=== PATIENT | female | born 1955 | race Caucasian/White ===

== ENCOUNTER 2020-07-10 09:28 | Outpatient (REF) | payer MEDICARE, SELFPAY ==
[2020-07-10 10:11] LABS: MANUAL DIFF FLAG NO
[2020-07-10 10:17] LABS: Basophils Percent Auto 0.8 % (0-2); Eosinophils Absolute Auto 0.1 X10*3/uL (0.0-0.4); Eosinophils Percent Auto 2.8 % (0-4); Hematocrit 41.8 % (37-47); Hemoglobin 13.5 g/dl (12.0-16.0); Imm Gran Abs Auto 0.01 X10*3/uL (0.00-0.03); Imm Gran Pct Auto 0.3 % (0.0-0.4); Mean Corpuscular HGB Conc 32.3 g/dl (31.0-35.0); Mean Corpuscular Volume 83.6 fL (80-98); Mean Platelet Volume 9.8 fL (9.4-12.3); Monocytes Absolute Auto 0.4 X10*3/uL (0.1-1.2); Monocytes Percent Auto 11.5 % (2-11); Neutrophils Absolute Auto 2.1 X10*3/uL (2.0-8.3); Neutrophils Percent Auto 57.6 % (45-73); Platelet Count 185 X10*3/uL (160-400); Red Cell Distribution Width 12.6 % (11.0-16.0); White Blood Count 3.6 X10*3/uL (4.8-10.8)
[2020-07-10 10:51] LABS: Alanine Aminotransferase 26 U/L (0-31); Albumin Level 4.1 g/dL (3.5-5.0); Alkaline Phosphatase 88 U/L (39-117); Anion Gap 8 (12-20); Aspartate Amino Transferase 21 U/L (5-31); Bilirubin Total 0.6 mg/dL (0.0-1.0); Blood Urea Nitrogen 16 mg/dL (9-16); Calcium 9.4 mg/dL (8.4-10.2); Carbon Dioxide 32 mmol/L (22-29); Chloride 104 mmol/L (96-108); Cholesterol 133 mg/dL; Estimated Glomerular Filt Rate > 60; Glucose Fasting 98 mg/dL (60-99); HDL Cholesterol 52 mg/dL; LDL Cholesterol Calculated 68 mg/dl; Potassium 3.8 mmol/l (3.3-5.1); Sodium 140 mmol/L (135-145); Total Protein 6.4 g/dL (6.5-8.0); Triglycerides 67 mg/dL
[2020-07-10 11:04] LABS: Thyroid Stimulating Hormone 0.89 uIU/mL (0.32-4.0)
--- NOTE | 2020-07-10 12:29 | MM_ITS ---
EXAMINATION: MM DIAGNOSTIC DIGITAL BREAST TOMOSYNTHESIS, LEFT CLINICAL INFORMATION: Six-month followup left breast calcifications. COMPARISON: Mammography: 01/17/2020 and studies dating back to 05/11/2011 TECHNIQUE: Digital breast tomosynthesis is performed in both the craniocaudal and mediolateral oblique views along with computer-aided detection (CAD). Synthesized 2D images are generated from the tomosynthesis. Additional spot magnification views left breast in craniocaudal and 90 degree mediolateral views performed. FINDINGS: There are scattered areas of fibroglandular density (ACR BI-RADS breast composition Category b). There is stability of calcifications in the mid lateral left breast. No linear branching forms identified. No developing mass is identified. No architectural distortion. Results are provided to the patient at time of visit by the technologist. MM/MM tomosynthesis diagnostic LT IMPRESSION: There are no significant changes from prior study. ASSESSMENT: BI-RADS 3: Probably Benign. RECOMMENDATION: Diagnostic mammography in 6 months. This patient's information was entered into a reminder system with a target due date for their next mammogram.
== END 2020-07-10 09:29 | disposition home or self-care (01) ==
LOC: HO.MAMMO 09:28
PROVIDERS: PCP Internal Medicine; Visit Provider Internal Medicine
DX: R92.1 Mammographic calcification found on diagnostic imaging of breast (principal); Z00.00 Encounter for general adult medical examination without abnormal findings; E11.9 Type 2 diabetes mellitus without complications; E03.9 Hypothyroidism, unspecified
CPT/HCPCS: 36415; 77061; 77065; 80053; 80061; 84443; 85025

== ENCOUNTER → 2021-01-08 09:45 | Outpatient (BNVA) | payer MEDICARE, SELFPAY | PROVIDERS: PCP Internal Medicine; Referring Provider Internal Medicine; Visit Provider Internal Medicine Cardiovascular Disease | DX: R07.89 Other chest pain (principal); I10 Essential (primary) hypertension | CPT/HCPCS: 93005; 99212 ==

== ENCOUNTER 2021-01-15 07:30 | Outpatient (REF) | payer MEDICARE, SELFPAY ==
--- NOTE | ~2021-01-15 | MM_ITS ---
EXAMINATION: MM DIAGNOSTIC DIGITAL BREAST TOMOSYNTHESIS, BILATERAL CLINICAL INFORMATION: Due for yearly. Also follow-up probable benign left breast calcifications mid 3:00 position. The lifetime risk of breast cancer based on the Tyrer-Cuzick Model is 6%. COMPARISON: Mammography: 07/10/2020, 01/17/2020, 69 03/23/2020 (BI-RADS 0) 12/28/2018, 01/07/2009. TECHNIQUE: Digital breast tomosynthesis is performed in both the craniocaudal and mediolateral oblique views along with computer-aided detection (CAD). Synthesized 2D images are generated from the tomosynthesis. Additional left magnification CC and left magnification ML views are provided. FINDINGS: There are scattered areas of fibroglandular density (ACR BI-RADS breast composition Category b). Parenchymal pattern is similar to prior studies. There is no interval mass or developing density or architectural abnormality. Chronic bilateral nipple retraction is again noted. The axilla are unremarkable. No abnormal right breast calcifications. The calcifications mid 3:00 left breast for follow-up are similar in number from prior diagnostic exam. Only 1 or 2 of the calcifications show layering milk of calcium. Most of the calcifications are punctate and do not confirms layering on follow-up today. Therefore, stereotactic sampling is suggested. Results and management options are discussed with the patient at time of visit. Patient is in agreement with tissue sampling under stereotactic guidance. MM/MM tomosynthesis diagnostic BI IMPRESSION: 1. Left: Calcifications mid 3:00 position. Although the calcifications are unchanged in number only 1 or 2 demonstrate layering. 2. Right: No mammographic evidence of malignancy. ASSESSMENT: BI-RADS 4: Suspicious (subcategory 4A: Low suspicion for malignancy) RECOMMENDATION: Stereotactic sampling left breast calcifications. This patient's information was entered into a reminder system with a target due date for their next mammogram.
== END 2021-01-15 07:31 | disposition home or self-care (01) ==
LOC: HO.MAMMO 07:30
PROVIDERS: PCP Internal Medicine; Visit Provider Internal Medicine
DX: R92.1 Mammographic calcification found on diagnostic imaging of breast (principal)
CPT/HCPCS: 77062; 77066

== ENCOUNTER 2021-01-26 07:10 | Outpatient (REF) | payer MEDICARE, SELFPAY ==
--- NOTE | ~2021-01-26 | MM_ITS ---
EXAMINATION: STEREOTACTIC TOMOSYNTHESIS-GUIDED VACUUM-ASSISTED BREAST BIOPSY, LEFT SPECIMEN RADIOGRAPH, LEFT POST PROCEDURE DIGITAL MAMMOGRAM, LEFT CLINICAL INFORMATION: Calcifications mid 3:00 left breast similar in number to prior diagnostic exam. Majority not showing layering at diagnostic imaging. Tissue sampling is suggested for further information. COMPARISON: Mammography 01/15/2021, 07/10/2020, 01/17/2020, 01/10/2020. TECHNIQUE/PROCEDURE: Informed consent was obtained from the patient after discussion of the benefits, risks, and alternatives to biopsy today. Patient did not discontinue may be aspirin, last dose yesterday. Possibility of hematoma and bruising discussed. Patient appeared to understand. Gave opportunity for questions. Patient wished to proceed with procedure and signed consent form. BIOPSY TABLE: Novopyx[employer] Prone Biopsy System. LESION: Fine calcifications central 3:00 left breast. There are more layering milk of calcium calcifications seen at time of targeting then appreciated on most recent diagnostic mammography. LOCAL ANESTHESIA: 8 mL 1% lidocaine; 15 mL 1% lidocaine with epinephrine. DERMATOTOMY: Single skin elijah dermatotomy performed. NEEDLE: [employer] 9-gauge vacuum assisted core biopsy device. APPROACH: lateral medial. TARGETING: Combination of digital breast tomosynthesis and stereotactic digital mammography used for targeting. CORES: 15. CLIP: [employer] T-shaped marker. SPECIMEN RADIOGRAPH: Specimen radiograph is taken in separate room using digital mammography. There are at least 6 fine calcifications in the excised cores. POST PROCEDURE UNILATERAL DIGITAL MAMMOGRAM: The post biopsy mammogram is performed in separate room using separate digital mammography equipment from the biopsy procedure. CC and ML views are obtained. There are scattered areas of fibroglandular density (breast composition category: b). The clip marker is 2.8 cm more superficial than the biopsy cavity on the CC view consistent with accordion effect. The calcifications are decreased at the biopsy site. No gross hematoma. The patient tolerated the procedure well. No immediate complications. Home instructions reviewed with the patient. Final pathology results are pending. MM/MM stereotactic biopsy LT IMPRESSION: 1. Digital tomosynthesis-guided core biopsy left breast with clip placement. The clip marker is 2.8 cm more superficial from the biopsy cavity consistent with accordion effect. 2. Specimen radiograph taken and post procedure mammogram. 3. Final pathology results pending. An addendum report will be issued.
[2021-01-26 08:08] LABS: Anion Gap 10 (12-20); Blood Urea Nitrogen 20 mg/dL (9-16); Calcium 9.1 mg/dL (8.4-10.2); Carbon Dioxide 28 mmol/L (22-29); Chloride 105 mmol/L (96-108); Estimated Glomerular Filt Rate > 60; Glucose Random 94 mg/dL (60-115); Potassium 3.9 mmol/L (3.3-5.1); Sodium 139 mmol/L (135-145)
== END 2021-01-26 07:11 | disposition home or self-care (01) ==
LOC: HO.MAMMO 07:10
PROVIDERS: Absent Provider Internal Medicine Cardiovascular Disease; PCP Internal Medicine; Visit Provider Internal Medicine
DX: R92.1 Mammographic calcification found on diagnostic imaging of breast (principal); I10 Essential (primary) hypertension
CPT/HCPCS: 19081; 36415; 80048; 88305

== ENCOUNTER → 2021-02-23 09:32 | Outpatient (REF) | payer MEDICARE, SELFPAY ==
--- NOTE | 2021-02-23 09:38 | CA_ITS ---
Transthoracic Echocardiogram Patient (Last, First, Middle): Amelie Chahal, Gender: Female Date of : 1955 Age: 65 Procedure Date: 02/23/2021 Procedure Type: Transthoracic Echocardiogram Location: OP Height: 160.02 cm Weight: 78.93 kg BSA: 1.82 m2 Heart Rate: bpm BP: 128 / 80 mmHg Auto Transmission Technician: Referring MD: Ritesh Sanders MD Symptoms: I10 - Essential (primary) hypertension Study Quality: Fair ECG Rhythm: Sinus Conclusions: - The left ventricular systolic function is normal. The visually estimated ejection fraction is between 60-65%. - There is a mobile atrial septum noted. There is no evidence of interatrial shunt by color Doppler. - No obvious valvular pathology seen on this study. - If clinically indicated, consider agitated saline contrast. Findings Left Ventricle Normal left ventricular cavity size. There is mildly increased left ventricular wall thickness. The left ventricular systolic function is normal. The visually estimated ejection fraction is between 60-65%. There is no evidence of regional wall motion abnormalities. Diastolic function is normal for age. E/E prime ratio is <8, consistent with normal filling pressures. Right Ventricle Normal right ventricular cavity size and systolic function. Atria The left atrium is mildly dilated. There is a mobile atrial septum noted. There is no evidence of interatrial shunt by color Doppler. The right atrium is normal in size. Aortic Valve There is a normal trileaflet aortic valve. There is no aortic valve stenosis. There is trace (trivial) aortic valve regurgitation. Mitral Valve There is mild mitral annular calcification. There is no mitral valve regurgitation. There is no mitral valve stenosis. Pulmonic Valve The pulmonic valve was not well visualized. There is trace pulmonic valve regurgitation. Tricuspid Valve Normal tricuspid valve structure. There is trace tricuspid valve regurgitation. The pulmonary artery systolic pressure is normal. Great Vessels Top normal ascending aortic size at 3.7 cm. Venous The inferior vena cava is normal in size and collapses greater than 50% with inspiration. Pericardium/Pleural There is no evidence of pericardial effusion. Prior Study Comparison No significant change compared to prior study dated: 11/10/2017. Recommendations, Care & Conclusions No obvious valvular pathology seen on this study. Measurements 2D Linear Measurements IVSd: 1.23 0.6-0.9/0.6-1.0 cm LVIDd: 3.98 3.9-5.3/4.2-5.9 cm LVIDd Index: 2.19 2.4-3.2/2.2-3.1 cm/m2 LVIDs: 2.71 2.0-3.6 cm LVPWd: 1.28 0.7-1.1 cm Ao Root: 3.30 2.1-3.5 cm LA Diam: 3.90 2.7-3.8/3.0-4.0 cm LAIDs Index: 2.14 1.5-2.3 cm/m2 LV Mass: 218.73 67-162/88-224 g LV Mass Index: 120.18 43-95/49-115 g/m2 LVOT Diam: 2.20 3.0+(-)1.3 cm 2D Systolic Function EF 4C: 62.60 >55% EF 2C: 57.20 >55% EF BiP: 60.10 >55% Mitral Valve MV Pk E: 0.56 MV PK A: 0.80 MV Decel Time: 315.00 E/A: 0.70 E'Lateral: 11.20 E'Medial: 9.36 E/E' Med: 6.00 E/E' Lat: 5.00 PHT: 92.00 MVA PHT: 2.39 Decel Trinity: 1.77 Aortic Valve AoV Pk Rodrick: 1.36 AoV Mn Rodrick: 0.92 AoV VTI: 0.31 AoV Pk Grad: 7.00 Aov Mn Grad: 4.00 REJI Cont.VTI: 2.74 LVOT LVOT Pk Rodrick: 1.01 LVOT Mn Rodrick: 0.60 LVOT VTI: 0.23 LVOT Pk Grad: 4.00 LVOT Mn Grad: 2.00 LVOT Diam: 2.20 LVOT Area: 3.80 Diastolic Function MV Pk E: 0.56 MV Pk A: 0.80 E/A: 0.70 E'Medial: 9.36 E/E' Med: 6.00 E' Laterial: 11.20 E/E' Lat: 5.00 Right Ventricle TAPSE (mm): 20.00 TVS' Rodrick: 13.00 Tricuspid Valve TR Pk Rodrick: 2.01 TR Pk Grad: 16.00 RA Press: 3.00 RVSP: 19.00 Great Vessels Aorta Ao Root-2D: 3.30 2.0-3.7 cm Ao Asc: 3.70 2.1-3.4 cm Pulmonary Valve PV Pk Rodrick: 0.75 Peak PV Grad: 2.00 Updated in Other Vendor System with Status of Final Luis Samano MD electronically signed on 02/23/2021 4:44:52 PM with status of Final
== END ==
LOC: HO.CARD 09:32
PROVIDERS: PCP Internal Medicine; Visit Provider Internal Medicine Cardiovascular Disease
DX: R07.89 Other chest pain (principal); I10 Essential (primary) hypertension
CPT/HCPCS: 93306

== ENCOUNTER → 2021-04-02 08:53 | Outpatient (BNVA) | payer MEDICARE, SELFPAY | PROVIDERS: PCP Internal Medicine; Referring Provider Internal Medicine; Visit Provider Internal Medicine Cardiovascular Disease | DX: I25.10 Atherosclerotic heart disease of native coronary artery without angina pectoris (principal); I10 Essential (primary) hypertension | CPT/HCPCS: 99212 ==

== ENCOUNTER 2021-04-09 07:03 | Outpatient (REF) | payer MEDICARE, SELFPAY ==
[2021-04-09 07:48] LABS: Cholesterol 135 mg/dL; HDL Cholesterol 62 mg/dL; LDL Cholesterol Calculated 63 mg/dl; Triglycerides 50 mg/dL
== END 2021-04-09 07:04 | disposition home or self-care (01) ==
LOC: HO.LAB 07:03
PROVIDERS: PCP Internal Medicine; Visit Provider Internal Medicine Cardiovascular Disease
DX: E78.5 Hyperlipidemia, unspecified (principal); I25.10 Atherosclerotic heart disease of native coronary artery without angina pectoris
CPT/HCPCS: 36415; 80061; 86141

== ENCOUNTER 2021-06-05 18:49 | Outpatient (REF) | payer MEDICARE, SELFPAY ==
[2021-06-05 19:41] LABS: Influenza A PCR NEGATIVE (Negative); Influenza B PCR NEGATIVE (Negative); Resp Syncy Virus RNA Qual PCR NEGATIVE (Negative); SARS COV2 PCR INHOUSE NEGATIVE (Negative)
== END 2021-06-05 18:50 | disposition home or self-care (01) ==
LOC: HO.LNP 18:49
PROVIDERS: Visit Provider Internal Medicine
DX: R43.9 Unspecified disturbances of smell and taste (principal); Z20.822 Contact with and (suspected) exposure to COVID-19
CPT/HCPCS: 0241U

== ENCOUNTER 2021-08-12 08:12 | Outpatient (REF) | payer MEDICARE, SELFPAY ==
--- NOTE | ~2021-08-12 | XR_ITS ---
EXAMINATION: TWO-VIEW CHEST AND LEFT HIP CLINICAL INFORMATION: Chest pain. Hip pain. COMPARISON: August 10, 2019 and April 27, 2011 TECHNIQUE: 2 views of the left hip and PA and lateral views of the chest. FINDINGS: PA and [place] the chest do not demonstrate any evidence of acute parenchymal disease, pneumothorax, or pleural effusion. Heart normal size. No evidence of pulmonary edema. There is chronic scarring or calcific lesion seen about the right apex. There is no evidence of acute fracture or dislocation of the left hip. Left hip joint space is maintained. There is spurring of the greater trochanter. XR/XR chest 2V IMPRESSION: No acute parenchymal disease within the chest. Left hip greater trochanter spurring.
--- NOTE | ~2021-08-12 | XR_ITS ---
EXAMINATION: TWO-VIEW CHEST AND LEFT HIP CLINICAL INFORMATION: Chest pain. Hip pain. COMPARISON: August 10, 2019 and April 27, 2011 TECHNIQUE: 2 views of the left hip and PA and lateral views of the chest. FINDINGS: PA and [place] the chest do not demonstrate any evidence of acute parenchymal disease, pneumothorax, or pleural effusion. Heart normal size. No evidence of pulmonary edema. There is chronic scarring or calcific lesion seen about the right apex. There is no evidence of acute fracture or dislocation of the left hip. Left hip joint space is maintained. There is spurring of the greater trochanter. XR/XR hip LT 1V IMPRESSION: No acute parenchymal disease within the chest. Left hip greater trochanter spurring.
[2021-08-12 08:32] LABS: MANUAL DIFF FLAG NO
[2021-08-12 09:01] LABS: Basophils Percent Auto 0.5 % (0-2); Eosinophils Absolute Auto 0.1 X10*3/uL (0.0-0.4); Eosinophils Percent Auto 2.6 % (0-4); Hematocrit 41.2 % (37.0-47.0); Hemoglobin 13.6 g/dl (12.0-16.0); Imm Gran Abs Auto 0.01 X10*3/uL (0.00-0.03); Imm Gran Pct Auto 0.3 % (0.0-0.4); Lymphocytes Percent Auto 27.4 % (20-40); Mean Corpuscular Hemoglobin 27.6 pg (27.0-33.0); Mean Corpuscular Volume 83.6 fL (80.0-98.0); Mean Platelet Volume 10.2 fL (9.4-12.3); Monocytes Absolute Auto 0.4 X10*3/uL (0.1-1.2); Monocytes Percent Auto 10.8 % (2-11); Neutrophils Absolute Auto 2.2 x10*3/uL (2.0-8.3); Neutrophils Percent Auto 58.4 % (45-73); Platelet Count 181 X10*3/uL (160-400); Red Blood Count 4.93 X10*6/uL (4.20-5.50); Red Cell Distribution Width 12.8 % (11.0-16.0); White Blood Count 3.8 X10*3/uL (4.8-10.8)
[2021-08-12 09:37] LABS: Alanine Aminotransferase 25 U/L (0-31); Albumin Level 4.2 g/dL (3.5-5.0); Alkaline Phosphatase 68 U/L (39-117); Anion Gap 9 (12-20); Aspartate Amino Transferase 25 U/L (5-31); Bilirubin Total 0.8 mg/dL (0.0-1.0); Blood Urea Nitrogen 14 mg/dL (9-16); Calcium 9.9 mg/dL (8.4-10.2); Carbon Dioxide 29 mmol/L (22-29); Chloride 105 mmol/L (96-108); Cholesterol 134 mg/dL; Estimated Glomerular Filt Rate > 60; Glucose Fasting 90 mg/dL (60-99); HDL Cholesterol 59 mg/dL; LDL Cholesterol Calculated 65 mg/dl; Potassium 4.1 mmol/L (3.3-5.1); Sodium 139 mmol/L (135-145); Total Protein 6.8 g/dL (6.5-8.0); Triglycerides 54 mg/dL
[2021-08-12 09:58] LABS: Thyroid Stimulating Hormone 1.36 uIU/mL (0.32-4.0)
== END 2021-08-12 08:13 | disposition home or self-care (01) ==
LOC: HO.XRAY 08:12
PROVIDERS: PCP Internal Medicine; Visit Provider Internal Medicine
DX: Z00.00 Encounter for general adult medical examination without abnormal findings (principal); R07.9 Chest pain, unspecified; M25.552 Pain in left hip; Z13.0 Encounter for screening for diseases of the blood and blood-forming organs and certain disorders involving the immune mechanism
CPT/HCPCS: 36415; 71046; 73501; 80053; 80061; 84443; 85025

== ENCOUNTER 2022-01-27 08:30 | Outpatient (REF) | payer MEDICARE, SELFPAY ==
--- NOTE | ~2022-01-27 | MM_ITS ---
EXAMINATION: MM SCREENING DIGITAL BREAST TOMOSYNTHESIS, BILATERAL CLINICAL INFORMATION: Screening. Asymptomatic. Benign left stereotactic biopsy 01/26/2021 (fibrocystic changes, apocrine metaplasia, focal adenosis and microcalcifications. No atypia or malignancy). The lifetime risk of breast cancer based on the Tyrer-Cuzick Model is 6%. COMPARISON: Mammography: 01/26/2021, 01/15/2021, 07/10/2020, 01/17/2020, 01/10/2020,. 12/28/2018 TECHNIQUE: Digital breast tomosynthesis is performed in both the craniocaudal and mediolateral oblique views along with computer-aided detection (CAD). Synthesized 2D images are generated from the tomosynthesis. FINDINGS: There are scattered areas of fibroglandular density (ACR BI-RADS breast composition Category b). There are no significant masses, abnormal calcifications, or other abnormalities. There is biopsy clip marker mid outer left breast with marked decrease in the calcifications consistent with the sampling chronic bilateral nipple retraction is seen similar to prior exam. No significant changes. MM/MM tomosynthesis screening BI IMPRESSION: No mammographic evidence of malignancy. ASSESSMENT: BI-RADS 2: Benign RECOMMENDATION: Routine annual mammography screening. This patient's information was entered into a reminder system with a target due date for their next mammogram.
== END 2022-01-27 08:31 | disposition home or self-care (01) ==
LOC: HO.MAMMO 08:30
PROVIDERS: PCP Internal Medicine; Visit Provider Internal Medicine
DX: Z12.31 Encounter for screening mammogram for malignant neoplasm of breast (principal)
CPT/HCPCS: 77063; 77067

== ENCOUNTER 2022-04-01 08:47 | Outpatient (REF) | payer MEDICARE, SELFPAY ==
[2022-04-01 10:48] LABS: Anion Gap 17 (12-20); Blood Urea Nitrogen 20 mg/dL (9-16); Calcium 9.5 mg/dL (8.4-10.2); Carbon Dioxide 24 mmol/L (22-29); Chloride 101 mmol/L (96-108); Estimated Glomerular Filt Rate > 60; Glucose Random 73 mg/dL (60-115); Magnesium 1.9 mg/dL (1.6-2.6); Sodium 138 mmol/L (135-145)
== END 2022-04-01 08:48 | disposition home or self-care (01) ==
LOC: HO.LAB 08:47
PROVIDERS: PCP Internal Medicine; Referring Provider Internal Medicine; Visit Provider Internal Medicine Cardiovascular Disease
DX: I11.0 Hypertensive heart disease with heart failure (principal); I50.30 Unspecified diastolic (congestive) heart failure; I25.10 Atherosclerotic heart disease of native coronary artery without angina pectoris
CPT/HCPCS: 36415; 80048; 83735; 93005; 99212

== ENCOUNTER → 2022-08-13 13:43 | Outpatient (REF) | payer MEDICARE, SELFPAY ==
--- NOTE | 2022-08-13 14:00 | ECG_ITS ---
Test Reason : chest pain Blood Pressure : / mmHG Vent. Rate : 058 BPM Atrial Rate : 058 BPM P-R Int : 166 ms QRS Dur : 080 ms QT Int : 440 ms P-R-T Axes : 033 002 001 degrees QTc Int : 431 ms Sinus bradycardia Nonspecific ST abnormality Abnormal ECG When compared with ECG of 13-SEP-2005 10:25, Premature supraventricular complexes are no longer Present ST now depressed in Anterior leads Referred By: Etienne Page Electronically Signed By:MARVIN LA MD
== END ==
LOC: HO.CARD 13:43
PROVIDERS: PCP Internal Medicine; Visit Provider Internal Medicine
DX: R07.89 Other chest pain (principal)
CPT/HCPCS: 93005

== ENCOUNTER 2022-08-19 07:05 | Outpatient (REF) | payer MEDICARE, SELFPAY ==
--- NOTE | ~2022-08-19 | XR_ITS ---
EXAMINATION: XR CHEST CLINICAL INFORMATION: Chest pain. COMPARISON: Chest radiograph to 08/12/2021. TECHNIQUE: 2 views of the chest were obtained. FINDINGS: Stable platelike opacities in the right apex. No new focal airspace opacities, pleural effusions or pneumothorax. Normal appearance of the cardiomediastinal silhouette. Mild thoracic spondylosis. No acute osseous abnormalities. XR/XR chest 2V IMPRESSION: 1. No acute cardiopulmonary findings. 2. Stable platelike opacities in the right apex.
[2022-08-19 07:12] LABS: MANUAL DIFF FLAG NO
[2022-08-19 07:58] LABS: Basophils Percent Auto 0.6 % (0-2); Eosinophils Absolute Auto 0.1 X10*3/uL (0.0-0.4); Eosinophils Percent Auto 2.4 % (0-4); Hematocrit 41.6 % (37.0-47.0); Hemoglobin 13.7 g/dl (12.0-16.0); Imm Gran Abs Auto 0.02 X10*3/uL (0.00-0.03); Imm Gran Pct Auto 0.4 % (0.0-0.4); Lymphocytes Absolute Auto 1.4 X10*3/uL (1.2-4.9); Lymphocytes Percent Auto 27.5 % (20-40); Mean Corpuscular HGB Conc 32.9 g/dl (31.0-35.0); Mean Corpuscular Hemoglobin 26.9 pg (27.0-33.0); Mean Corpuscular Volume 81.7 fL (80.0-98.0); Mean Platelet Volume 9.3 fL (9.4-12.3); Monocytes Absolute Auto 0.5 X10*3/uL (0.1-1.2); Neutrophils Absolute Auto 2.9 x10*3/uL (2.0-8.3); Neutrophils Percent Auto 59.1 % (45-73); Platelet Count 208 X10*3/uL (160-400); Red Blood Count 5.09 X10*6/uL (4.20-5.50); Red Cell Distribution Width 12.4 % (11.0-16.0)
[2022-08-19 08:24] LABS: Alanine Aminotransferase 28 U/L (0-31); Albumin Level 3.9 g/dL (3.5-5.0); Alkaline Phosphatase 95 U/L (39-117); Anion Gap 12 (12-20); Aspartate Amino Transferase 23 U/L (5-31); Bilirubin Total 0.6 mg/dL (0.0-1.0); Blood Urea Nitrogen 18 mg/dL (9-16); Calcium 9.3 mg/dL (8.4-10.2); Carbon Dioxide 28 mmol/L (22-29); Chloride 105 mmol/L (96-108); Cholesterol 128 mg/dL; Estimated Glomerular Filt Rate > 60; Glucose Fasting 86 mg/dL (60-99); HDL Cholesterol 53 mg/dL; LDL Cholesterol Calculated 67 mg/dl; Sodium 141 mmol/L (135-145); Total Protein 6.2 g/dL (6.5-8.0); Triglycerides 42 mg/dL
[2022-08-19 08:43] LABS: Thyroid Stimulating Hormone 1.21 uIU/mL (0.32-4.0)
== END 2022-08-19 07:06 | disposition home or self-care (01) ==
LOC: HO.LAB 07:05
PROVIDERS: PCP Internal Medicine; Visit Provider Internal Medicine
DX: R07.9 Chest pain, unspecified (principal); E03.9 Hypothyroidism, unspecified; D64.9 Anemia, unspecified; N28.9 Disorder of kidney and ureter, unspecified; E78.5 Hyperlipidemia, unspecified
CPT/HCPCS: 36415; 71046; 80053; 80061; 84443; 85025

== ENCOUNTER → 2022-08-25 08:24 | Outpatient (BNVA) | payer MEDICARE, SELFPAY | PROVIDERS: PCP Internal Medicine; Visit Provider Internal Medicine Cardiovascular Disease | DX: R07.89 Other chest pain (principal); I25.10 Atherosclerotic heart disease of native coronary artery without angina pectoris; Z79.82 Long term (current) use of aspirin; Z79.899 Other long term (current) drug therapy | CPT/HCPCS: 99212 ==

== ENCOUNTER 2023-02-16 08:28 | Outpatient (REF) | payer MEDICARE, SELFPAY ==
--- NOTE | ~2023-02-16 | MM_ITS ---
EXAMINATION: MM SCREENING DIGITAL BREAST TOMOSYNTHESIS, BILATERAL CLINICAL INFORMATION: Screening. Asymptomatic. COMPARISON: Mammography: This study is compared with prior exams dating back to 2019. TECHNIQUE: Digital breast tomosynthesis is performed in both the craniocaudal and mediolateral oblique views along with computer-aided detection (CAD). Synthesized 2D images are generated from the tomosynthesis. FINDINGS: There are scattered areas of fibroglandular density (ACR BI-RADS breast composition Category b). There are no significant masses, abnormal calcifications, or other abnormalities. There is chronic, benign, slight deformity of the periareolar region of the right breast. There is a tissue marker in the lateral aspect the left breast from prior benign percutaneous biopsy. MM/MM tomosynthesis screening BI IMPRESSION: No mammographic evidence of malignancy. ASSESSMENT: BI-RADS BI-RADS 2 - Benign Findings RECOMMENDATION: Routine annual mammography screening. 1 year F/U This examination should not preclude the clinical evaluation of a suspicious palpable abnormality. This patient's information was entered into a reminder system with a target due date for their next mammogram.
== END 2023-02-16 08:29 | disposition home or self-care (01) ==
LOC: HO.MAMMO 08:28
PROVIDERS: PCP Internal Medicine; Visit Provider Internal Medicine
DX: Z12.31 Encounter for screening mammogram for malignant neoplasm of breast (principal)
CPT/HCPCS: 77063; 77067

== ENCOUNTER → 2023-02-16 08:30 | Outpatient (BNV) | payer MEDICARE, SELFPAY | PROVIDERS: PCP Internal Medicine; Visit Provider Radiology Diagnostic Radiology | DX: Z12.31 Encounter for screening mammogram for malignant neoplasm of breast (principal) | CPT/HCPCS: 77063; 77067 ==

== ENCOUNTER 2023-08-10 08:50 | Outpatient (AMB) | payer MEDICARE, SELFPAY ==
[2023-08-10 08:54] VITALS: BP 112/64; PULSE 65; O2SAT 98; BMI 30.3
--- NOTE | 2023-08-10 08:54 | MHC.PC.OV ---
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: Not Required per policy Accompanied by: Self / Same As Patient Allergies GUY Inhibitors Allergy (Unknown, Verified 08/10/23 08:55) cough lisinopril [LISINOPRIL] Adverse Reaction (Unknown, Verified 08/10/23 08:55) COUGH Medication List - Last Reconciled 08/10/23 by Etienne Page MD acyclovir 200 mg PO QID ascorbic acid (vitamin C) 500 mg PO DAILY aspirin 81 mg PO DAILY atorvastatin 20 mg PO DAILY betamethasone, augmented 0.05 % 1 appl topical BID coenzyme Q10 (Ultra CoQ10) 150 mg PO DAILY desonide 0.05% 1 appl topical BID-QID PRN estradiol 0.01%(0.1mg/gram) grams vaginal hydralazine 10 mg PO ONCE PRN hydrochlorothiazide 25 mg PO DAILY ketoconazole 2% 1 appl topical 2XW metoprolol succinate ER 12.5 mg (1/2 x 25 mg) PO DAILY 90 days metronidazole 1% 1 appl topical DAILY nirmatrelvir-ritonavir 300 mg (150 mg x 2)-100 mg (Paxlovid) take TWO 150 mg tablets of nirmatrelvir with ONE 100 mg tablet of ritonavir twice daily for 5 days orally; omega-3 fatty acids (Fish Oil Concentrate) 1,000 mg PO DAILY spironolactone 12.5 mg (1/2 x 25 mg) PO DAILY tolterodine ER 2 mg PO DAILY triamcinolone acetonide 0.5% 1 appl topical BID PRN zinc 50 mg PO DAILY Tobacco use date assessed: 08/10/23 Fall risk assessment: No Falls in past year Last assessed Fall Risk: 08/10/23 Dental Screening Dental Screen Date: 08/10/23 Did you have a dental visit in the last 12 months?: No Did you have a dental problem in the last 6 months where you did not have access to dental care?: No Was dental information given to patient?: Patient has dentist HPI Annual Exam HPI Details Hyperlipidemia and hypertension; feels well REPLACED BY [facility] Medical History Abnormal nuclear stress test CAD (coronary artery disease) Hyperlipidemia Hypertension Obesity Surgical History History of cystocele History of appendectomy History of cystoscopy H/O basal cell carcinoma excision Family History Father No problems noted. Mother Stomach cancer Social History Housing: Condominium Alcohol intake: current Alcohol intake frequency: holidays/special occasions only Patient Tobacco Use Status: Never used Tobacco e-Cigarette/Vaping Use: Never Used Second Hand Smoke Exposure: No service: No Current occupational status: employed Current occupational exposures/hazards: No Cognitive needs: No Hearing needs: No Vision needs: Yes Questionnaire PHQ-9 Over the last 2 weeks, how often have you been bothered by any of the following problems? 1. Little interest or pleasure in doing things: not at all 2. Feeling down, depressed, or hopeless: not at all 3. Trouble falling or staying asleep, or sleeping too much: not at all 4. Feeling tired or having little energy: not at all 5. Poor appetite or overeating: not at all 6. Feeling bad about yourself - or that you are a failure or have let yourself or your family down: not at all 7. Trouble concentrating on things, such as reading the newspaper or watching television: not at all 8. Moving or speaking so slowly that other people could have noticed. Or the opposite - being so fidgety or restless that you have been moving around a lot more than usual: not at all 9. Thoughts that you would be better off or of hurting yourself in some way: not at all Total score: 0 Depression Screening Interpretation: Negative Depression Screening Done: Yes 28800 - PHQ-9 Billing: Yes Source: Developed by Drs. Johann Hernandez, Merary Mcniell, Jesus Pfeiffer and colleagues, with an educational candelario from [employer]. Thrive Questionnaire Date Thrive assessed: 08/10/23 I am a: Patient What is your living situation today?: I have a steady place to live Within the past 12 months, did the food you bought not last and you didn't have the money to get more?: Never true Within the past 12 months, did you worry whether your food would run out before you got money to buy more?: Never true Do you have trouble paying for medicines?: No Do you have trouble getting transportation to medical appointments?: No Do you have trouble paying your heating and electricity bill?: No Do you have trouble taking care of your child, family member or friend?: No Do you have trouble with day-to-day activities such as bathing, preparing meals, shopping, managing finances, etc.?: No Are you currently unemployed and looking for a job?: No Are you interested in more education?: No Please select the resources that you would like help with: None THRIVE Score: 0 AUDIT C Alcohol Use Questionnaire (AUDIT-C) 1. How often do you have a drink containing alcohol?: Never Total Score: 0 Score Reviewed/Action Taken: Yes UNIQUE-7 AMB Questionnaire UNIQUE-7 Date UNIQUE - 7 assessed: 08/10/23 Feeling nervous, anxious, or on edge: 0 = Not at all Not being able to stop or control worryin = Not at all Worrying too much about different things: 0 = Not at all Trouble relaxin = Not at all Being so restless that it is hard to sit still: 0 = Not at all Becoming easily annoyed or irritable: 0 = Not at all Feeling afraid as if something awful might happen: 0 = Not at all Total UNIQUE-7 score (0-4 normal; 5-9 mild; 10-14 moderate; 15-21 severe): 0 Source: Developed by Drs. Johann Hernandez, Merary Mcneill, Jesus Pfeiffer and colleagues, with an educational candelario from [employer]. UNIQUE-7 Assessment Billing UNIQUE-7 Assessment Tool: UNIQUE-7 Assessment 60535 Review of Systems Const Denies chills, Denies fatigue, Denies headache(s) and Denies weight loss Eyes Denies change in vision, Denies diplopia and Denies eye pain ENT Denies vertigo, Denies dizziness, Denies headache(s) and Denies nasal discharge Card Denies chest pain, Denies rapid heart rate and Denies dyspnea on exertion Resp Denies chest congestion, Denies cough, Denies pain with cough and Denies dyspnea on exertion GI Denies abdominal pain, Denies hematochezia and Denies change in bowel habits Musc Denies myalgias, Denies arthralgias and Denies joint swelling Skin/Breast Denies lesions and Denies unusual bruising Neuro Denies vertigo, Denies dizziness, Denies headache(s) and Denies focal weakness Endo Denies fatigue Physical exam (Primary Care) Vital Signs: Last Vital Signs Pulse 65 08/10/23 08:54 BP 112/64 08/10/23 08:54 Pulse Ox 98 08/10/23 08:54 Oxygen Delivery Method Room Air 08/10/23 08:54 BMI result Body Mass Index 30.3 Tobacco/Smoking Status: Tobacco use Status Tobacco use date assessed 08/10/23 08/10/23 08:56 Patient Tobacco Use Status Never used Tobacco 08/10/23 08:56 e-Cigarette/Vaping Use Never Used 08/10/23 08:56 PHQ-9: PHQ-9 Score PHQ-9: Total score 0 08/10/23 08:56 Depression Screening Interpretation: Negative Thrive Assessment: Date of Thrive Assessment Date Thrive assessed 08/10/23 08/10/23 08:56 Const General: cooperative, healthy appearing and no acute distress Orientation/consciousness: oriented to person, oriented to place and oriented to time [facility] Head: Yes normal to inspection, Yes normocephalic and Yes atraumatic Mouth: Normal oral and palatal mucosa present and tongue normal Throat: Yes posterior oropharynx normal and Yes uvula midline Eyes General: appearance normal, both eyes and all related structures Neck Neck: Yes normal visual inspection, Yes full ROM and Yes no lymphadenopathy Thyroid: Thyroid normal Carotids: normal carotid upstroke Chest Chest palpation & inspection: normal inspection of the chest Resp Effort & Inspection: normal respiratory effort and able to speak in complete sentences Auscultation: clear to auscultation bilaterally Cardio Jugular venous distension: no JVD Palpation: normal PMI Rate: regular rate Rhythm: regular rhythm Heart sounds: S1 normal heart sound present and S2 normal heart sound present GI Inspection: Yes normal to inspection Palpation (GI): Soft to palpation and No hepatosplenomegaly present Auscultation: normal bowel sounds General: Yes no CVA tenderness Back/Spine/Pelvis Back: no CVA tenderness Skin General skin exam: no rashes or lesions noted Neuro General: oriented to person, oriented to place and oriented to time Extrem General: Yes normal to inspection and Yes full ROM Assessment and Plan Assessment & Plan (1) Physical exam: Code(s): Z00.00 - Encounter for general adult medical examination without abnormal findings Plan: do labs; ref colonoscopy (2) Hypertension: Code(s): I10 - Essential (primary) hypertension Plan: stable; same rx (3) Hyperlipidemia: Code(s): E78.5 - Hyperlipidemia, unspecified Orders: Orders Thyroid Stimulating Hormone Today E03.9 - Hypothyroidism, unspecified Comprehensive [place]. Panel Fast Today N28.9 - Disorder of kidney and ureter, unspecified Lipid Panel Today E78.5 - Hyperlipidemia, unspecified Complete Blood Count Auto Diff Today D64.9 - Anemia, unspecified Referrals Gastroenterology Referral Z12.11 - Encounter for screening for malignant neoplasm of colon Medications: New desonide 0.05% 1 appl topical BID-QID PRN 60 grams 2RF itching Coding Level of Care Code Est Pt Prev Care >65y(14324) Diagnoses Physical exam Z00.00 Hypertension I10 Hyperlipidemia E78.5 Additional Codes UNIQUE-7 Assessment Billing - UNIQUE-7 Assessment Tool: UNIQUE-7 Assessment 03438 ([id number])
== END 2023-08-10 09:18 | disposition home or self-care (01) ==
PROVIDERS: Visit Provider Internal Medicine
DX: Z00.00 Encounter for general adult medical examination without abnormal findings (principal); I10 Essential (primary) hypertension; E78.5 Hyperlipidemia, unspecified
CPT/HCPCS: 99397

== ENCOUNTER 2023-08-15 08:26 | Outpatient (REF) | payer MEDICARE, SELFPAY ==
[2023-08-15 08:46] LABS: MANUAL DIFF FLAG NO
[2023-08-15 09:18] LABS: Basophils Percent Auto 0.7 % (0-2); Eosinophils Absolute Auto 0.1 X10*3/uL (0.0-0.4); Eosinophils Percent Auto 1.9 % (0-4); Hematocrit 41.7 % (37.0-47.0); Imm Gran Abs Auto 0.02 X10*3/uL (0.00-0.03); Imm Gran Pct Auto 0.5 % (0.0-0.4); Lymphocytes Absolute Auto 1.1 X10*3/uL (1.2-4.9); Lymphocytes Percent Auto 24.6 % (20-40); Mean Corpuscular HGB Conc 33.6 g/dl (31.0-35.0); Mean Corpuscular Hemoglobin 27.7 pg (27.0-33.0); Mean Corpuscular Volume 82.4 fL (80.0-98.0); Mean Platelet Volume 9.8 fL (9.4-12.3); Monocytes Absolute Auto 0.4 X10*3/uL (0.1-1.2); Monocytes Percent Auto 10.2 % (2-11); Neutrophils Absolute Auto 2.7 x10*3/uL (2.0-8.3); Neutrophils Percent Auto 62.1 % (45-73); Platelet Count 201 X10*3/uL (160-400); Red Blood Count 5.06 X10*6/uL (4.20-5.50); Red Cell Distribution Width 13.2 % (11.0-16.0); White Blood Count 4.3 X10*3/uL (4.8-10.8)
[2023-08-15 10:27] LABS: Alanine Aminotransferase 25 U/L (0-31); Albumin Level 4.1 g/dL (3.5-5.0); Alkaline Phosphatase 75 U/L (39-117); Anion Gap 11 (12-20); Aspartate Amino Transferase 21 U/L (5-31); Bilirubin Total 0.7 mg/dL (0.0-1.0); Blood Urea Nitrogen 15 mg/dL (9-16); Calcium 9.7 mg/dL (8.4-10.2); Carbon Dioxide 28 mmol/L (22-29); Chloride 106 mmol/L (96-108); Cholesterol 154 mg/dL (<200); Estimated Glomerular Filt Rate > 60; Glucose Fasting 94 mg/dL (60-99); HDL Cholesterol 67 mg/dL (>40); LDL Cholesterol Calculated 75 mg/dL (<100); Sodium 141 mmol/L (135-145); Total Protein 6.7 g/dL (6.5-8.0); Triglycerides 63 mg/dL (<150)
[2023-08-15 10:33] LABS: Thyroid Stimulating Hormone 1.43 uIU/mL (0.32-4.0)
== END 2023-08-15 08:27 | disposition home or self-care (01) ==
LOC: HO.LAB 08:26
PROVIDERS: PCP Internal Medicine; Visit Provider Internal Medicine
DX: E03.9 Hypothyroidism, unspecified (principal); D64.9 Anemia, unspecified; N28.9 Disorder of kidney and ureter, unspecified; E78.5 Hyperlipidemia, unspecified
CPT/HCPCS: 36415; 80053; 80061; 84443; 85025

== ENCOUNTER 2023-08-29 08:49 | Outpatient (AMB) | payer MEDICARE, SELFPAY ==
[2023-08-29 08:54] VITALS: BP 128/80; BMI 31.3
--- NOTE | 2023-08-29 08:54 | A.OFFVIS_ITS ---
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 Allergies GUY Inhibitors Allergy (Unknown, Verified 08/10/23 08:55) cough lisinopril [LISINOPRIL] Adverse Reaction (Unknown, Verified 08/10/23 08:55) COUGH Medication List - Last Reconciled 08/29/23 by Ritesh Sanders MD acyclovir 200 mg PO QID ascorbic acid (vitamin C) 500 mg PO DAILY aspirin 81 mg PO DAILY atorvastatin 20 mg PO DAILY betamethasone, augmented 0.05 % 1 appl topical BID coenzyme Q10 (Ultra CoQ10) 150 mg PO DAILY desonide 0.05% 1 appl topical BID-QID PRN hydrochlorothiazide 25 mg PO DAILY ketoconazole 2% 1 appl topical 2XW metoprolol succinate ER 12.5 mg (1/2 x 25 mg) PO DAILY 90 days metronidazole 1% 1 appl topical DAILY omega-3 fatty acids (Fish Oil Concentrate) 1,000 mg PO DAILY spironolactone 12.5 mg (1/2 x 25 mg) PO DAILY zinc 50 mg PO DAILY HPI HPI Comments History of Present Illness Details Amelie comes for follow-up. She got COVID in June and since then she has been noticing increased exertional shortness of breath with minimal activity. She complains of no orthopnea or PND. No significant leg edema usually gets leg edema by the end of the day. No exertional chest pain. Blood pressures been generally well controlled. She does also complain of cough but denies any wheezing. No cough productive of phlegm. Denies prolonged palpitation irregular heartbeat. [facility] Medical History Obesity CAD (coronary artery disease) Abnormal nuclear stress test Hyperlipidemia Hypertension Surgical History History of cystocele History of appendectomy History of cystoscopy H/O basal cell carcinoma excision Family History Father No problems noted. Mother Stomach cancer [facility] Alcohol intake: current Alcohol intake frequency: holidays/special occasions only Patient Tobacco Use Status: Never used Tobacco e-Cigarette/Vaping Use: Never Used Second Hand Smoke Exposure: No service: No Current occupational status: employed Current occupational exposures/hazards: No Cognitive needs: No Hearing needs: No Vision needs: Yes Review of Systems Const Denies chills, Denies fatigue, Denies fever(s), Denies frequent falls, Denies weakness, Denies weight gain and Denies weight loss ENT Denies dizziness Card Denies chest pain, Denies leg edema, Denies lightheadedness, Denies palpitation s, Reports dyspnea, Denies dyspnea on exertion, Denies orthopnea and Denies other (loss of consciousness) Resp Denies cough, Reports dyspnea and Denies dyspnea on exertion GI Denies hematochezia and Denies change in stool character Musc Denies abnormal gait, Denies muscle weakness, Denies numbness, Denies radiating pain into limb and Denies tingling Neuro Denies abnormal gait, Denies dizziness, Denies frequent falls, Denies numbness, Denies tingling and Denies weakness Endo Denies fatigue and Denies palpitations Physical Exam Vital Signs: Last Vital Signs BP 128/80 08/29/23 08:54 BMI result Body Mass Index 31.3 Const General: cooperative, comfortable, no acute distress, alert, awake and well groomed Nutritional Appearance: overweight Orientation/consciousness: patient oriented x3 Limitations: no limitations Neck Neck: Yes trachea midline, Yes supple and Yes no JVD Resp Effort & Inspection: normal respiratory effort Auscultation: clear to auscultation bilaterally Cardio Jugular venous distension: no JVD Palpation: normal PMI Rate: regular rate Rhythm: regular rhythm Heart sounds: S1 normal heart sound present, S2 normal heart sound present and Other heart sounds present ( S4 present) GI Auscultation: normal bowel sounds Skin General skin exam: no rashes or lesions noted Neuro General: patient oriented x3 and no focal motor deficits Extrem General: Yes no clubbing, cyanosis or edema Psych Appearance: grossly normal Office Procedures EKG Details: EKG shows normal sinus rhythm with normal EKG [id number], Complete Assessment & Plan Assessment & Plan (1) CAD (coronary artery disease): Comment: Nonobstructive CAD with 30% lesion in the LAD and circumflex artery by coronary CTA, February 2021 Code(s): I25.10 - Atherosclerotic heart disease of [place] coronary artery without angina pectoris Plan: Nonobstructive CAD by coronary CTA. Not likely causing her exertional shortness of breath. Advise continue medical therapy with aspirin and statin. LDL is well optimized blood pressure is well optimized encouraged to continue to participate in weight loss program regular physical activity. (2) Hypertension: Code(s): I10 - Essential (primary) hypertension Plan: Hypertension which is currently well optimized on current regimen. Continue the same. She is derived good benefit from good blood pressure control. Importance of good blood pressure control was discussed patient understands agrees. A blood pressure at home was also well managed. Continue low-salt diet. (3) SOB (shortness of breath) on exertion: Code(s): R06.02 - Shortness of breath Plan: Shortness of breath on exertion most likely from physical deconditioning also could be due to underlying pulmonary parenchymal disease. Will obtain a BNP and an echocardiogram to rule out any underlying structural heart issues. This will be performed in near future. If these are within acceptable limits consider PFTs. Will follow up in the clinic in 1 year's time, sooner p.r.n.. Thank you for allowing me to partake in her care Orders: Orders B Type Natriuretic Peptide Today R06.02 - Shortness of breath CA echo transthoracic complete Today R06.02 - Shortness of breath Medications: Changed From acyclovir 200 mg PO QID 20 caps 0RF To acyclovir 200 mg PO QID Coding Level of Care Code Est Pt Level 4 (90928) Diagnoses CAD (coronary artery disease) I25.10 Hypertension I10 SOB (shortness of breath) on exertion R06.02 CPT Codes EKG - CPT: 57541-[id number], Complete ([id number])
== END 2023-08-29 09:20 | disposition home or self-care (01) ==
PROVIDERS: Visit Provider Internal Medicine Cardiovascular Disease
DX: I25.10 Atherosclerotic heart disease of native coronary artery without angina pectoris (principal); I10 Essential (primary) hypertension; R06.02 Shortness of breath
CPT/HCPCS: 93010; 99214

== ENCOUNTER 2023-08-29 08:49 | Outpatient (REF) | payer MEDICARE, SELFPAY ==
[2023-08-29 10:15] LABS: B Type Natriuretic Peptide 89 pg/mL (<100)
== END 2023-08-29 08:50 | disposition home or self-care (01) ==
LOC: HO.LAB 08:49
PROVIDERS: PCP Internal Medicine; Visit Provider Internal Medicine Cardiovascular Disease
DX: I25.10 Atherosclerotic heart disease of native coronary artery without angina pectoris (principal); R06.02 Shortness of breath; I10 Essential (primary) hypertension; Z79.899 Other long term (current) drug therapy
CPT/HCPCS: 36415; 83880; 93005; 99212

== ENCOUNTER → 2023-09-26 09:01 | Outpatient (REF) | payer MEDICARE, SELFPAY ==
--- NOTE | 2023-09-26 09:04 | CA_ITS ---
Transthoracic Echocardiogram Patient (Last, First, Middle): Amelie Chahal, Gender: Female Date of : 1955 Age: 68 Procedure Date: 09/26/2023 Procedure Type: Transthoracic Echocardiogram Location: OP Height: 165. cm Weight: 81.19 kg BSA: 1.89 m2 Heart Rate: 55 bpm BP: 132 / 70 mmHg Skiver Uppers Or Linings: SHALOM Referring MD: Ritesh Sanders MD Symptoms: R06.02 - Shortness of breath Study Quality: Adequate ECG Rhythm: Bradycardia Conclusions: - The left ventricular systolic function is normal. The calculated ejection fraction is 59% by biplane method. - Mild focal hypertrophy of the basal septum. - No obvious valvular pathology seen on this study. - There is mild dilatation of the ascending aorta measuring 3.80 cm. - Small plaque is seen in the sino tubular ridge. Findings Left Ventricle Normal left ventricular cavity size. The left ventricular systolic function is normal. The calculated ejection fraction is 59% by biplane method. There is no evidence of regional wall motion abnormalities. Diastolic function is normal for age. There is mild septal and mild basal asymmetric hypertrophy. Mild focal hypertrophy of the basal septum. (measurement likely inaccurate). LV peak GLS -18.1%. Right Ventricle Normal right ventricular cavity size and systolic function. Atria The left atrium is mildly dilated. The right atrium is normal in size. Aortic Valve There is a normal trileaflet aortic valve. There is no aortic valve stenosis. There is trace (trivial) aortic valve regurgitation. Mitral Valve There is mild mitral annular calcification. There is trace mitral valve regurgitation. There is no mitral valve stenosis. Pulmonic Valve The pulmonic valve is likely normal. Tricuspid Valve There is trace tricuspid valve regurgitation. There is no evidence of pulmonary hypertension. Great Vessels There is mild dilatation of the ascending aorta measuring 3.80 cm. Small plaque is seen in the sino tubular ridge. Venous The inferior vena cava is normal in size and collapses greater than 50% with inspiration. Pericardium/Pleural There is no evidence of pericardial effusion. Prior Study Comparison No significant change compared to prior study dated: 02/23/2021. Recommendations, Care & Conclusions No obvious valvular pathology seen on this study. Measurements 2D Linear Measurements IVSd: 1.70 0.6-0.9/0.6-1.0 cm LVIDd: 3.99 3.9-5.3/4.2-5.9 cm LVIDd Index: 2.11 2.4-3.2/2.2-3.1 cm/m2 LVIDs: 2.47 2.0-3.6 cm LVPWd: 1.12 0.7-1.1 cm LA Diam: 3.50 2.7-3.8/3.0-4.0 cm LAIDs Index: 1.85 1.5-2.3 cm/m2 LV Mass: 262.39 67-162/88-224 g LV Mass Index: 138.83 43-95/49-115 g/m2 LVOT Diam: 2.20 3.0+(-)1.3 cm 2D Systolic Function EF 4C: 63.20 >55% EF 2C: 59.00 >55% EF BiP: 58.80 >55% Mitral Valve MV Pk E: 0.83 MV PK A: 0.75 MV Decel Time: 280.00 E/A: 1.10 E'Lateral: 8.59 E'Medial: 7.07 E/E' Med: 11.80 E/E' Lat: 9.70 PHT: 82.00 MVA PHT: 2.68 Decel Smith: 2.97 Aortic Valve AoV Pk Rodrick: 1.29 AoV Mn Rodrick: 0.83 AoV VTI: 0.28 AoV Pk Grad: 7.00 Aov Mn Grad: 3.00 REJI Cont.VTI: 3.51 AI Pk Rodrick: 3.78 AI Smith: 1.75 LVOT LVOT Pk Rodrick: 1.04 LVOT Mn Rodrick: 0.72 LVOT VTI: 0.26 LVOT Pk Grad: 4.00 LVOT Mn Grad: 2.00 LVOT Diam: 2.20 LVOT Area: 3.80 Diastolic Function MV Pk E: 0.83 MV Pk A: 0.75 E/A: 1.10 E'Medial: 7.07 E/E' Med: 11.80 E' Laterial: 8.59 E/E' Lat: 9.70 Right Ventricle TAPSE (mm): 25.20 TVS' Rodrick: 12.90 Tricuspid Valve TR Pk Rodrick: 2.06 TR Pk Grad: 17.00 Great Vessels Aorta Sinus of Valsalva: 3.50 2.0-3.5 cm Ao Asc: 3.80 2.1-3.4 cm Pulmonary Valve PV Pk Rodrick: 0.79 Peak PV Grad: 2.00 Updated in Other Vendor System with Status of Final Luis Samano MD electronically signed on 09/26/2023 12:20:13 PM with status of Final
== END ==
LOC: HO.CARD 09:01
PROVIDERS: PCP Internal Medicine; Visit Provider Internal Medicine Cardiovascular Disease
DX: R06.02 Shortness of breath (principal)
CPT/HCPCS: 93306; 93356

== ENCOUNTER → 2023-09-26 09:04 | Outpatient (BNV) | payer MEDICARE, SELFPAY | PROVIDERS: PCP Internal Medicine; Visit Provider Internal Medicine | DX: R06.02 Shortness of breath (principal); I71.21 Aneurysm of the ascending aorta, without rupture | CPT/HCPCS: 93306; 93356 ==

== ENCOUNTER 2024-02-20 14:03 | Outpatient (AMB) | payer MEDICARE, SELFPAY ==
--- NOTE | 2024-02-20 14:04 | MHC.PC.OV ---
Intake Visit Reasons: cough/fever Allergies GUY Inhibitors Allergy (Unknown, Verified 02/20/24 14:05) cough lisinopril [LISINOPRIL] Adverse Reaction (Unknown, Verified 02/20/24 14:05) COUGH Medication List - Last Reconciled 02/21/24 by Etienne Page MD acyclovir 200 mg PO QID albuterol sulfate 90 mcg/actuation inhalation ascorbic acid (vitamin C) 500 mg PO DAILY aspirin 81 mg PO DAILY atorvastatin 20 mg PO DAILY azithromycin take 500 mg today (day 1), then 250 mg for 4 days (days 2-5) PO azithromycin take 500 mg today (day 1), then 250 mg for 4 days (days 2-5) PO betamethasone, augmented 0.05 % 1 appl topical BID coenzyme Q10 (Ultra CoQ10) 150 mg PO DAILY desonide 0.05% 1 appl topical BID-QID PRN hydrochlorothiazide 25 mg PO DAILY ketoconazole 2% 1 appl topical 2XW metoprolol succinate ER 12.5 mg (1/2 x 25 mg) PO DAILY 90 days metronidazole 1% 1 appl topical DAILY omega-3 fatty acids (Fish Oil Concentrate) 1,000 mg PO DAILY spironolactone 12.5 mg (1/2 x 25 mg) PO DAILY triamcinolone acetonide 0.5% 1 appl topical DAILY triamcinolone acetonide 0.5% 1 appl topical BID PRN zinc 50 mg PO DAILY Tobacco use date assessed: 08/10/23 Dental Screening Dental Screen Date: 08/10/23 HPI cough/fever HPI Details cough chills and fever for 3 days; says she is covid neg [facility] Medical History Obesity CAD (coronary artery disease) Abnormal nuclear stress test Hyperlipidemia Hypertension Surgical History History of cystocele History of appendectomy History of cystoscopy H/O basal cell carcinoma excision Family History Father No problems noted. Mother Stomach cancer [facility] Alcohol intake: current Alcohol intake frequency: holidays/special occasions only Patient Tobacco Use Status: Never used Tobacco e-Cigarette/Vaping Use: Never Used Second Hand Smoke Exposure: No service: No Current occupational status: employed Current occupational exposures/hazards: No Cognitive needs: No Hearing needs: No Vision needs: Yes Questionnaire Thrive Questionnaire Date Thrive assessed: 08/10/23 UNIQUE-7 AMB Questionnaire UNIQUE-7 Date UNIQUE - 7 assessed: 08/10/23 Source: Developed by Drs. Johann Hernandez, Merary Mcneill, Jesus Pfeiffer and colleagues, with an educational candelario from [employer]. Review of Systems Const Denies headache(s) and Denies weight loss ENT Denies headache(s) Card Denies syncope, Denies irregular heart rhythm and Denies dyspnea Resp Denies chest congestion and Denies dyspnea GI Denies abdominal pain, Denies change in stool character, Denies nausea and Denies vomiting Musc Denies deformity and Denies joint swelling Neuro Denies syncope and Denies headache(s) Physical exam (Primary Care) Tobacco/Smoking Status: Tobacco use Status Tobacco use date assessed 08/10/23 02/20/24 14:06 Patient Tobacco Use Status Never used Tobacco 02/20/24 14:06 e-Cigarette/Vaping Use Never Used 02/20/24 14:06 Thrive Assessment: Date of Thrive Assessment Date Thrive assessed 08/10/23 02/20/24 14:06 Telehealth Telehealth Telehealth Platform: Telephone Location of provider rendering services: practice address Location of patient: other Patient Identification confirmed using: Name, : Yes Telehealth method: voice only Patient verbally consented to treatment: Yes Patient verbally consented to billing insurance company: Yes Patient informed of any privacy concerns related to visit: Yes Minutes spent on Phone/Video with Pt.: 15 (telephone) Assessment and Plan Assessment & Plan (1) Cough: Code(s): R05.9 - Cough, unspecified Plan: recheck covid state; rx snet Medications: Refilled triamcinolone acetonide 0.5% 1 appl topical BID PRN 15 grams 8RF rash azithromycin take 500 mg today (day 1), then 250 mg for 4 days (days 2-5) PO 6 tabs 0RF azithromycin take 500 mg today (day 1), then 250 mg for 4 days (days 2-5) PO 6 tabs 0RF Coding Level of Care Code Tele Est Pt Level 3 (83461) Diagnoses Cough R05.9
== END 2024-02-20 15:00 | disposition home or self-care (01) ==
LOC: HO.HMGH 14:04
PROVIDERS: PCP Internal Medicine; Visit Provider Internal Medicine
DX: R05.9 Cough, unspecified (principal)
CPT/HCPCS: 99442

== ENCOUNTER → 2024-02-22 09:00 | Outpatient (BNV) | payer MEDICARE, SELFPAY | PROVIDERS: PCP Internal Medicine; Visit Provider Internal Medicine | DX: Z12.31 Encounter for screening mammogram for malignant neoplasm of breast (principal) | CPT/HCPCS: 77063; 77067 ==

== ENCOUNTER 2024-02-22 09:02 | Outpatient (REF) | payer MEDICARE, SELFPAY ==
--- NOTE | ~2024-02-22 | MM_ITS ---
EXAMINATION: MM SCREENING DIGITAL BREAST TOMOSYNTHESIS, BILATERAL CLINICAL INFORMATION: Screening. Asymptomatic. COMPARISON: Mammography: This study is compared with prior exams dating back to TECHNIQUE: Digital breast tomosynthesis is performed in both the craniocaudal and mediolateral oblique views along with computer-aided detection (CAD). Synthesized 2D images are generated from the tomosynthesis. FINDINGS: There are scattered areas of fibroglandular density (ACR BI-RADS breast composition Category b). There are no significant masses, abnormal calcifications, or other abnormalities. MM/MM tomosynthesis screening BI IMPRESSION: No mammographic evidence of malignancy. ASSESSMENT: BI-RADS BI-RADS 1 - Negative RECOMMENDATION: Routine annual mammography screening. 1 year F/U This examination should not preclude the clinical evaluation of a suspicious palpable abnormality. This patient's information was entered into a reminder system with a target due date for their next mammogram. Electronically signed by: Kathy Pringle DO 03/21/2024 08:32 PM EDT
== END 2024-02-22 09:03 | disposition home or self-care (01) ==
LOC: HO.MAMMO 09:02
PROVIDERS: PCP Internal Medicine; Visit Provider Internal Medicine
DX: Z12.31 Encounter for screening mammogram for malignant neoplasm of breast (principal)
CPT/HCPCS: 77063; 77067

== ENCOUNTER 2024-02-23 14:01 | Outpatient (AMB) | payer MEDICARE, SELFPAY ==
[2024-02-23 14:02] VITALS: BP 136/82; PULSE 70; O2SAT 96; BMI 29.8
--- NOTE | 2024-02-23 14:02 | MHC.PC.OV ---
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 Accompanied by: Self / Same As Patient Allergies GUY Inhibitors Allergy (Unknown, Verified 02/23/24 14:02) cough lisinopril [LISINOPRIL] Adverse Reaction (Unknown, Verified 02/23/24 14:02) COUGH Medication List - Last Reconciled 02/24/24 by Etienne Page MD albuterol sulfate 90 mcg/actuation inhalation amoxicillin-pot clavulanate 500-125 mg (Augmentin) 1 tab PO BID ascorbic acid (vitamin C) 500 mg PO DAILY aspirin 81 mg PO DAILY atorvastatin 20 mg PO DAILY betamethasone, augmented 0.05 % 1 appl topical BID coenzyme Q10 (Ultra CoQ10) 150 mg PO DAILY hydrochlorothiazide 25 mg PO DAILY ketoconazole 2% 1 appl topical 2XW metoprolol succinate ER 12.5 mg (1/2 x 25 mg) PO DAILY 90 days metronidazole 1% 1 appl topical DAILY omega-3 fatty acids (Fish Oil Concentrate) 1,000 mg PO DAILY spironolactone 12.5 mg (1/2 x 25 mg) PO DAILY triamcinolone acetonide 0.5% 1 appl topical DAILY zinc 50 mg PO DAILY Tobacco use date assessed: 08/10/23 Fall risk assessment: No Falls in past year Last assessed Fall Risk: 02/23/24 Dental Screening Dental Screen Date: 08/10/23 HPI dry cough/meds f/u HPI Details cough for a week; with pneumonia PFSH Medical History Obesity CAD (coronary artery disease) Abnormal nuclear stress test Hyperlipidemia Hypertension Surgical History History of cystocele History of appendectomy History of cystoscopy H/O basal cell carcinoma excision Family History Father No problems noted. Mother Stomach cancer Social History Housing: Condominium Alcohol intake: current Alcohol intake frequency: holidays/special occasions only Patient Tobacco Use Status: Never used Tobacco e-Cigarette/Vaping Use: Never Used Second Hand Smoke Exposure: No service: No Current occupational status: employed Current occupational exposures/hazards: No Cognitive needs: No Hearing needs: No Vision needs: Yes Questionnaire PHQ-9 Over the last 2 weeks, how often have you been bothered by any of the following problems? 1. Little interest or pleasure in doing things: not at all 2. Feeling down, depressed, or hopeless: not at all 3. Trouble falling or staying asleep, or sleeping too much: not at all 4. Feeling tired or having little energy: not at all 5. Poor appetite or overeating: not at all 6. Feeling bad about yourself - or that you are a failure or have let yourself or your family down: not at all 7. Trouble concentrating on things, such as reading the newspaper or watching television: not at all 8. Moving or speaking so slowly that other people could have noticed. Or the opposite - being so fidgety or restless that you have been moving around a lot more than usual: not at all 9. Thoughts that you would be better off or of hurting yourself in some way: not at all Total score: 0 Depression Screening Interpretation: Negative Depression Screening Done: Yes 80545 - PHQ-9 Billing: Yes Source: Developed by Drs. Johann Hernandez, Merary Mcneill, Jesus Pfeiffer and colleagues, with an educational candelario from [employer]. Thrive Questionnaire Date Thrive assessed: 08/10/23 AUDIT C Alcohol Use Questionnaire (AUDIT-C) 1. How often do you have a drink containing alcohol?: Never Total Score: 0 Score Reviewed/Action Taken: Yes UNIQUE-7 AMB Questionnaire UNIQUE-7 Date UNIQUE - 7 assessed: 08/10/23 Source: Developed by Drs. Johann Hernandez, Merary Mcneill, Jesus Pfeiffer and colleagues, with an educational candelario from [employer]. Review of Systems Const Denies chills, Denies headache(s) and Denies weight loss ENT Denies headache(s) Card Denies chest pain, Denies syncope, Denies irregular heart rhythm and Denies dyspnea Resp Denies dyspnea GI Denies abdominal pain, Denies change in stool character, Denies nausea and Denies vomiting Musc Denies deformity and Denies joint swelling Neuro Denies syncope and Denies headache(s) Physical exam (Primary Care) Vital Signs: Last Vital Signs Pulse 70 02/23/24 14:02 BP 136/82 02/23/24 14:02 Pulse Ox 96 02/23/24 14:02 Oxygen Delivery Method Room Air 02/23/24 14:02 BMI result Body Mass Index 29.8 Tobacco/Smoking Status: Tobacco use Status Tobacco use date assessed 08/10/23 02/23/24 14:03 Patient Tobacco Use Status Never used Tobacco 02/23/24 14:03 e-Cigarette/Vaping Use Never Used 02/23/24 14:03 PHQ-9: PHQ-9 Score PHQ-9: Total score 0 02/23/24 14:32 Depression Screening Interpretation: Negative Thrive Assessment: Date of Thrive Assessment Date Thrive assessed 08/10/23 02/23/24 14:03 Assessment and Plan Assessment & Plan (1) Cough: Code(s): R05.9 - Cough, unspecified Plan: rx sent; recheck cxr Orders: Orders XR chest 2V 02/23/24 J18.9 - Pneumonia, unspecified organism Medications: New amoxicillin-pot clavulanate 500-125 mg (Augmentin) 1 tab PO BID 14 tabs 0RF triamcinolone acetonide 0.5% 1 appl topical DAILY 60 grams 3RF Coding Level of Care Code Est Pt Level 3 (37837) Diagnoses Cough R05.9
== END 2024-02-23 14:25 | disposition home or self-care (01) ==
PROVIDERS: PCP Internal Medicine; Visit Provider Internal Medicine
DX: R05.9 Cough, unspecified (principal)
CPT/HCPCS: 99213

== ENCOUNTER 2024-02-28 09:04 | Outpatient (REF) | payer MEDICARE, SELFPAY ==
--- NOTE | ~2024-02-28 | XR_ITS ---
EXAMINATION: XR CHEST CLINICAL INFORMATION: Pneumonia. COMPARISON: Chest radiograph dated 08/19/2022. TECHNIQUE: 2 views of the chest were obtained. FINDINGS: Linear opacity in the right lung apex, unchanged. No new airspace consolidation. No pleural effusion or pneumothorax. Stable cardiomediastinal silhouette. XR/XR chest 2V IMPRESSION: Linear opacity in the right lung apex, unchanged. No new airspace consolidation. Electronically signed by: Ross Reynolds MD 03/19/2024 08:56 PM EDT
== END 2024-02-28 09:05 | disposition home or self-care (01) ==
LOC: HO.XRAY 09:04
PROVIDERS: PCP Internal Medicine; Visit Provider Internal Medicine
DX: J18.9 Pneumonia, unspecified organism (principal)
CPT/HCPCS: 71046

== ENCOUNTER 2024-02-28 09:43 | Outpatient (AMB) | payer MEDICARE, SELFPAY ==
[2024-02-28 09:53] VITALS: BP 134/78; PULSE 79; O2SAT 96; BMI 29.6
--- NOTE | 2024-02-28 09:53 | A.OFFPC_ITS ---
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 Accompanied by: Self / Same As Patient Allergies GUY Inhibitors Allergy (Unknown, Verified 02/28/24 09:54) cough lisinopril [LISINOPRIL] Adverse Reaction (Unknown, Verified 02/28/24 09:54) COUGH Medication List - Last Reconciled 02/28/24 by Etienne Page MD albuterol sulfate 90 mcg/actuation inhalation amoxicillin-pot clavulanate 500-125 mg (Augmentin) 1 tab PO BID ascorbic acid (vitamin C) 500 mg PO DAILY aspirin 81 mg PO DAILY atorvastatin 20 mg PO DAILY betamethasone, augmented 0.05 % 1 appl topical BID coenzyme Q10 (Ultra CoQ10) 150 mg PO DAILY hydrochlorothiazide 25 mg PO DAILY ketoconazole 2% 1 appl topical 2XW methylprednisolone (Medrol (Steven)) PO PER PKG DIR metoprolol succinate ER 12.5 mg (1/2 x 25 mg) PO DAILY 90 days metronidazole 1% 1 appl topical DAILY omega-3 fatty acids (Fish Oil Concentrate) 1,000 mg PO DAILY spironolactone 12.5 mg (1/2 x 25 mg) PO DAILY triamcinolone acetonide 0.5% 1 appl topical DAILY zinc 50 mg PO DAILY Tobacco use date assessed: 08/10/23 Fall risk assessment: No Falls in past year Last assessed Fall Risk: 02/28/24 Dental Screening Dental Screen Date: 08/10/23 HPI shortness of breath HPI Details continues with cough and dyspnea; had repeat cxr this am and not read yet [facility] Medical History Obesity CAD (coronary artery disease) Abnormal nuclear stress test Hyperlipidemia Hypertension Surgical History History of cystocele History of appendectomy History of cystoscopy H/O basal cell carcinoma excision Family History Father No problems noted. Mother Stomach cancer Social History Housing: Condominium Alcohol intake: current Alcohol intake frequency: holidays/special occasions only Patient Tobacco Use Status: Never used Tobacco e-Cigarette/Vaping Use: Never Used Second Hand Smoke Exposure: No service: No Current occupational status: employed Current occupational exposures/hazards: No Cognitive needs: No Hearing needs: No Vision needs: Yes Questionnaire Thrive Questionnaire Date Thrive assessed: 08/10/23 UNIQUE-7 AMB Questionnaire UNIQUE-7 Date UNIQUE - 7 assessed: 08/10/23 Source: Developed by Drs. Johann Hernandez, Merary Mcneill, Jesus Pfeiffer and colleagues, with an educational candelario from [employer]. Review of Systems Const Denies chills, Denies headache(s) and Denies weight loss ENT Denies headache(s) Card Denies chest pain, Denies syncope and Denies irregular heart rhythm Resp Denies chest congestion GI Denies abdominal pain, Denies change in stool character, Denies nausea and Denies vomiting Musc Denies deformity and Denies joint swelling Neuro Denies syncope and Denies headache(s) Physical exam (Primary Care) Vital Signs: Last Vital Signs Pulse 79 02/28/24 09:53 BP 134/78 02/28/24 09:53 Pulse Ox 96 02/28/24 09:53 Oxygen Delivery Method Room Air 02/28/24 09:53 BMI result Body Mass Index 29.6 Tobacco/Smoking Status: Tobacco use Status Tobacco use date assessed 08/10/23 02/28/24 09:57 Patient Tobacco Use Status Never used Tobacco 02/28/24 09:57 e-Cigarette/Vaping Use Never Used 02/28/24 09:57 Thrive Assessment: Date of Thrive Assessment Date Thrive assessed 08/10/23 02/28/24 09:57 Assessment and Plan Assessment & Plan (1) Cough: Code(s): R05.9 - Cough, unspecified Plan: medrol dose steven; uses inhaler; ref pulm Orders: Referrals Pulmonology Referral R05.9 - Cough, unspecified Medications: New methylprednisolone (Medrol (Steven)) PO PER PKG DIR 21 ea 0RF Coding Level of Care Code Est Pt Level 3 (52640) Diagnoses Cough R05.9
== END 2024-02-28 10:09 | disposition home or self-care (01) ==
PROVIDERS: PCP Internal Medicine; Visit Provider Internal Medicine
DX: R05.9 Cough, unspecified (principal)
CPT/HCPCS: 99213

== ENCOUNTER 2024-03-06 09:34 | Outpatient (AMB) | payer MEDICARE, SELFPAY ==
[2024-03-06 09:39] VITALS: BP 128/74; PULSE 58; O2SAT 97; BMI 29.6
--- NOTE | 2024-03-06 09:39 | A.OFFVIS_ITS ---
Vital Signs 03/06/24 09:39 Height 5 ft 5 in Weight 178 lb 2 oz BMI 29.6 BP 128/74 Blood Pressure Location Rt brachial Position Sitting Pulse 58 Pulse Source Pulse Oximeter Pulse Oximetry (%) 97 Oxygen Delivery Method Room Air Intake Visit Reasons: Cough Allergies GUY Inhibitors Allergy (Unknown, Verified 03/06/24 09:41) cough lisinopril [LISINOPRIL] Adverse Reaction (Unknown, Verified 03/06/24 09:41) COUGH HPI HPI Cough: Details: Amelie is a pleasant 68 year old female, former smoker, quit 10 years ago with 20 pack year history, with underlying CAD and HTN. She was referred by PCP for pulmonary evaluation. She reports more noticeable dyspnea on exertion over the last few months and recent URI treated with a zpak then augmentin with almost complete resolution of cough. She continues to report occasional dry cough and chest tightness, which resolves with albuterol. She denies prior h/o asthma. Reports recurrent URI with notable wheezing. She denies seasonal allergies, however with chronic nasal congestion. She denies any pets at home. Denies any pertinent family history. Denies occupational exposures. She reports remote smoking history, prior CXR revealed platelike opacities in the right apex, no chest CT in the past. [facility] Medical History Obesity CAD (coronary artery disease) Abnormal nuclear stress test Hyperlipidemia Hypertension Surgical History History of cystocele History of appendectomy History of cystoscopy H/O basal cell carcinoma excision Family History Father No problems noted. Mother Stomach cancer Social History (Updated 03/06/24 @ 09:41 by Italia Mendez CMA) Housing: Condominium Alcohol intake: current Alcohol intake frequency: holidays/special occasions only Patient Tobacco Use Status: Former Tobacco user e-Cigarette/Vaping Use: Never Used Second Hand Smoke Exposure: No service: No Current occupational status: employed Current occupational exposures/hazards: No Cognitive needs: No Hearing needs: No Vision needs: Yes Review of Systems Const Denies chills, Denies excessive sweating, Denies fever(s), Denies headache(s) and Denies night sweats Eyes Denies dry eyes, Denies irritation and Denies itchy eyes ENT Reports Normal hearing present, Denies headache(s), Denies nasal discharge, Denies post nasal drip and Denies sore throat Card Denies chest pain, Denies chest pain at rest, Denies chest pain with activity, Denies claudication, Denies leg edema, Denies orthopnea and Denies paroxysmal nocturnal dyspnea Resp Denies chest congestion, Denies excessive phlegm production, Denies pain on inspiration, Denies pain with cough, Denies stridor and Denies wheezing Musc Denies myalgias Neuro Reports Normal hearing present and Denies headache(s) Endo Denies excessive sweating Yaya/Lymph Denies lymphadenopathy Aller/Immun Denies itchy eyes, Denies seasonal rhinorrhea and Denies wheezing Physical Exam Vital Signs: Last Vital Signs Pulse 58 03/06/24 09:39 BP 128/74 03/06/24 09:39 Pulse Ox 97 03/06/24 09:39 Oxygen Delivery Method Room Air 03/06/24 09:39 BMI result Body Mass Index 29.6 Const General: cooperative, healthy appearing, comfortable, no acute distress, well developed and alert Orientation/consciousness: patient oriented x3 Limitations: no limitations HEENT Head: Yes normal to inspection, Yes normocephalic and Yes atraumatic Ears: hearing grossly normal bilaterally and external ears normal Eyes General: appearance normal, both eyes and all related structures Eyelids: Yes eyelids normal Sclerae: sclerae normal EOM: EOMs intact bilaterally Neck Neck: Yes normal visual inspection and Yes no lymphadenopathy Lymphatic: no lymphadenopathy noted Chest Chest palpation & inspection: normal inspection of the chest Resp Effort & Inspection: normal respiratory effort, able to speak in complete sentences, no audible wheezes, no cough, no stridor, not tachypneic, no tripod positioning and no use of accessory muscles Auscultation: clear to auscultation bilaterally Cardio Jugular venous distension: no JVD Rate: regular rate Rhythm: regular rhythm Skin Other: warm, dry General skin exam: no rashes or lesions noted Neuro General: patient oriented x3 Cranial nerves: Yes Normal hearing present Cognition (Neuro): normal cognition Gait exam (Neuro): Normal gait present Extrem General: Yes normal to inspection, Yes capillary refill normal, Yes no clubbing, cyanosis or edema and Yes no pedal edema Psych Appearance: grossly normal and well kempt Speech and movement: Normal speech and movement present and Clear speech present Affect: normal affect Attitude: cooperative Thought process: Normal thought process present Thought content: Normal thought content present Insight: Good insight present (Psych) Judgement: Good judgement present (Psych) Assessment & Plan Assessment & Plan (1) Cough: Code(s): R05.9 - Cough, unspecified Category: Medical (2) Dyspnea on exertion: Code(s): R06.09 - Other forms of dyspnea Category: Medical (3) Environmental allergies: Code(s): Z91.09 - Other allergy status, other than to drugs and biological substances Category: Medical Plan Amelie's symptoms may be related to underlying asthma/COPD given smoking history, will send for PFT, as well as RAST to assess for an allergic component. Patient requesting this be sent to [facility]. Will also send for chest CT given prior abnormal CXR, and patient noted occasional pleuritic discomfort on the right. We discussed trialing a daily inhaler however pt would like to hold off at this time. All questions were answered and patient is in agreement of plan. Will follow up to review results or sooner if needed. Orders: Orders Complete Blood Count Auto Diff Today R05.9 - Cough, unspecified Immunoglobulin E Today Z91.09 - Other allergy status, other than to drugs and biological substances Resp Allergy Profile Region I Today Z91.09 - Other allergy status, other than to drugs and biological substances PFT pulmonary function test Today CT chest wo IV con Today R05.9 - Cough, unspecified, Z87.891 - Personal history of nicotine dependence Coding Level of Care Code New Pt Level 4 (90421) Diagnoses Cough R05.9 Dyspnea on exertion R06.09 Environmental allergies Z91.09
== END 2024-03-06 10:14 | disposition home or self-care (01) ==
PROVIDERS: PCP Internal Medicine; Referring Provider Internal Medicine; Visit Provider Nurse Practitioner Family
DX: R05.9 Cough, unspecified (principal); R06.09 Other forms of dyspnea; Z91.09 Other allergy status, other than to drugs and biological substances
CPT/HCPCS: 99204; 99214

== ENCOUNTER → 2024-03-06 09:34 | Outpatient (BNVA) | payer MEDICARE, SELFPAY | PROVIDERS: PCP Internal Medicine; Referring Provider Internal Medicine; Visit Provider Nurse Practitioner Family | DX: Z13.89 Encounter for screening for other disorder (principal) | CPT/HCPCS: 99202 ==

== ENCOUNTER 2024-03-06 10:27 | Outpatient (REF) | payer MEDICARE, SELFPAY ==
[2024-03-06 14:41] LABS: MANUAL DIFF FLAG NO
[2024-03-06 14:53] LABS: Basophils Percent Auto 0.5 % (0-2); Eosinophils Absolute Auto 0.1 X10*3/uL (0.0-0.4); Eosinophils Percent Auto 1.6 % (0-4); Hematocrit 41.4 % (37.0-47.0); Hemoglobin 13.7 g/dl (12.0-16.0); Imm Gran Abs Auto 0.02 X10*3/uL (0.00-0.03); Imm Gran Pct Auto 0.4 % (0.0-0.4); Lymphocytes Absolute Auto 1.3 X10*3/uL (1.2-4.9); Lymphocytes Percent Auto 23.1 % (20-40); Mean Corpuscular HGB Conc 33.1 g/dl (31.0-35.0); Mean Corpuscular Hemoglobin 28.1 pg (27.0-33.0); Mean Corpuscular Volume 84.8 fL (80.0-98.0); Mean Platelet Volume 9.6 fL (9.4-12.3); Monocytes Absolute Auto 0.6 X10*3/uL (0.1-1.2); Monocytes Percent Auto 10.8 % (2-11); Neutrophils Absolute Auto 3.6 x10*3/uL (2.0-8.3); Neutrophils Percent Auto 63.6 % (45-73); Platelet Count 267 X10*3/uL (160-400); Red Blood Count 4.88 X10*6/uL (4.20-5.50); Red Cell Distribution Width 12.8 % (11.0-16.0); White Blood Count 5.6 X10*3/uL (4.8-10.8)
[2024-03-12 18:58] LABS: Class Alternaria alternata 0; Class Aspergillus fumigatus 0; Class Bermuda Grass 0; Class Birch 0; Class Cat Dander 0; Class Cladosporium herbarum 0; Class Cockroach 0; Class Common Ragweed 0; Class Cottonwood 0; Class Derm. pterony 0; Class Dermatophagoides farinae 0; Class Dog Dander 0; Class Elm 0; Class Maple Box Elder 0; Class Mountain Cedar 0; Class Mouse Urine Protein 0; Class Mugwort 0; Class Oak 0; Class Penicillium crysogenum 0; Class Rough Pigweed 0; Class Sheep Sorrel 0; Class Sycamore 0; Class Timothy Grass 0; Class Walnut Tree 0; Class White Ash 0; Class White Mulberry 0; D001 IgE D pteronyssinus <0.10 kU/L; D002 - IgE D farinae <0.10 kU/L; E001 - IgE Cat Dander <0.10 kU/L; E005 - IgE Dog Dander <0.10 kU/L; E072-IgE Mouse Urine <0.10 kU/L; G002 IgE Bermuda Grass <0.10 kU/L; G006 - IgE Timothy Grass <0.10 kU/L; I006-IgE Cockroach, German <0.10 kU/L; Immunoglobulin E 10 kU/L (<OR=114); M001 IgE Penicillium chrysogen <0.10 kU/L; M002 - IgE Cladosporium herbar <0.10 kU/L; M003 - IgE Aspergillus fumigat <0.10 kU/L; M006 - IgE Alternaria alternat <0.10 kU/L; T001 IgE Maple/Box Elder <0.10 kU/L; T003 IgE Common Silver Birch <0.10 kU/L; T006 - IgE Cedar, Mountain <0.10 kU/L; T007 - IgE Oak, White <0.10 kU/L; T008 IgE Elm, American <0.10 kU/L; T010 - IgE Walnut <0.10 kU/L; T011 - IgE Maple Leaf Sycamore <0.10 kU/L; T014 - IgE Cottonwood <0.10 kU/L; T015 - IgE Ash, White <0.10 kU/L; T070 - IgE White Mulberry <0.10 kU/L; W001 - IgE Ragweed, Short <0.10 kU/L; W006 - IgE Mugwort <0.10 kU/L; W014 IgE Pigweed, Common <0.10 kU/L; W018 IgE Sheep Sorrel <0.10 kU/L
== END 2024-03-06 10:28 | disposition home or self-care (01) ==
LOC: HO.WFDLDS 10:27
PROVIDERS: Visit Provider Nurse Practitioner Family
DX: Z91.09 Other allergy status, other than to drugs and biological substances (principal); R05.9 Cough, unspecified; R06.09 Other forms of dyspnea
CPT/HCPCS: 36415; 82785; 85025; 86003; 99202

== ENCOUNTER 2024-04-04 08:01 | Day surgery (SDC) | payer MEDICARE, SELFPAY ==
[2024-04-02 15:07] VITALS: BMI 31.1
--- NOTE | 2024-04-03 10:01 | P.CONAN_ITS ---
Documented by User: Angy King NP 04/03/24 10:03 HPI - Anesthesia Eval Consult details Narrative: 68yo F for Colonoscopy, Upper Endoscopy with Balloon Dilitation Nonobstructive CAD. Follows [facility] cardiology [facility] Active Problems Active Problems: All Active Problems Personal history of tobacco use (Acute) Dyspnea on exertion (Acute) Environmental allergies (Acute) Chest pressure (Acute) Cough (Acute) Upper respiratory tract infection (Acute) Physical exam (Acute) Obesity (Acute) CAD (coronary artery disease) (Acute) Hyperlipidemia (Acute) Hypertension (Acute) Past Medical History Medical History Psoriasis GERD (gastroesophageal reflux disease) Obesity CAD (coronary artery disease) Hyperlipidemia Hypertension Family History Family History Father No problems noted. Mother Stomach cancer Surgical History Surgical History History of cystocele History of appendectomy History of cystoscopy H/O basal cell carcinoma excision Social History [facility] Alcohol intake: current Alcohol intake frequency: holidays/special occasions only Patient Tobacco Use Status: Former Tobacco user e-Cigarette/Vaping Use: Never Used Second Hand Smoke Exposure: No Use of substances other than those prescribed or required for medical reasons: No Are you DNR?: No Advance Directives: No Advance Directives Information Provided: Yes service: No Current occupational status: employed Current occupational exposures/hazards: No Cognitive needs: No Hearing needs: No Vision needs: Yes Meds Allergies Allergy/AdvReac Type Severity Reaction Status Date / Time GUY Inhibitors Allergy Intermediate cough Verified 04/04/24 08:36 Home Medications ?Medication ?Instructions ?Recorded ?Confirmed ?Last Taken ?Type ascorbic acid (vitamin C) 1,000 mg 500 mg PO DAILY 06/26/20 02/28/24 Unknown History tablet omega-3 fatty acids 1,000 mg 1,000 mg PO DAILY 06/26/20 02/28/24 03/28/24 History capsule (Fish Oil Concentrate) coenzyme Q10 75 mg capsule (Ultra 150 mg PO DAILY 01/08/21 02/28/24 Unknown History CoQ10) zinc 50 mg tablet 50 mg PO DAILY 01/08/21 02/28/24 Unknown History betamethasone, augmented 0.05 % 1 appl topical BID 10/28/21 02/28/24 Unknown History topical ointment albuterol sulfate 90 mcg/actuation inhalation 02/20/24 02/28/24 04/04/24 07:45 History aerosol inhaler Exam Height,Weight and Vital Signs: Height 5 ft 5 in Weight 84.822 kg Narrative Narrative: EKG normal sinus rhythm with normal EKG ECHO 09/2023 Conclusions: - The left ventricular systolic function is normal. The calculated ejection fraction is 59% by biplane method. - Mild focal hypertrophy of the basal septum. - No obvious valvular pathology seen on this study. - There is mild dilatation of the ascending aorta measuring 3.80 cm. - Small plaque is seen in the sino tubular ridge. Assessment and Plan Assessment Anesthesia Assessment: Chart Reviewed Documented by User: Krystal Zabala MD 04/04/24 10:25 PMFSH Past Medical History Medical History Psoriasis GERD (gastroesophageal reflux disease) Obesity CAD (coronary artery disease) Hyperlipidemia Hypertension Family History Family History Father No problems noted. Mother Stomach cancer Family history of problems with anesthesia: No Surgical History Surgical History History of cystocele History of appendectomy History of cystoscopy H/O basal cell carcinoma excision History of Problems with Anesthesia: No Social History [facility] Alcohol intake: current Alcohol intake frequency: holidays/special occasions only Patient Tobacco Use Status: Former Tobacco user e-Cigarette/Vaping Use: Never Used Second Hand Smoke Exposure: No Use of substances other than those prescribed or required for medical reasons: No Are you DNR?: No Advance Directives: No Advance Directives Information Provided: Yes service: No Current occupational status: employed Current occupational exposures/hazards: No Cognitive needs: No Hearing needs: No Vision needs: Yes Meds Allergies Allergy/AdvReac Type Severity Reaction Status Date / Time GUY Inhibitors Allergy Intermediate cough Verified 04/04/24 08:36 Home Medications ?Medication ?Instructions ?Recorded ?Confirmed ?Last Taken ?Type ascorbic acid (vitamin C) 1,000 mg 500 mg PO DAILY 06/26/20 02/28/24 Unknown History tablet omega-3 fatty acids 1,000 mg 1,000 mg PO DAILY 06/26/20 02/28/24 03/28/24 History capsule (Fish Oil Concentrate) coenzyme Q10 75 mg capsule (Ultra 150 mg PO DAILY 01/08/21 02/28/24 Unknown History CoQ10) zinc 50 mg tablet 50 mg PO DAILY 01/08/21 02/28/24 Unknown History betamethasone, augmented 0.05 % 1 appl topical BID 10/28/21 02/28/24 Unknown History topical ointment albuterol sulfate 90 mcg/actuation inhalation 02/20/24 02/28/24 04/04/24 07:45 History aerosol inhaler Exam Airway Mallampati Class: II TM Dist: >3cm Neck ROM: Full Heart: rrr Lungs: cta Assessment and Plan Assessment Anesthesia Assessment: Anesthesia Plan Discussed Final Anesthetic Review Family History of Problems with Anesthesia: No History of Problems with Anesthesia: No NPO: Yes ASA Class: III Final Preanesthetic Review: No Changes in Pt Med Stat, Meds/Allgs Chart Reviewed, Consent Obtained/Reviewed and Anes Risks/Benef Reviewed Patient Risk: Intermediate Procedure Risk: Low Anesthetic Plan Anesthetic Plan: MAC: Disposition: Standard PACU
[2024-04-04 08:37] VITALS: BMI 29.6
[2024-04-04 08:43] VITALS: BP 143/71; PULSE 63; RESP 16; TEMP 36.4; O2SAT 98
[2024-04-04] MEDS: Lactated Ringers 1,000 ML 100 ML IVCONT (09:08)
[2024-04-04 11:11] VITALS: BP 98/58; PULSE 65; RESP 16; TEMP 36.1; O2SAT 95
--- NOTE | 2024-04-04 11:14 | PM.OP ---
Brief Operative Note Date of Service: 04/04/24 Pre-op diagnosis: Dysphagia, Screening Post-op diagnosis: other (Hiatal hernia, Esophageal ring, Diverticulosis) Procedure: EGD with Balloon Dilation from 18mm to 19mm to 20mm and biopsies, and Colonoscopy to the cecum Surgeon: Johann Candelario MD Anesthesia: MAC Was an Environment Coordinator used for this Procedure?: No Estimated blood loss (mL): 2.0 Pathology: other (A. EG Junction at 35cm B. Esophagus 20 to 25cm) Condition: stable Disposition: PACU
[2024-04-04 11:26] VITALS: BP 158/80; PULSE 64; RESP 17; TEMP 36.8; O2SAT 100
--- NOTE | 2024-04-04 11:38 | OP_ITS ---
DATE OF SERVICE: 04/04/2024 SURGEON: Johann Candelario MD INDICATIONS: The patient presents for evaluation of intermittent dysphagia and colorectal cancer screening. Full consent has been obtained from her for this, including risks of bleeding and perforation. PREOPERATIVE DIAGNOSIS: POSTOPERATIVE DIAGNOSIS: PROCEDURE PERFORMED: ESTIMATED BLOOD LOSS: COMPLICATIONS: ANESTHESIA: Monitored anesthesia care. ASSISTANTS: SPECIMENS: PREOPERATIVE DIAGNOSES: Dysphagia and colorectal cancer screening. POSTOPERATIVE DIAGNOSES: Dysphagia and colorectal cancer screening, nonobstructing distal esophageal ring, small hiatal hernia, rule out eosinophilic esophagitis, diverticulosis, internal hemorrhoids. PROCEDURES PERFORMED: Esophagogastroduodenoscopy with balloon dilation of gastroesophageal junction and biopsies. Colonoscopy to the cecum. DESCRIPTION OF PROCEDURE: The patient was placed in the left lateral decubitus position. The Olympus video gastroscope was passed in the posterior oropharynx and upper esophagus under direct vision. The scope was passed slowly into the distal esophagus. The gastroesophageal junction appeared at 35 cm. At this level was what appeared to be a fibrotic nonobstructing esophageal ring. There was no stricture, mass, nor esophagitis. There was no gross evidence of Landis mucosa. The scope easily passed this into a small hiatal hernia. The scope was advanced to the pylorus and the duodenum was cannulated in the descending portion. The duodenum including the bulb appeared normal without mass or ulceration. The scope was withdrawn back to the stomach. The gastric antrum and body appeared normal with good peristalsis. The scope was retroflexed visualizing the proximal stomach carefully, which appeared normal, without any sign of mass or ulceration. Scope was straightened and withdrawn back to the esophagus. I did use a [employer] incremental balloon to dilate the gastroesophageal junction and distal esophageal ring from 18 mm to 19 mm to 20 mm at the recommended pressure for between 30 and 60 seconds each. Post dilation there was no appreciable heme, nor any disruption of the EG junction nor ring. I did obtain multiple biopsies at the EG junction, at 35 cm. Proximal to this, the esophageal mucosa appeared normal. The proximal esophagus appeared normal without any sign of rings, but I did obtain biopsies between 20 and 25 cm to rule out eosinophilic esophagitis. The scope was withdrawn from the patient. She was turned around for the colonoscopy. The digital rectal exam revealed no abnormalities. The Olympus video pediatric colonoscope was entered into the rectum, advanced easily to the cecum. Once in the cecum, I did identify normal-appearing cecal pouch with appendiceal orifice and a normal-appearing ileocecal valve. There was transillumination of light deep in the right lower quadrant. The entire cecum and ileocecal valve appeared normal. The scope was slowly withdrawn assessing all mucosal surfaces carefully. Preparation was excellent. I did not visualize any sign of polyps, colitis, nor angiodysplasia. There was a mild amount of sigmoid diverticulosis. In the rectum, scope was retroflexed visualizing internal hemorrhoids, but no other pathology. The rectal mucosa appeared normal. The scope was straightened and withdrawn from the patient. She tolerated the procedure well and was returned to the recovery area in stable condition. IMPRESSION: 1. Hiatal hernia. 2. Nonobstructing distal esophageal ring, status post balloon dilation. 3. Rule out eosinophilic esophagitis. 4. Diverticulosis. 5. Internal hemorrhoids. PLAN: The results of the pathology will be checked. Given the negative colonoscopy, her age, and no family history of colon cancer, I do not think she will need any further screening colonoscopies. At this point, she reports that she has not been having much in the way of any heartburn and therefore, I do not think she has to be on any chronic acid suppression. I did advise to use any dtbl-zvz-cdntzky medication such as Prilosec or an H2 lawanda as needed for reflux. If her dysphagia persists, I would recommend a trial of a PPI daily for at least a month or 2 to see if that would help in the event she is having some reflux and esophageal spasm. She was advised not to use any aspirin or NSAIDs for 1 week. MD CHRISTOPHER Oliveira/TIM / [phone]
== END 2024-04-04 11:50 | disposition home or self-care (01) ==
PROVIDERS: PCP Internal Medicine; Visit Provider Internal Medicine
PROC: 0DJD8ZZ Inspection of Lower Intestinal Tract, Via Natural or Artificial Opening Endoscopic (ICD-10-PCS; CPT 45378; principal; 2024-04-04 09:20)
PROC: (CPT 43249; 2024-04-04 09:20)
DX: K22.2 Esophageal obstruction (principal); K44.9 Diaphragmatic hernia without obstruction or gangrene; R13.10 Dysphagia, unspecified; K21.9 Gastro-esophageal reflux disease without esophagitis; Z12.11 Encounter for screening for malignant neoplasm of colon; K57.30 Diverticulosis of large intestine without perforation or abscess without bleeding; K64.8 Other hemorrhoids; I10 Essential (primary) hypertension; E78.00 Pure hypercholesterolemia, unspecified; Z79.82 Long term (current) use of aspirin; Z79.02 Long term (current) use of antithrombotics/antiplatelets; Z79.899 Other long term (current) drug therapy
CPT/HCPCS: 43249; 43239; G0121; 88305; 88313; C1726; J1100; J1596; J2003; J2704

== ENCOUNTER 2024-04-09 15:17 | Outpatient (REF) | payer MEDICARE, SELFPAY ==
--- NOTE | ~2024-04-09 | CT_ITS ---
EXAMINATION: CT CHEST WITHOUT CONTRAST CLINICAL INFORMATION: Cough. COMPARISON: None available. TECHNIQUE: Multidetector volumetric CT imaging of the chest was done. Axial MIP volume rendering provided. Sagittal and coronal reformatted images were obtained. This CT examination was performed using dose optimization techniques as appropriate, variously including the following: *Automated exposure control *Adjustment of mA and/or kV according to patient size (this includes techniques or standardized protocols for targeted exams where dose is matched to indication/reason for exam; i.e. extremities or head) *Use of iterative reconstruction technique DLP: 165 mGy-cm FINDINGS: Submitted for interpretation on June 08, 2024. There are multiple, scattered, less than 2 mm noncalcified pulmonary nodules in the right lung with a round on distribution. There is a 5 mm low densities subpleural nodule above the right hemidiaphragm in the right lung base. Linear attenuation abnormality is an volume loss in the right lung apex/apical segment right upper lobe. No bronchiectasis. No honeycombing. No pleural effusion. No pneumothorax. No gross airspace disease/consolidation. No lymphadenopathy, mediastinum. Trace pericardial effusion. Calcified plaques in the thoracic aortic arch its main branches and the coronary arteries. No aneurysm in the thoracic aorta. Multifocal less than 1 cm low density lesions in the liver parenchyma. Gallbladder is contracted. Multilevel spondylosis more conspicuous at the C6-7, T8-9 and to a lesser extent T9-10. S-shaped curvature of the cervical thoracic junction.. CT/CT chest wo IV con IMPRESSION: Multiple, nonspecific, less than 2 mm noncalcified pulmonary nodules, right lung. Probable scarring, apical segment right upper lobe. Multilevel spondylosis and cervical thoracic scoliosis. Multifocal hypodensities, hepatic. Fleischner guidelines were followed. Electronically signed by: Chaparro Alcala MD 06/08/2024 03:36 PM EST
== END 2024-04-09 15:18 | disposition home or self-care (01) ==
LOC: HO.CT 15:17
PROVIDERS: PCP Internal Medicine; Visit Provider Nurse Practitioner Family
DX: R05.9 Cough, unspecified (principal); Z87.891 Personal history of nicotine dependence
CPT/HCPCS: 71250

== ENCOUNTER → 2024-04-09 15:18 | Outpatient (BNV) | payer MEDICARE, SELFPAY | PROVIDERS: PCP Internal Medicine; Visit Provider Radiology Diagnostic Radiology | DX: R05.9 Cough, unspecified (principal) | CPT/HCPCS: 71250 ==

== ENCOUNTER → 2024-04-20 09:43 | Outpatient (BNVA) | payer MEDICARE, SELFPAY | PROVIDERS: PCP Internal Medicine; Visit Provider Nurse Practitioner Family ==

== ENCOUNTER 2024-08-13 08:50 | Outpatient (AMB) | payer MEDICARE, SELFPAY ==
--- NOTE | 2024-08-13 08:58 | MHC.PC.OV ---
Vital Signs 08/13/24 09:00 Height 5 ft 5 in Weight 179 lb BMI 29.8 BP 130/72 Blood Pressure Location Lt brachial Position Sitting Pulse 60 Pulse Source Pulse Oximeter Temp 96.9 F Temp Source Skin Pulse Oximetry (%) 97 Oxygen Delivery Method Room Air Intake Visit Reasons: Annual Exam Intake Note: Patient is here today for a physical. Authorization Representative Required: No Fuel Dock Attendant: Not Required per policy Accompanied by: Self / Same As Patient Allergies GUY Inhibitors Allergy (Intermediate, Verified 08/13/24 08:59) cough Medication List - Last Reconciled 08/13/24 by Etienne Page MD albuterol sulfate 90 mcg/actuation inhalation ascorbic acid (vitamin C) 500 mg PO DAILY aspirin 81 mg PO DAILY atorvastatin 20 mg PO DAILY coenzyme Q10 (Ultra CoQ10) 150 mg PO DAILY hydrochlorothiazide 25 mg PO DAILY ketoconazole 2% 1 appl topical 2XW metoprolol succinate ER 12.5 mg (1/2 x 25 mg) PO DAILY omega-3 fatty acids (Fish Oil Concentrate) 1,000 mg PO DAILY spironolactone 12.5 mg (1/2 x 25 mg) PO DAILY triamcinolone acetonide 0.5% 1 appl topical DAILY zinc 50 mg PO DAILY Tobacco use date assessed: 08/13/24 Fall risk assessment: 1 Fall in past year (two weeks ago) Last assessed Fall Risk: 08/13/24 Dental Screening Dental Screen Date: 08/13/24 Did you have a dental visit in the last 12 months?: Yes Did you have a dental problem in the last 6 months where you did not have access to dental care?: No Was dental information given to patient?: Patient has dentist HPI Annual Exam HPI Details asthma hyperlipidemia and HTN; stable; doing well on rx; compliant [facility] Medical History Psoriasis GERD (gastroesophageal reflux disease) Obesity CAD (coronary artery disease) Hyperlipidemia Hypertension Surgical History History of cystocele History of appendectomy History of cystoscopy H/O basal cell carcinoma excision Family History (Updated 08/13/24 @ 08:59 by ADY Briggs) Father No problems noted. Mother Stomach cancer Social History Housing: Condominium Alcohol intake: current Alcohol intake frequency: holidays/special occasions only Patient Tobacco Use Status: Former Tobacco user e-Cigarette/Vaping Use: Never Used Second Hand Smoke Exposure: Yes service: No Current occupational status: employed Current occupational exposures/hazards: No Cognitive needs: No Hearing needs: No Vision needs: Yes Questionnaire PHQ-9 Over the last 2 weeks, how often have you been bothered by any of the following problems? 1. Little interest or pleasure in doing things: nearly every day 2. Feeling down, depressed, or hopeless: not at all 3. Trouble falling or staying asleep, or sleeping too much: not at all 4. Feeling tired or having little energy: more than half the days 5. Poor appetite or overeating: several days 6. Feeling bad about yourself - or that you are a failure or have let yourself or your family down: not at all 7. Trouble concentrating on things, such as reading the newspaper or watching television: not at all 8. Moving or speaking so slowly that other people could have noticed. Or the opposite - being so fidgety or restless that you have been moving around a lot more than usual: not at all 9. Thoughts that you would be better off or of hurting yourself in some way: not at all Total score: 6 Depression Screening Interpretation: Positive Depression Screening Done: Yes Source: Developed by Drs. Johann Hernandez, Merary Mcneill, Jesus Pfeiffer and colleagues, with an educational candelario from [employer]. Thrive Questionnaire Date Thrive assessed: 08/13/24 I am a: Patient What is your living situation today?: I have a steady place to live Within the past 12 months, did the food you bought not last and you didn't have the money to get more?: Sometimes True Within the past 12 months, did you worry whether your food would run out before you got money to buy more?: Never true Do you have trouble paying for medicines?: No Do you have trouble getting transportation to medical appointments?: No Do you have trouble paying your heating and electricity bill?: No Do you have trouble taking care of your child, family member or friend?: No Do you have trouble with day-to-day activities such as bathing, preparing meals, shopping, managing finances, etc.?: No Are you currently unemployed and looking for a job?: No Are you interested in more education?: No Please select the resources that you would like help with: None Currently or been in a relationship where the following occur: No concerns reported THRIVE Score: 1 AUDIT C Alcohol Use Questionnaire (AUDIT-C) 1. How often do you have a drink containing alcohol?: Monthly or less 2. How many drinks containing alcohol do you have on a typical day when you are drinking?: 1 or 2 3. How often do you have six or more drinks on one occasion?: Never Total Score: 1 UNIQUE-7 AMB Questionnaire UNIQUE-7 Date UNIQUE - 7 assessed: 08/13/24 Feeling nervous, anxious, or on edge: 0 = Not at all Not being able to stop or control worryin = Not at all Worrying too much about different things: 0 = Not at all Trouble relaxin = Not at all Being so restless that it is hard to sit still: 0 = Not at all Becoming easily annoyed or irritable: 0 = Not at all Feeling afraid as if something awful might happen: 0 = Not at all Total UNIQUE-7 score (0-4 normal; 5-9 mild; 10-14 moderate; 15-21 severe): 0 Source: Developed by Drs. Johann Hernandez, Merary Mcneill, Jesus Pfeiffer and colleagues, with an educational candelario from [employer]. Review of Systems Const Denies chills, Denies fatigue, Denies headache(s) and Denies weight loss Eyes Denies change in vision, Denies diplopia and Denies eye pain ENT Denies vertigo, Denies dizziness, Denies headache(s) and Denies nasal discharge Card Denies chest pain, Denies rapid heart rate and Denies dyspnea on exertion Resp Denies chest congestion, Denies cough, Denies pain with cough and Denies dyspnea on exertion GI Denies abdominal pain, Denies hematochezia and Denies change in bowel habits Musc Denies myalgias, Denies arthralgias and Denies joint swelling Skin/Breast Denies lesions and Denies unusual bruising Neuro Denies vertigo, Denies dizziness, Denies headache(s) and Denies focal weakness Endo Denies fatigue Physical exam (Primary Care) Vital Signs: Last Vital Signs Temp 96.9 F 08/13/24 09:00 Pulse 60 08/13/24 09:00 BP 130/72 08/13/24 09:00 Pulse Ox 97 08/13/24 09:00 Oxygen Delivery Method Room Air 08/13/24 09:00 BMI result Body Mass Index 29.8 Tobacco/Smoking Status: Tobacco use Status Tobacco use date assessed 08/13/24 08/13/24 09:05 Patient Tobacco Use Status Former Tobacco user 08/13/24 09:05 e-Cigarette/Vaping Use Never Used 08/13/24 09:05 PHQ-9: PHQ-9 Score PHQ-9: Total score 6 08/13/24 09:05 Depression Screening Interpretation: Positive Thrive Assessment: Date of Thrive Assessment Date Thrive assessed 08/13/24 08/13/24 09:05 Currently or been in a relationship where the following occur: No concerns reported Const General: cooperative, healthy appearing and no acute distress Orientation/consciousness: oriented to person, oriented to place and oriented to time HENMT Head: Yes normal to inspection, Yes normocephalic and Yes atraumatic Mouth: Normal oral and palatal mucosa present and tongue normal Throat: Yes posterior oropharynx normal and Yes uvula midline Eyes General: appearance normal, both eyes and all related structures Neck Neck: Yes normal visual inspection, Yes full ROM and Yes no lymphadenopathy Thyroid: Thyroid normal Carotids: normal carotid upstroke Chest Chest palpation & inspection: normal inspection of the chest Resp Effort & Inspection: normal respiratory effort and able to speak in complete sentences Auscultation: clear to auscultation bilaterally Cardio Jugular venous distension: no JVD Palpation: normal PMI Rate: regular rate Rhythm: regular rhythm Heart sounds: S1 normal heart sound present and S2 normal heart sound present GI Inspection: Yes normal to inspection Palpation (GI): Soft to palpation and No hepatosplenomegaly present Auscultation: normal bowel sounds General: Yes no CVA tenderness Back/Spine/Pelvis Back: no CVA tenderness Skin General skin exam: no rashes or lesions noted Neuro General: oriented to person, oriented to place and oriented to time Extrem General: Yes normal to inspection and Yes full ROM Coding Level of Care Code Est Pt Prev Care >65y(75623) Diagnoses Physical exam Z00.00 Hyperlipidemia E78.5 Hypertension I10 Assessment & Plan Assessment & Plan (1) Physical exam: Code(s): Z00.00 - Encounter for general adult medical examination without abnormal findings Category: Medical Plan: stable; do labs (2) Hyperlipidemia: Code(s): E78.5 - Hyperlipidemia, unspecified Category: Medical Plan: stable; same rx (3) Hypertension: Code(s): I10 - Essential (primary) hypertension Category: Medical Plan: stable; same rx Orders: Orders Lipid Panel Today Z13.220 - Encounter for screening for lipoid disorders Thyroid Stimulating Hormone Today Z13.29 - Encounter for screening for other suspected endocrine disorder Complete Blood Count Auto Diff Today Z13.0 - Encounter for screening for diseases of the blood and blood-forming organs and certain disorders involving the immune mechanism Comprehensive [place]son. Panel Fast Today Z13.9 - Encounter for screening, unspecified
[2024-08-13 09:00] VITALS: BP 130/72; PULSE 60; TEMP 36.1; O2SAT 97; BMI 29.8
== END 2024-08-13 09:22 | disposition home or self-care (01) ==
PROVIDERS: PCP Internal Medicine; Visit Provider Internal Medicine
DX: Z00.00 Encounter for general adult medical examination without abnormal findings (principal); E78.5 Hyperlipidemia, unspecified; I10 Essential (primary) hypertension

== ENCOUNTER → 2024-08-13 08:50 | Outpatient (BNVA) | payer MEDICARE, SELFPAY | PROVIDERS: PCP Internal Medicine; Visit Provider Internal Medicine | DX: Z00.00 Encounter for general adult medical examination without abnormal findings (principal); E78.5 Hyperlipidemia, unspecified; I10 Essential (primary) hypertension | CPT/HCPCS: 99397 ==

== ENCOUNTER 2024-08-23 09:02 | Outpatient (REF) | payer MEDICARE, SELFPAY ==
[2024-08-23 09:11] LABS: MANUAL DIFF FLAG NO
--- OUTSIDE RECORDS SUMMARY | 2024-08-23 09:38 | XMS_ITS ---
Author Organization [facility] Address [address] [place] [address] Care Team Providers Care Foil Operator Name Role Phone Etienne Page MD Primary Care Provider Johann Green Unavailable [phone] ALLERGIES Allergen (clinical drug ingredient) Drug/Non Drug Allergy documented on EMR Reaction Allergy Type Onset Date Status lisinopril Lisinopril Unknown Drug Allergy Activ e REASON FOR VISIT Patient presents today for a COLON SCREENING MEDICATIONS Medication SIG (Take, Route, Frequency, Duration) Notes Start Date End Date Status Atorvastatin Calcium 20 MG TAKE 1 TABLET BY MOUTH DAILY Oral for 90 Active Spironolactone 25 MG Oral for 90 Active Metoprolol Succinate ER 25 MG Oral for 90 Active hydroCHLOROthiazide 25 MG Oral for 90 Active Triamcinolone Acetonide 0.5 % External for 30 Active Aspirin Adult Low Dose 81 MG 1 tablet Or ally Once a day for 30 day(s) Active Biotin Active Co Q 10 Active SOCIAL HISTORY Tobacco Use: Social History Observation Description Date Details (start date - stop date) Former Smoker NA - NA Sex Assigned At : Social History Observation Description Sex Assigned At Unknown Tobacco Use/Smoking Question Answer Notes Patient is a former smoker How long has it been since you last smoked? > 10 years Alcohol Screen Question Answer Notes Did you have a drink contain ing alcohol in the past year? Yes How often did you have a dri nk containing alcohol in the past year? Monthly or less (1 point) How many drinks did you have on a typical day when you were drinking in the past year? 1 or 2 drinks (0 point) How often did you have 6 or more drinks on one occasion in the past year? Never (0 point) Points 1 Interpretation Negative PROBLEMS Problem Type ICD Code Onset Dates Problem Status W/U Status Risk SNOMED Code Notes Problem Colon cancer screening (Z12.11) Active confirmed Colon cancer screening (188022539) Problem GERD (gastroesopha geal reflux disease) (K21.9) Active confirmed Gastroesophagea l reflux disease (055504688) Problem Dysphagia (R13.10) Active confirmed Dysphagia (16219808) Encounters Encounter Location Date Provider Diagnosis [facility] [address] [place] [address] 12/14/2023 Johann Candelario Colon cancer screening Z12.11 ; Dysphagia R13.10 and GERD (gastroesophageal reflux disease) K21.9 ASSESSMENTS Encounter Date Diagnosis Assessment Notes Treatment Notes Treatment Clinical Notes 12/14/2023 Colon cancer screening (ICD-10 - Z12.11) Stop aspirin for 1 week before the procedures Do not take the Hydrochlorothiaizide or the Spironolactone the day before nor on the day of the procedures 12/14/2023 Dysphagia (ICD-10 - R13.10) 12/14/2023 GERD (gastroesophage al reflux disease) (ICD-10 - K21.9) Use some over the counter Ranitidine, Pepcid, Omeprazole, Prilosec for heartburn as needed or every day, and watch the diet to prevent the reflux PLAN OF TREATMENT Treatment Notes Assessment Notes Colon cancer screening Stop aspirin for 1 week before the procedures Do not take the Hydrochlorothiaizide or the Spironolactone the day before nor on the day of the procedures GERD (gastroesophageal reflux disease) U se some over the counter Ranitidine, Pepcid, Omeprazole, Prilosec for heartburn as needed or every day, and watch the diet to prevent the reflux Future Test Test Name Order Date UPPER GI ENDOSCOPY BALLOOON DILATION OF ESOPH 12/14/2023 COLONOSCOPY 12/14/2023 Next Appt Details Follow Up: prn, Reason: Progress Notes * Examination Category Sub-Category Detail Notes General Examination GENERAL APPEARANCE: pleasant , well nourished, well developed, in no acute distress HEAD: EYES: sclera non-icteric EARS: NOSE: THROAT: NECK/THYROID: no cervical lymphade nopathy, neck supple HEART: S1, S2 normal CHEST: LUNGS: clear to auscultatio n bilaterally ABDOMEN: normal bowel sounds, no guarding or rigidity, no guarding or rigidity, no masses palpable, soft, nontender, nondistended NEUROLOGIC: alert and oriented SKIN: nonjaundiced, no spi mine angiomata EXTREMITIES: no edema PERIPHERAL PULSES: BACK: BREASTS: MUSCULOSKELETAL: MALE GENITOURINARY: LYMPH NODES: RECTAL EXAM: FEMALE GENITOURINARY: ORAL CAVITY: mucosa moist
--- OUTSIDE RECORDS SUMMARY | 2024-08-23 09:38 | XMS_ITS | Patient Health Record ---
Author Organization [facility] Address [address] [place] [address] Care Team Providers Care Customer Service Agent Name Role Phone Etienne Page MD Primary Care Provider Johann Green [phone] ALLERGIES Allergen (clinical drug ingredient) Drug/Non Drug Allergy documented on EMR Reaction Allergy Type Onset Date Status lisinopril Lisinopril Unknown Drug Allergy Activ e RESULTS Component Value Reference Range Notes Pathology (Not yet reviewed by provider) Interpretation: Performing Lab:[facility], [address] [place] [id number] Notes/Report: REASON FOR REFERRAL No Information MEDICATIONS Medication SIG (Take, Route, Frequency, Duration) Notes Start Date End Date Status Aspirin Adult Low Dose 81 MG 1 tablet Or ally Once a day for 30 day(s) Active Biotin Active Co Q 10 Active Atorvastatin Calcium 20 MG TAKE 1 TABLET BY MOUTH DAILY Oral for 90 Active Spironolactone 25 MG Oral for 90 Active Metoprolol Succinate ER 25 MG Oral for 90 Active hydroCHLOROthiazide 25 MG Oral for 90 Active Triamcinolone Acetonide 0.5 % External for 30 Active SOCIAL HISTORY Tobacco Use: Social History [...] screening (Z12.11) Active confirmed Colon cancer screening (920620063) Problem GERD (gastroesophageal reflux disease) (K21.9) Active confirmed Gastroesophagea l reflux disease (657203343) Problem Dysphagia (R13.10) Active confirmed Dysphagia (95827116) Problem Diverticulosis of large intestine without perforation or abscess without bleeding (K57.30) Active confirmed Diverticul ar disease of colon (714657672) Problem Esophageal obstruction (K22.2) Active confirmed Stricture of esophagus (89308375) Encounters Encounter Location Date Provider Diagnosis [facility] [place] [address] [place] [phone] 04/04/2024 Johann Candelario Colon cancer screeni ng Z12.11 ; Diverticulosis of large intestine without perforation or abscess without bleeding K57.30 ; Other hemorrhoids K64.8 ; Esophageal obstruction K22.2 ; Hiatal hernia K44.9 and Dysphagia R13.10 [facility] [address] [place] [address] 12/14/2023 Johann Candelario Colon cancer screeni ng Z12.11 ; Dysphagia R13.10 and GERD (gastroesophageal reflux disease) K21.9 ASSESSMENTS Encounter Date Diagnosis Assessment Notes Treatment Notes Treatment Clinical Notes 04/04/2024 Colon cancer screening (ICD-10 - Z12.11) 04/04/2024 Diverticulosis of large intestine without perforation or abscess without bleeding (ICD-10 - K57.30) 12/14/2023 Colon cancer screening (ICD-10 - Z12.11) Stop aspirin for 1 week before the procedures Do not take the Hydrochlorothiaizide or the Spironolactone the day before nor on the day of the procedures 12/14/2023 Dysphagia (ICD-10 - R13.10) 04/04/2024 Other hemorrhoids (ICD-10 - K64.8) 12/14/2023 GERD (gastroesophageal reflux disease) (ICD-10 - K21.9) Use some over the counter Ranitidine, Pepcid, Omeprazole, Prilosec for heartburn as needed or every day, and watch the diet to prevent the reflux 04/04/2024 Esophageal obstruction (ICD-10 - K22.2) 04/04/2024 Hiatal hernia (ICD-10 - K44.9) 04/04/2024 Dysphagia (ICD-10 - R13.10) PLAN OF TREATMENT Pending Test Test Name Order Date Pathology 04/04/2024 Future Test Test Name Order Date UPPER GI ENDOSCOPY BALLOOON DILATION OF ESOPH 12/14/2023 COLONOSCOPY 12/14/2023 Insurance Providers Payer Name Payer Address Payer Phone Subscriber Number Group Number Insured Name Patient Relationship to Insured Coverage Start Date Coverage End Date [employer] Medicare Advantage Plan [address] [address] [place] [address] [id number] KARISSA MCCOY Self - patient is the insured MEDICAL (GENERAL) HISTORY Medical History History ICD Code Hypertension Urinary incontinence Hypercholesterolemia Psoriasis 2 colonoscopies at age 49 and 59 at [facility]- -? polyps Denies [place],DM,CVA,Lung disease,renal dise ase Surgical History Surgery Date(Month/Year) appendectomy 2 bladder suspensions
--- OUTSIDE RECORDS SUMMARY | 2024-08-23 09:38 | XMS_ITS ---
Author Organization [facility] Address [address] [place] [address] Care Team Providers Care Textile Colorist Dyer Name Role Phone Etienne Page MD Primary Care Provider Johann Geren Unavailable [phone] REASON FOR VISIT screening,dysphagia,gerd PROBLEMS Problem Type ICD Code Onset Dates Problem Status W/U Status Risk SNOMED Code Notes Problem Diverticulosis of large intestine without perforation or abscess without bleeding (K57.30) Active confirmed Diverticul ar disease of colon (854797166) Problem Esophageal obstruction (K22.2) Active confirmed Stricture of esophagus (12549957) Encounters Encounter Location Date Provider Diagnosis [facility] Out[facility] [address] [place], [place] [phone] 04/04/2024 Johann Candelario Colon cancer scree edmundo Z12.11 ; Diverticulosis of large intestine without perforation or abscess without bleeding K57.30 ; Other hemorrhoids K64.8 ; Esophageal obstruction K22.2 ; Hiatal hernia K44.9 and Dysphagia R13.10 ASSESSMENTS Encounter Date Diagnosis Assessment Notes Treatment Notes Treatment Clinical Notes 04/04/2024 Colon cancer screening (ICD-10 - Z12.11) 04/04/2024 Diverticulosis of large intestine without perforation or abscess without bleeding (ICD-10 - K57.30) 04/04/2024 Other hemorrhoids (ICD-10 - K64.8) 04/04/2024 Esophageal obstruction (ICD-10 - K22.2) 04/04/2024 Hiatal hernia (ICD-1 0 - K44.9) 04/04/2024 Dysphagia (ICD-10 - R13.10) PLAN OF TREATMENT No Information
[2024-08-23 10:06] LABS: Basophils Percent Auto 0.7 % (0-2); Eosinophils Absolute Auto 0.2 X10*3/uL (0.0-0.4); Eosinophils Percent Auto 4.5 % (0-4); Hematocrit 40.3 % (37.0-47.0); Hemoglobin 13.7 g/dl (12.0-16.0); Imm Gran Abs Auto 0.01 X10*3/uL (0.00-0.03); Imm Gran Pct Auto 0.2 % (0.0-0.4); Lymphocytes Percent Auto 22.7 % (20-40); Mean Corpuscular Volume 82.4 fL (80.0-98.0); Mean Platelet Volume 9.8 fL (9.4-12.3); Monocytes Absolute Auto 0.4 X10*3/uL (0.1-1.2); Monocytes Percent Auto 10.3 % (2-11); Neutrophils Absolute Auto 2.6 x10*3/uL (2.0-8.3); Neutrophils Percent Auto 61.6 % (45-73); Platelet Count 189 X10*3/uL (160-400); Red Blood Count 4.89 X10*6/uL (4.20-5.50); Red Cell Distribution Width 12.7 % (11.0-16.0); White Blood Count 4.2 X10*3/uL (4.8-10.8)
[2024-08-23 10:35] LABS: Alanine Aminotransferase 34 U/L (0-31); Alkaline Phosphatase 106 U/L (39-117); Anion Gap 10 (12-20); Aspartate Amino Transferase 32 U/L (5-31); Bilirubin Total 0.7 mg/dL (0.0-1.0); Blood Urea Nitrogen 13 mg/dL (9-16); Calcium 9.2 mg/dL (8.4-10.2); Carbon Dioxide 28 mmol/L (22-29); Chloride 107 mmol/L (96-108); Cholesterol 135 mg/dL (<200); Estimated Glomerular Filt Rate > 60; Glucose Fasting 91 mg/dL (60-99); HDL Cholesterol 62 mg/dL (>40); LDL Cholesterol Calculated 62 mg/dL (<100); Potassium 3.9 mmol/L (3.3-5.1); Sodium 141 mmol/L (135-145); Total Protein 6.8 g/dL (6.5-8.0); Triglycerides 58 mg/dL (<150)
[2024-08-23 10:49] LABS: Thyroid Stimulating Hormone 1.38 uIU/mL (0.32-4.0)
== END 2024-08-23 09:03 | disposition home or self-care (01) ==
LOC: HO.LAB 09:02
PROVIDERS: PCP Internal Medicine; Visit Provider Internal Medicine
DX: Z13.0 Encounter for screening for diseases of the blood and blood-forming organs and certain disorders involving the immune mechanism (principal); Z13.29 Encounter for screening for other suspected endocrine disorder; Z13.220 Encounter for screening for lipoid disorders; Z13.6 Encounter for screening for cardiovascular disorders
CPT/HCPCS: 36415; 80053; 80061; 84443; 85025

== ENCOUNTER 2024-09-14 08:54 | Outpatient (REF) | payer MEDICARE, SELFPAY ==
--- NOTE | 2024-09-14 09:03 | PFT_ITS ---
Flows: FEV1: 111 % of predicted at 2.52 L FVC: 119 % of predicted at 3.49 L FEV1/FVC: 72 % Bronchodilator response: Absent Volumes: Total lung capacity: 104 % of predicted at 5.34 L Residual volume: 90 % of predicted at 1.82 L Slow vital capacity: 114 % of predicted at 3.52 L Expiratory reserve volume: 89 % of predicted at 0.67 L Diffusion capacity: Normal Impression: No obstructive or restrictive ventilatory defect. No bronchodilator response. Normal pulmonary function test. MTDD
--- OUTSIDE RECORDS SUMMARY | 2024-09-14 09:16 | XMS_ITS | Patient Health Record ---
Author Organization [facility] Address [address] [place] [address] Care Team Providers Care Data Analytics Chief Scientist Name Role Phone Etienne Page MD Primary Care Provider Johann Green [phone] Allergies Allergen (clinical drug ingredient) Drug/Non Drug Allergy documented on EMR Reaction Allergy Type Onset Date Status lisinopril Lisinopril Unknown Drug Allergy Activ e Results Component Value Reference Range Notes Pathology (Not yet reviewed by provider) Interpretation: Performing Lab:[facility], [address] [place] [id number] Notes/Report: Name: Paige Mccoy Age/Sex: 68/F : 1955 Unit#: [id number] Attend Dr: Johann Candelario MD Re04/04/24 Status : [facility] Location: [facility] Disch: SPEC : [id number] RECD : 04/04/24 STATUS: MEL FINN NUM: [id number] ADALI: 04/04/[address] [facility] [address]: Johann Candelario MD ENTERED: 04/04/2411 34 SP TYPE: Surgical OTHR DR: Etienne Page MD ORDERED: HE Stain/6, Gross Micro L4, Special st. 2, AB/PAS Addendum Addendum 1 Entered: 04/09/24 Additional level wit h AB/PAS on A is negative for intestinal metaplasia. Control stains appropriately. Addendum Signed ____ __(signature on file) Danni Tumacacori 04/09/241227 Diagnosis A. Esophagogastric j unction, at 35 cm, biopsy: Squamous mucosa with hyperplasia, mild spongiosis, and foca l intraepithelial neutrophils, and columnar mucosa with mild chronic active inflammation, consistent with esophagitis,; no intestinal metaplasia identified on initial levels; nega tive for dysplasia. B. Esophagus, at 20- 25 cm, biopsy: Squamous mucosa with no specific change; no evidence of eosinophilic esop hagitis; no columnar mucosa present. Comment: (A): Additional leve l with AB/PAS stain pending; addendum to follow. Clinical History Pre-Op Dx: GERD, dys phasia, screening Post-Op Dx: Hiatal h ernia, esophageal ring, diverticulosis, hemorrhoids Microscopic Description Microscopic sections reviewed. Material Received A. EG junction at 35 cm B. Esophagus at 20-25 cm, r/o EOE CONTINUED ON NEXT PAGE Name: Paige Mccoy Age/Sex: 68/F : 1955 Unit#: [id number] Attend Dr: Johann Candelario MD Re04/04/24 Status : [facility] Location: [facility] Disch: SPEC : [id number] RECD : 04/04/24 STATUS: MEL FINN NUM: [id number] ADALI: 04/04/[address] [facility] [address]: Johann Candelario MD ENTERED: 04/04/24- 34 SP TYPE: Surgical OTHR DR: Etienne Page MD ORDERED: HE Stain/6, Gross Micro L4, Special st. 2, AB/PAS Gross Description Received in 2 parts. A. Received in forma victor hugo labeled ?EG junction at 35 cm? are 5 fragments of translucent, white soft tissue me asuring 0.3-0.5 cm in greatest dimension which are wrapped in lens paper and entirely submitt ed for microscopic examination, 5 pieces in cassette A. B. Received in forma victor hugo labeled ?esophagus at 20-25 cm R/0 EOE? are 3 fragments of translucent, pink wh ite soft tissue measuring 0.3-0.4 cm in greatest dimension which are wrapped in lens rhonda r and entirely submitted for microscopic examination, 3 pieces in cassette B. [facility] Special studies orde red and performed: AB/PAS stains on A1. Copies To: Etienne Page MD [facility],[place] [address] [place], [place] [phone] Johann Candelario MD [facility] [address] [place] [address] Signed (si gnature on file) Danni Cayden 04/05/24 1626 END OF REPORT Reason For Referral No Information Medications Medication SIG (Take, Route, Frequency, Duration) Notes [...] Acetonide 0.5 % External for 30 Active Social History Tobacco Use: Social History Observation Description Date Details (start date - stop date) Former Smoker NA - NA Tobacco Use/Smoking Question Answer Notes Patient is [...] Never (0 point) Points 1 Interpretation Negative Section Notes: Nonsmoker; occ alcohol Problems Problem Type SNOMED Code ICD Code Onset Dates Problem Status W/U Status Risk Notes Problem Colon cancer screening (714044482) Colon cancer screening (Z12.11) Active confirmed Problem Diverticular disease of colon (478069970) Diverticulosis of large intestine without perforation or abscess without bleeding (K57.30) Active confirmed Problem Dysphagia (69531422) Dysphagia (R13.10) Active confirmed Problem Stricture of esophagus (93743410) Esophageal obstruction (K22.2) Active confirmed Problem Gastroesophageal reflux disease (584354672) GERD (gastroesophageal reflux disease) (K21.9) Active confirmed Encounters Encounter Location Date Provider Diagnosis [facility] Outpatient [address] [place] [phone] 04/04/2024 Johann Candelario Colon cancer screeni ng Z12.11 ; Diverticulosis of large intestine without perforation or abscess without bleeding K57.30 ; Other hemorrhoids K64.8 ; Esophageal obstruction K22.2 ; Hiatal hernia K44.9 and Dysphagia R13.10 [facility] [address] [place] [address] 12/14/2023 Johann Candelario Colon cancer screeni ng Z12.11 ; Dysphagia R13.10 and GERD (gastroesophageal reflux disease) K21.9 Assessments Encounter Date Diagnosis (ICD Code) Assessment [...] nor on the day of the procedures Overall, Amelie appears quite well. Given her age, good clinical appearance, and last colonoscopy being just about 10 years ago, I did recommend a followup colonoscopy for further screening purposes. We did review the rationale for that in regard to colon cancer prevention. I also recommended an upper endoscopy on the same day given her intermittent episodes of dysphagia and heartburn. Her symptoms of dysphagia may be related to some esophageal spasm due to reflux and do not seem particularly worrisome given the infrequent nature of the dysphagia and rapid resolution, but nonetheless it would be important to rule out any type of significant esophagitis, Landis's esophagus, and/or an esophageal stricture that requires dilation. Full consent was obtained from her for both procedures, including risks of bleeding and perforation. The procedures will be done with monitored anesthesia care. She was given the below instructions regarding the adjustment of her medications for the procedures. In the meantime, I advised her to watch her diet, eat smaller meals, and to use zjxd-kpa-dxxz ter acid suppression such as a H2-lawanda or PPI either as needed or daily to relieve her heartburn. Amelie was comfortable with this plan. Thank you again for allowing me to participate in Amelie's care. I shall continue to keep you advised of her progress. 12/14/2023 Dysphagia (ICD-10 - R13.10) Overall, Amelie appears quite well. Given her age, good clinical appearance, and last colonoscopy being just about 10 years ago, I did recommend a followup colonoscopy for further screening purposes. We did review the rationale for that in regard to colon cancer prevention. I also recommended an upper endoscopy on the same day given her intermittent episodes of dysphagia and heartburn. Her symptoms of dysphagia may be related to some esophageal spasm due to reflux and do not seem particularly worrisome given the infrequent nature of the dysphagia and rapid resolution, but nonetheless it would be important to rule out any type of significant esophagitis, Landis's esophagus, and/or an esophageal stricture that requires dilation. Full consent was obtained from her for both procedures, including risks of bleeding and perforation. The procedures will be done with monitored anesthesia care. She was given the below instructions regarding the adjustment of her medications for the procedures. In the meantime, I advised her to watch her diet, eat smaller meals, and to use exrn-quq-rhvb ter acid suppression such as a H2-lawanda or PPI either as needed or daily to relieve her heartburn. Amelie was comfortable with this plan. Thank you again for allowing me to participate in Amelie's care. I shall continue to keep you advised of her progress. 04/04/2024 Other hemorrhoids (ICD-10 - K64.8) 12/14/2023 GERD (gastroesophagea l reflux disease) (ICD-10 - K21.9) Use some over the counter Ranitidine, Pepcid, Omeprazole, Prilosec for heartburn as needed or every day, and watch the diet to prevent the reflux Overall, Amelie appears quite well. Given her age, good clinical appearance, and last colonoscopy being just about 10 years ago, I did recommend a followup colonoscopy for further screening purposes. We did review the rationale for that in regard to colon cancer prevention. I also recommended an upper endoscopy on the same day given her intermittent episodes of dysphagia and heartburn. Her symptoms of dysphagia may be related to some esophageal spasm due to reflux and do not seem particularly worrisome given the infrequent nature of the dysphagia and rapid resolution, but nonetheless it would be important to rule out any type of significant esophagitis, Landis's esophagus, and/or an esophageal stricture that requires dilation. Full consent was obtained from her for both procedures, including risks of bleeding and perforation. The procedures will be done with monitored anesthesia care. She was given the below instructions regarding the adjustment of her medications for the procedures. In the meantime, I advised her to watch her diet, eat smaller meals, and to use haip-xlz-xdzo ter acid suppression such as a H2-lawanda or PPI either as needed or daily to relieve her heartburn. Amelie was comfortable with this plan. Thank you again for allowing me to participate in Amelie's care. I shall continue to keep you advised of her progress. 04/04/2024 Esophageal obstruction (ICD-10 - K22.2) 04/04/2024 Hiatal hernia (ICD-10 - K44.9) 04/04/2024 Dysphagia (ICD-10 - R13.10) Plan Of Treatment Pending Test Test Name Order Date Pathology 04/04/2024 Future Test Test Name Order Date UPPER GI ENDOSCOPY BALLOOON DILATION OF ESOPH 12/14/2023 COLONOSCOPY 12/14/2023 Insurance Providers Payer Name Payer Address Payer Phone Subscriber Number Group Number Insured Name Patient Relationship to Insured Coverage Start Date Coverage End Date [facility] Medicare Advantage Plan [address] [address] [place] [address] [id number] AMELIE MCCOY Self - patient is the insured Medical (General) History Medical History History ICD Code Hypertension Urinary incontinence Hypercholesterolemia Psoriasis 2 colonoscopies at age 49 and 59 at [facility]- -? polyps Denies [place],DM,CVA,Lung disease,renal dise ase Surgical History Surgery Date(Month/Year) appendectomy 2 bladder suspensions
--- OUTSIDE RECORDS SUMMARY | 2024-09-14 09:16 | XMS_ITS ---
Author Organization [facility] Address [address] [place] [address] Care Team Providers Care Pearl Glue Drier Name Role Phone Etienne Page MD Primary Care Provider Johann Green Unavailable [phone] REASON FOR VISIT screening,dysphagia,gerd Problems Problem Type SNOMED Code ICD Code Onset Dates Problem Status W/U Status Risk Notes Problem Diverticular disease of colon (542980338) Diverticulosis of large intestine without perforation or abscess without bleeding (K57.30) Active confirmed Problem Stricture of esophagus (86117310) Esophageal obstruction (K22.2) Active confirmed Encounters Encounter Location Date Provider Diagnosis [facility] Outpatient [address] [place] [phone] 04/04/2024 Johann Candelario Colon cancer scree edmundo [...] * THERON MCCOYADOB: [birth year] (69 yo F)Acc No.[id number]:04/04/2024 EGD and COL/MAC Patient:?KARISSA MCCOY Provider:?Johann Candelario MD :1955???Age:68 Y???Sex:Female D ate:04/04/2024 Address:[address] [place] [address] , [facility] Pcp:Etienne Page MD Subjective: * Chief Complaints: * ???1. Screening,dysphagia,ge rd. * Medical History:? Objective: * Vitals:? Assessment: * Assessment: 1.?Colon cancer screening - Z12.11 (Primary)???2.?Diverticulosis of large intestine without perforation or abscess without bleeding - K57.30???3.?Other hemorrhoids - K64.8???4.?Esophageal obstruction - K22.2???5.?Hiatal hernia - K44.9???6.?Dysphagia - R13.10??? Plan: * Treatment: * Procedure Codes:?G0121 COLOR EC CNCR SCR;COLNSCPY NO HI RSK, 0529F INTRVL 3+YRS PTS CLNSCP DOCD, Modifiers: 8P , 0528F RCMND FLW-UP 10 YRS DOCD, Modifiers: 1P , 99669 ESOPH ENDOSCOPY, DILATION, 37295 UPPER GI ENDOSCOPY, BIOPSY, Modifiers: 59 * * The named appointment provid er may or may not be the originator of this progress note, and it is not deemed complete until electronically signed by the appointment provider. Sign off status: Pending * Provider:?Johann Candelario MD Date:? 024 Generated for Enmanuel whitaker/Estuardo/eTransmitting on:?09/14/2024 09:15 AM EDT
--- OUTSIDE RECORDS SUMMARY | 2024-09-14 09:16 | XMS_ITS ---
Author Organization [facility] Address [address] [place] [address] Care Team Providers Care Warehouse Order Picker Name Role Phone Etienne Page MD Primary Care Provider Johann Green Unavailable [phone] Allergies Allergen (clinical drug ingredient) Drug/Non Drug Allergy documented on EMR Reaction Allergy Type Onset Date Status lisinopril Lisinopril Unknown Drug Allergy Activ e REASON FOR VISIT Patient presents today for a COLON SCREENING Medications Medication SIG (Take, Route, Frequency, Duration) [...] Active Biotin Active Co Q 10 Active Social History Tobacco Use: Social History [...] Status Risk Notes Problem Colon cancer screening (831168509) Colon cancer screening (Z12.11) Active confirmed Problem Gastroesophageal reflux disease (512480046) GERD (gastroesopha geal reflux disease) (K21.9) Active confirmed Problem Dysphagia (09804740) Dysphagia (R13.10) Active confirmed Encounters Encounter Location Date Provider Diagnosis [facility] [address] [place] [address] 12/14/2023 Johann Candelario Colon cancer screening Z12.11 ; Dysphagia R13.10 and GERD (gastroesophageal reflux disease) K21.9 Assessments Encounter Date Diagnosis (ICD Code) Assessment Notes Treatment Notes Treatment Clinical Notes Section Notes 12/14/2023 Colon cancer screening (ICD-10 - [...] diet, eat smaller meals, and to use fhhh-oft-ebsep er acid suppression such as a H2-lawanda or [...] diet, eat smaller meals, and to use deul-kzp-iyxsi er acid suppression such as a H2-lawanda or PPI either as needed or daily to relieve her heartburn. Amelie was comfortable with this plan. Thank you again for allowing me to participate in Amelie's care. I shall continue to keep you advised of her progress. 12/14/2023 GERD (gastroesoph ageal reflux disease) (ICD-10 - K21.9) Use some [...] diet, eat smaller meals, and to use dyad-vvh-zvjch er acid suppression such as a H2-lawanda or PPI either as needed or daily to relieve her heartburn. Amelie was comfortable with this plan. Thank you again for allowing me to participate in Amelie's care. I shall continue to keep you advised of her progress. Plan Of Treatment Treatment Notes Assessment Notes Colon cancer screening [...] Follow Up: prn, Reason: Progress Notes * THERON MCCOYADOB: [birth year] (68 yo F)Acc No.[id number]:12/14/2023 Progress Notes Patient:?AMELIE MCCOY Provider:?Johann Candelario MD :1955???Age:68 Y???Sex:Female D ate:12/14/2023 Address:[address] [place], [place] [id number] Pcp:Etienne Page MD Subjective: * Chief Complaints: * ???Patient presents today fo r a COLON SCREENING * HPI: ???incontinence:? I saw Amelie in consultation today in regard to further evaluation of her intermittent dysphagia, gastroesophageal reflux, and need for colorectal cancer screening. ?As you know, Amelie is a 68-year-old female who generally feels well. She describes 2 previous colonoscopies at age 49 [address] Arciniega. She is not certain of the results. She describes intermittent episodes of reflux that are worsened by overeating. She has noticed occasional episodes of dysphagia to food That usually resolve by drinking water. These episodes are infrequent and the great majority of the time she is eating normally and comfortably. She has a good appetite and denies any early satiety, nausea, or vomiting. She denies abdominal pain, jaundice, nor unintentional weight loss. She reports that her bowel movements have been regular and without any signs of bleeding. She denies any known family history of colon cancer. * ROS:?General/Constitutional:?Change in appetite?denies.?Chills?denies.?Fatigue?denies.?Ophthalmologic:?Comments?all negative.?ENT:?Comments?all negative.?Respiratory:?hemoptysis?denies.?Cough?denies.?Cardiovascular:?Chest pain?denies.?Orthopnea?denies.?Gastrointestinal:?Comments?See HPI for details.?Genitourinary:?Hematuria?denies.?Dysuria?denies.?Musculoskeletal:?Painful joints?denies.?Weakness?denies.?Skin:?Itching?denies.?Rash?denies.?Neurologic:?Headache?denies.?Seizures?denies.?Psychiatric:?Comments?all negative.? * Medical History:? * Surgical History:?appendecto my 2 bladder suspensions * Hospitalization/Major Diagno stic Procedure:?No Hospitalization History. * Family History:?Father: dece ased, diagnosed with HTN (hypertension).?Mother: , diagnosed with HTN (hypertension).? no known hx of colon ca, esophageal cancer or polyps. * Social History:?Tobacco Use:?Tobacco Use/Smoking?Patient is a?former smoker,?How long has it been since you last smoked??> 10 years.?Drugs/Alcohol:?Alcohol Screen?Did you have a drink containing alcohol in the past year??Yes,?How often did you have a drink containing alcohol in the past year??Monthly or less (1 point), How many drinks did you have on a typical day when you were drinking in the past year??1 or 2 drinks (0 point),?How often did you have 6 or more drinks on one occasion in the past year??Never (0 point),?Points?1,?Interpretation?Negative.?Miscellaneous:?Marital status: . 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 ???Nonsmoker; occ alcohol. * Medications:?TakingCo Q 10 B iotin Aspirin Adult Low Dose 81 MG Tablet Delayed Release 1 tablet Orally Once a dayTriamcinolone Acetonide 0.5 % Cream External hydroCHLOROthiazide 25 MG Tablet Oral Metoprolol Succinate ER 25 MG Tablet Extended Release 24 Hour Oral Spironolactone 25 MG Tablet Oral Atorvastatin Calcium 20 MG Tablet TAKE 1 TABLET BY MOUTH DAILY Oral Medication List reviewed and reconciled with the patientTaking Co Q 10 Taking Biotin Taking Aspirin Adult Low Dose 81 MG Tablet Delayed Release 1 tablet Orally Once a dayTaking Triamcinolone Acetonide 0.5 % Cream External Taking hydroCHLOROthiazide 25 MG Tablet Oral Taking Metoprolol Succinate ER 25 MG Tablet Extended Release 24 Hour Oral Taking Spironolactone 25 MG Tablet Oral Taking Atorvastatin Calcium 20 MG Tablet TAKE 1 TABLET BY MOUTH DAILY Oral Medication List reviewed and reconciled with the patient * Allergies:?Lisinoprilyes[All ergies Verified] Objective: * Examination: ???General Examination: ?GENERAL APPEARANCE:?pleasant, well nourished, well developed, in no acute distress.?EYES:?sclera non-icteric.?ORAL CAVITY:?mucosa moist.?NECK/THYROID:?no cervical lymphadenopathy, neck supple.?SKIN:?nonjaundiced, no spider angiomata.?HEART:?S1, S2 normal.?LUNGS:?clear to auscultation bilaterally.?ABDOMEN:?normal bowel sounds, no guarding or rigidity, no guarding or rigidity, no masses palpable, soft, nontender, nondistended.?EXTREMITIES:?no edema.?NEUROLOGIC:?alert and oriented.? Assessment: * Assessment: 1.?Dysphagia - R13.10 (Prima ry)?2.?Colon cancer screening - Z12.11?3.?GERD (gastroesophageal reflux disease) - K21.9? Overall, Amelie appears q uite well. Given her age, good clinical appearance, [...] diet, eat smaller meals, and to use cwnw-hqg-iwjagep acid suppression such as a H2-lawanda or PPI either as needed or daily to relieve her heartburn. Amelie was comfortable with this plan. Thank you again for allowing me to participate in Amelie's care. I shall continue to keep you advised of her progress. Plan: * Treatment: 2.?Colon cancer screening?Procedure: COLONOSCOPY (Ordered for 12/14/2023)* with MACsched for 04/04/24 at 9:30 ammiralax Notes: Stop aspirin for 1 week before the procedures Do not take the Hydrochlorothiaizide or the Spironolactone the day before nor on the day of the procedures??3.?GERD (gastroesophageal reflux disease)?Procedure: UPPER GI ENDOSCOPY BALLOOON DILATION OF ESOPH (Ordered for 12/14/2023)* with MACsche for 04/04/24 at 9:30 am Notes: Use some over the counter Ranitidine, Pepcid, Omeprazole, Prilosec for heartburn as needed or every day, and watch the diet to prevent the reflux?? * Procedure Codes:?3017F COLOR ECTAL CA SCREEN DOC [id number] TOBACCO NON-JALGE1254 BP SCR NOT PRFRM REC REASON NOS * Preventive Medicine:? ??Counseling:?Care goal follow-up plan:?Above Normal BMI Follow-up?Giving encouragement to exercise,?BMI management provided?Yes.? ??Urinary Incontinence:?Urinary Incontinence?Assessment:?Present,?Plan of care documented:?Yes,?Type of plan of care:?Lifestyle interventions.? * Follow Up:?prn * * Sign off status: Completed true * Provider:?Johann Candelario MD Date:? 024 Generated for Enmanuel whitaker/Estuardo/Juvenal on:?09/14/2024 09:15 AM EDT History and Physical Notes * HPI (History of Present Illness) Category Sub-Category Detail Notes Category Not es incontinence I saw Amelie in consultation today in regard to further evaluation of her intermittent dysphagia, gastroesophageal reflux, and need for colorectal cancer screening. As you know, Amelie is a 68-year-old female who generally feels well. She describes 2 previous colonoscopies at age 49 [address] Arciniega. She is not certain of the results. She describes intermittent episodes of reflux that are worsened by overeating. She has noticed occasional episodes of dysphagia to food That usually resolve by drinking water. These episodes are infrequent and the great majority of the time she is eating normally and comfortably. She has a good appetite and denies any early satiety, nausea, or vomiting. She denies abdominal pain, jaundice, nor unintentional weight loss. She reports that her bowel movements have been regular and without any signs of bleeding. She denies any known family history of colon cancer. Examination Category Sub-Category Detail Notes Category Not es General Examination GENERAL APPEARANCE: pleasant , well [...]
[2024-09-14 09:41] VITALS: PULSE 69
== END 2024-09-14 08:55 | disposition home or self-care (01) ==
LOC: HO.RESP 08:54
PROVIDERS: PCP Internal Medicine; Visit Provider Nurse Practitioner Family
DX: R05.9 Cough, unspecified (principal)
CPT/HCPCS: 94010; 94640; 94727; 94729

== ENCOUNTER → 2024-09-14 09:03 | Outpatient (BNV) | payer MEDICARE, SELFPAY | PROVIDERS: PCP Internal Medicine; Visit Provider Internal Medicine Pulmonary Disease | DX: R05.9 Cough, unspecified (principal) | CPT/HCPCS: 94060; 94727; 94729 ==

== ENCOUNTER 2024-09-21 10:09 | Outpatient (AMB) | payer MEDICARE, SELFPAY ==
--- NOTE | 2024-09-21 10:18 | MHC.OFFVIS ---
Vital Signs 09/21/24 10:20 Height 5 ft 5 in Weight 177 lb BMI 29.5 BP 136/78 Blood Pressure Location Lt brachial Position Sitting Pulse 70 Pulse Source Pulse Oximeter Pulse Oximetry (%) 98 Oxygen Delivery Method Room Air Intake Visit Reasons: Cough/PFT Follow Up Loss Control Consultant Required: No Retirement Assistant: Retirement Assistant offered & declined Accompanied by: Self / Same As Patient Allergies GUY Inhibitors Allergy (Intermediate, Verified 09/21/24 10:24) cough Medication List - Last Reconciled 09/21/24 by Bobbi Lobato LPN albuterol sulfate 90 mcg/actuation inhalation ascorbic acid (vitamin C) 500 mg PO DAILY aspirin 81 mg PO DAILY atorvastatin 20 mg PO DAILY coenzyme Q10 (Ultra CoQ10) 150 mg PO DAILY hydrochlorothiazide 25 mg PO DAILY ketoconazole 2% 1 appl topical 2XW metoprolol succinate ER 12.5 mg (1/2 x 25 mg) PO DAILY omega-3 fatty acids (Fish Oil Concentrate) 1,000 mg PO DAILY spironolactone 12.5 mg (1/2 x 25 mg) PO DAILY triamcinolone acetonide 0.5% 1 appl topical DAILY zinc 50 mg PO DAILY HPI HPI Cough/PFT Follow Up: Details: Amelie is a pleasant 68 year old female, former smoker, quit 10 years ago with 20 pack year history, with underlying CAD and HTN. She continues to report occasional dry cough and chest tightness, which resolves with albuterol. She reports using albuterol MDI multiple times per day with good effect. Today she presents to review PFT. She denies any visits to urgent care or hospitalizations related to respiratory distress since the last visit. [facility] Medical History Psoriasis GERD (gastroesophageal reflux disease) Obesity CAD (coronary artery disease) Hyperlipidemia Hypertension Surgical History History of cystocele History of appendectomy History of cystoscopy H/O basal cell carcinoma excision Family History (Updated 08/13/24 @ 08:59 by ADY Briggs) Father No problems noted. Mother Stomach cancer Social History Housing: Condominium Alcohol intake: current Alcohol intake frequency: holidays/special occasions only Patient Tobacco Use Status: Former Tobacco user e-Cigarette/Vaping Use: Never Used Second Hand Smoke Exposure: Yes service: No Current occupational status: employed Current occupational exposures/hazards: No Cognitive needs: No Hearing needs: No Vision needs: Yes Review of Systems Const Denies chills, Denies excessive sweating, Denies fever(s), Denies headache(s) and Denies night sweats Eyes Denies dry eyes, Denies irritation and Denies itchy eyes ENT Reports Normal hearing present, Denies headache(s), Denies nasal discharge, Denies post nasal drip and Denies sore throat Card Denies chest pain, Denies chest pain at rest, Denies chest pain with activity, Denies claudication, Denies leg edema, Denies orthopnea and Denies paroxysmal nocturnal dyspnea Resp Denies chest congestion, Denies excessive phlegm production, Denies pain on inspiration, Denies pain with cough, Denies stridor and Denies wheezing Musc Denies myalgias Neuro Reports Normal hearing present and Denies headache(s) Endo Denies excessive sweating Yaya/Lymph Denies lymphadenopathy Aller/Immun Denies itchy eyes, Denies seasonal rhinorrhea and Denies wheezing Physical Exam Vital Signs: Last Vital Signs Pulse 70 09/21/24 10:20 BP 136/78 09/21/24 10:20 Pulse Ox 98 09/21/24 10:20 Oxygen Delivery Method Room Air 09/21/24 10:20 BMI result Body Mass Index 29.5 Const General: cooperative, healthy appearing, comfortable, no acute distress, well developed and alert Orientation/consciousness: patient oriented x3 Limitations: no limitations HEENT Head: Yes normal to inspection, Yes normocephalic and Yes atraumatic Ears: hearing grossly normal bilaterally and external ears normal Eyes General: appearance normal, both eyes and all related structures Eyelids: Yes eyelids normal Sclerae: sclerae normal EOM: EOMs intact bilaterally Neck Neck: Yes normal visual inspection and Yes no lymphadenopathy Lymphatic: no lymphadenopathy noted Chest Chest palpation & inspection: normal inspection of the chest Resp Effort & Inspection: normal respiratory effort, able to speak in complete sentences, no audible wheezes, no cough, no stridor, not tachypneic, no tripod positioning and no use of accessory muscles Auscultation: clear to auscultation bilaterally Cardio Jugular venous distension: no JVD Rate: regular rate Rhythm: regular rhythm Skin Other: warm, dry General skin exam: no rashes or lesions noted Neuro General: patient oriented x3 Cranial nerves: Yes Normal hearing present Cognition (Neuro): normal cognition Gait exam (Neuro): Normal gait present Extrem General: Yes normal to inspection, Yes capillary refill normal, Yes no clubbing, cyanosis or edema and Yes no pedal edema Psych Appearance: grossly normal and well kempt Speech and movement: Normal speech and movement present and Clear speech present Affect: normal affect Attitude: cooperative Thought process: Normal thought process present Thought content: Normal thought content present Insight: Good insight present (Psych) Judgement: Good judgement present (Psych) Assessment & Plan Assessment & Plan (1) Asthma: Code(s): J45.909 - Unspecified asthma, uncomplicated Category: Medical (2) Cough: Code(s): R05.9 - Cough, unspecified Category: Medical (3) Dyspnea on exertion: Code(s): R06.09 - Other forms of dyspnea Category: Medical (4) Environmental allergies: Code(s): Z91.09 - Other allergy status, other than to drugs and biological substances Category: Medical Plan Reviewed PFT which revealed no obstructive or restrictive ventilatory defect. No bronchodilator response, expect in small to medium airways suggestive of small airways disease. DLCO normal. Will empirically trial Breo. Discussed importance of good oral hygiene to prevent thrush. All questions were answered and patient is in agreement of plan. Will follow up in 6-8 weeks or sooner if needed. Medications: New fluticasone furoate-vilanterol 100-25 mcg/dose (Breo Ellipta) 1 inh inhalation DAILY 60 ea 3RF Coding Level of Care Code Est Pt Level 4 (79313) Diagnoses Asthma J45.909 Cough R05.9 Dyspnea on exertion R06.09 Environmental allergies Z91.09
[2024-09-21 10:20] VITALS: BP 136/78; PULSE 70; O2SAT 98; BMI 29.5
--- OUTSIDE RECORDS SUMMARY | 2024-09-21 11:59 | XMS_ITS | Patient Health Record ---
Author Organization [facility] Address [address] [place] [address] Care Team Providers Care Fire Prevention Engineer Name Role Phone Etienne Page MD Primary Care Provider Johann Green [phone] Allergies Allergen (clinical drug ingredient) Drug/Non Drug Allergy documented on EMR Reaction Allergy Type Onset Date Status lisinopril Lisinopril Unknown Drug Allergy Activ e Results Component Value Reference Range Notes Pathology (Not yet reviewed by provider) Interpretation: Performing Lab:[facility], [address] [place] [id number] Notes/Report: Name: Paige Mccoy Age/Sex: 68/F : 1955 Unit#: [id number] Attend Dr: Johann Candelario MD Re04/04/24 Status : [facility] Location: [facility] Disch: SPEC : [id number] RECD : 04/04/24 STATUS: MEL FINN NUM: [id number] ADALI: 04/04/[address] [facility] DR: Johann Candelario MD ENTERED: 04/04/2411 34 SP TYPE: Surgical OTHR DR: Etienne Page MD ORDERED: HE Stain/6, Gross Micro L4, Special st. 2, AB/PAS Addendum Addendum 1 Entered: 04/09/24 Additional level wit h AB/PAS on A is negative for intestinal metaplasia. Control stains appropriately. Addendum Signed ____ __(signature on file) Danni Westland 04/09/241227 Diagnosis A. Esophagogastric j unction, at [...] Paige Mccoy Age/Sex: 68/F : 1955 Unit#: [id number] Attend Dr: Johann Candelario MD Re04/04/24 Status : [facility] Location: [facility] Disch: SPEC : [id number] RECD : 04/04/24 STATUS: MEL FINN NUM: [id number] ADALI: 04/04/[address] [facility] [address]: Johann Candelario MD ENTERED: 04/04/24- 34 SP TYPE: Surgical OTHR DR: Etienne Paeg MD ORDERED: HE Stain/6, Gross Micro L4, [...] microscopic examination, 3 pieces in cassette [facility] Special studies orde red and performed: AB/PAS stains on A1. Copies To: Etienne Page MD [facility] Primary Care,[place] [address] [place], [place] [id number] Johann Candelario MD [facility] [address] [place] [address] Signed (si gnature on file) Danni Cayden [...] Status Risk Notes Problem Colon cancer screening (227531642) Colon cancer screening (Z12.11) Active confirmed Problem Diverticular disease of colon (274297461) Diverticulosis of large intestine without perforation or abscess without bleeding (K57.30) Active confirmed Problem Dysphagia (10672964) Dysphagia (R13.10) Active confirmed Problem Stricture of esophagus (63141579) Esophageal obstruction (K22.2) Active confirmed Problem Gastroesophageal reflux disease (408539604) GERD (gastroesophageal reflux disease) (K21.9) Active confirmed Encounters Encounter Location Date Provider Diagnosis [facility] Outpatient [address] [place] [phone] 04/04/2024 Johann Candelario Colon cancer screeni ng Z12.11 ; Diverticulosis of large intestine without perforation or abscess without bleeding K57.30 ; Other hemorrhoids K64.8 ; Esophageal obstruction K22.2 ; Hiatal hernia K44.9 and Dysphagia R13.10 [facility] [address] [place] [address] 12/14/2023 Johann Candelario Colon cancer screeni ng [...] diet, eat smaller meals, and to use lqdi-pjc-lcfg ter acid suppression such as a H2-lawanda [...] diet, eat smaller meals, and to use rfmz-fws-eohy ter acid suppression such as a H2-lawanda [...] diet, eat smaller meals, and to use crut-ejg-zhiw ter acid suppression such as a H2-lawanda [...] Insured Coverage Start Date Coverage End Date [facility] Medicare Advantage Plan [address] [address] [place] [address] [id number] AMELIE MCCOY Self - patient is the insured Medical (General) History Medical History History ICD Code Hypertension Urinary incontinence Hypercholesterolemia Psoriasis 2 colonoscopies at age 49 and 59 at [facility]- -? polyps Denies NH,DM,CVA,Lung disease,renal dise ase Surgical History Surgery Date(Month/Year) appendectomy 2 bladder suspensions
--- OUTSIDE RECORDS SUMMARY | 2024-09-21 11:59 | XMS_ITS ---
Author Organization [facility] Address [address] [place] [address] Care Team Providers Care Health Promotion Manager Name Role Phone Etienne Page MD Primary Care Provider Johann Green Unavailable [phone] REASON FOR VISIT screening,dysphagia,gerd Problems Problem Type SNOMED Code ICD Code Onset Dates Problem Status W/U Status Risk Notes Problem Diverticular disease of colon (450537234) Diverticulosis of large intestine without perforation or abscess without bleeding (K57.30) Active confirmed Problem Stricture of esophagus (64280162) Esophageal obstruction (K22.2) Active confirmed Encounters Encounter Location Date Provider Diagnosis [facility] Outpatient [address] [place], [place] [phone] 04/04/2024 Johann Candelario Colon cancer scree edmundo [...] * THERON MCCOYADOB: [birth year] (69 yo F)Acc No.[id number]:04/04/2024 EGD and COL/MAC Patient:?KARISSA MCCOY Provider:?Johann Candelario MD :1955???Age:68 Y???Sex:Female D ate:04/04/2024 Address:[address] [place] [address] , [facility] Pcp:Etienne Page MD Subjective: * Chief Complaints: [...] FLW-UP 10 YRS DOCD, Modifiers: 1P , 60492 ESOPH ENDOSCOPY, DILATION, 22681 UPPER GI ENDOSCOPY, BIOPSY, Modifiers: 59 * * The named appointment provid er may or may not be the originator of this progress note, and it is not deemed complete until electronically signed by the appointment provider. Sign off status: Pending * Provider:?Johann Candelario MD Date:? 024 Generated for Enmanuel whitaker/Estuardo/eTransmitting on:?09/21/2024 11:58 AM EDT
--- OUTSIDE RECORDS SUMMARY | 2024-09-21 11:59 | XMS_ITS ---
Author Organization [facility] Address [address] [place] [address] Care Team Providers Care Misdraw Hand Name Role Phone Etienne Page MD Primary Care Provider Johann Green Unavailable [phone] Allergies Allergen (clinical drug ingredient) Drug/Non Drug [...] Status Risk Notes Problem Colon cancer screening (445941232) Colon cancer screening (Z12.11) Active confirmed Problem Gastroesophageal reflux disease (347538116) GERD (gastroesopha geal reflux disease) (K21.9) Active confirmed Problem Dysphagia (31085413) Dysphagia (R13.10) Active confirmed Encounters Encounter Location Date Provider Diagnosis [facility] [address] [place] [address] 12/14/2023 Johann Candelario Colon cancer screening Z12.11 [...] diet, eat smaller meals, and to use djtx-swb-icrmf er acid suppression such as a H2-lawanda [...] diet, eat smaller meals, and to use kgab-vdo-fjcqu er acid suppression such as a H2-lawanda [...] diet, eat smaller meals, and to use cvba-qly-arqgj er acid suppression such as a H2-lawanda [...] * THERON MCCOYADOB: [birth year] (68 yo F)Acc No.[id number]:12/14/2023 Progress Notes Patient:?AMELIE MCCOY Provider:?Johann Candelario MD :1955???Age:68 Y???Sex:Female D ate:12/14/2023 Address:[address] [place], [place] [phone] Pcp:Etienne Page MD Subjective: * Chief Complaints: [...] past year??Never (0 point),?Points?1,?Interpretation?Negative.?Miscellaneous:?Marital status: . 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 ???Nonsmoker; occ alcohol. * Medications:?TakingCo Q 10 [...] diet, eat smaller meals, and to use xtsi-dvp-wweolax acid suppression such as a H2-lawanda or [...] Procedure Codes:?3017F COLOR ECTAL CA SCREEN DOC [id number] TOBACCO NON-EHKRA5459 BP SCR NOT PRFRM REC REASON NOS * Preventive Medicine:? ??Counseling:?Care goal follow-up plan:?Above Normal BMI Follow-up?Giving encouragement to exercise,?BMI management provided?Yes.? ??Urinary Incontinence:?Urinary Incontinence?Assessment:?Present,?Plan of care documented:?Yes,?Type of plan of care:?Lifestyle interventions.? * Follow Up:?prn * * Sign off status: Completed true * Provider:?Johann Candelario MD Date:? 024 Generated for Enmanuel whitaker/Estuardo/Juvenal on:?09/21/2024 11:58 AM EDT History and Physical Notes * [...]
== END 2024-09-21 11:01 | disposition home or self-care (01) ==
LOC: HO.HPSW 10:09
PROVIDERS: PCP Internal Medicine; Visit Provider Nurse Practitioner Family
DX: J45.909 Unspecified asthma, uncomplicated (principal); R05.9 Cough, unspecified; R06.09 Other forms of dyspnea; Z91.09 Other allergy status, other than to drugs and biological substances
CPT/HCPCS: 99214

== ENCOUNTER → 2024-09-21 10:09 | Outpatient (BNVA) | payer MEDICARE, SELFPAY | PROVIDERS: PCP Internal Medicine; Visit Provider Nurse Practitioner Family | DX: J45.909 Unspecified asthma, uncomplicated (principal); R05.9 Cough, unspecified; R06.09 Other forms of dyspnea; Z91.09 Other allergy status, other than to drugs and biological substances | CPT/HCPCS: 99212 ==

== ENCOUNTER 2024-09-25 14:02 | Outpatient (AMB) | payer MEDICARE, SELFPAY ==
--- NOTE | 2024-09-25 14:05 | MHC.OFFVIS ---
Vital Signs 09/25/24 14:06 Height 5 ft 5 in Weight 178 lb 9.191 oz BMI 29.7 BP 132/80 Blood Pressure Location Lt brachial Position Sitting Pulse 77 Intake Visit Reasons: 1 yr f/up echo Intake Note: 1 year follow-up after echo had office ekg 08/23 c/o skipped beats and chest heaviness at times Head Golf Coach Required: No Allergies GUY Inhibitors Allergy (Intermediate, Verified 09/21/24 10:24) cough Medication List - Last Reconciled 09/25/24 by Ritesh Sanders MD albuterol sulfate 90 mcg/actuation inhalation ascorbic acid (vitamin C) 500 mg PO DAILY aspirin 81 mg PO DAILY atorvastatin 20 mg PO DAILY coenzyme Q10 (Ultra CoQ10) 150 mg PO DAILY hydrochlorothiazide 25 mg PO DAILY ketoconazole 2% 1 appl topical 2XW metoprolol succinate ER 12.5 mg (1/2 x 25 mg) PO DAILY omega-3 fatty acids (Fish Oil Concentrate) 1,000 mg PO DAILY spironolactone 12.5 mg (1/2 x 25 mg) PO DAILY triamcinolone acetonide 0.5% 1 appl topical DAILY zinc 50 mg PO DAILY HPI Comments Details: Amelie comes for follow-up. She continues to have symptoms of intermittent chest pressure, and she says when she checks her pulse she was irregular pulse with skipped heartbeats. She is very bothered by the symptoms. She does not have actual palpitations. No lightheadedness, syncope. She is very bothered by the symptoms. She came in urgently in August for EKG, at which time she says she did not have symptoms EKGs not show any significant arrhythmias. She has had no exertional chest pain. No heart failure symptoms. Taking all her medications. [facility] Medical History Psoriasis GERD (gastroesophageal reflux disease) Obesity CAD (coronary artery disease) Hyperlipidemia Hypertension Surgical History History of cystocele History of appendectomy History of cystoscopy H/O basal cell carcinoma excision Family History Father No problems noted. Mother Stomach cancer Social History Housing: [facility] Alcohol intake: current Alcohol intake frequency: holidays/special occasions only Patient Tobacco Use Status: Former Tobacco user e-Cigarette/Vaping Use: Never Used Second Hand Smoke Exposure: Yes service: No Current occupational status: employed Current occupational exposures/hazards: No Cognitive needs: No Hearing needs: No Vision needs: Yes Review of Systems Const Denies chills, Denies fatigue, Denies fever(s), Denies frequent falls, Denies weakness, Denies weight gain and Denies weight loss ENT Denies dizziness Card Denies chest pain, Denies leg edema, Denies lightheadedness, Denies palpitations, Denies dyspnea, Denies dyspnea on exertion, Denies orthopnea and Denies other (loss of consciousness) Resp Denies cough, Denies dyspnea and Denies dyspnea on exertion GI Denies hematochezia and Denies change in stool character Musc Denies abnormal gait, Denies muscle weakness, Denies numbness, Denies radiating pain into limb and Denies tingling Neuro Denies abnormal gait, Denies dizziness, Denies frequent falls, Denies numbness, Denies tingling and Denies weakness Endo Denies fatigue and Denies palpitations Physical Exam Vital Signs: Last Vital Signs Pulse 77 09/25/24 14:06 BP 132/80 09/25/24 14:06 BMI result Body Mass Index 29.7 Const General: cooperative, comfortable, no acute distress, alert, awake and well groomed Nutritional Appearance: overweight Orientation/consciousness: patient oriented x3 Limitations: no limitations Neck Neck: Yes trachea midline, Yes supple and Yes no JVD Resp Effort & Inspection: normal respiratory effort Auscultation: clear to auscultation bilaterally Cardio Jugular venous distension: no JVD Palpation: normal PMI Rate: regular rate Rhythm: regular rhythm Heart sounds: S1 normal heart sound present, S2 normal heart sound present and Other heart sounds present ( S4 present) GI Auscultation: normal bowel sounds Skin General skin exam: no rashes or lesions noted Neuro General: patient oriented x3 and no focal motor deficits Extrem General: Yes no clubbing, cyanosis or edema Psych Appearance: grossly normal Assessment & Plan Assessment & Plan (1) Palpitations: Code(s): R00.2 - Palpitations Plan: Recently increasing symptoms of chest pressure associated with irregular heartbeat which are very bothersome to her. These are most suggestive of extra systoles. I would suggest her to undergo 7 day Holter monitor to assess for the type of arrhythmias as frequency of arrhythmias that will guide treatment. She will also need a repeat echocardiogram. She was no other ischemic symptoms at this point time and does not require any stress testing. Will discussed treatment based on the findings of test results. Could avoid pharmacotherapy at this point time. Stress mitigation strategies were discussed. Continue metoprolol therapy at current dose. Avoidance of stimulants was discussed. (2) CAD (coronary artery disease): Comment: Nonobstructive CAD with 30% lesion in the LAD and circumflex artery by coronary CTA, February 2021 Code(s): I25.10 - Atherosclerotic heart disease of [place] coronary artery without angina pectoris Category: Medical Plan: Nonobstructive CAD without any obvious current concerning symptoms. Continue low-dose aspirin therapy. Continue atorvastatin therapy with target goal LDL less than 70 mg/dL. Continue aggressive blood pressure control. Encouraged to maintain activity level as tolerated. (3) Hypertension: Code(s): I10 - Essential (primary) hypertension Category: Medical Plan: Hypertension which is currently well optimized advised to monitor blood pressure at home maintain a log. Goal blood pressure less than 130/84. Low-salt diet was discussed. Stress mitigation strategies was discussed. Follow up in the clinic in 3 months time, sooner p.r.n.. Thank you for allowing me to partake in her care Orders: Orders ECG 7 day holter monitor Today R00.2 - Palpitations Coding Level of Care Code Est Pt Level 4 (96679) Complex EM visit Add On G2211 Diagnoses Palpitations R00.2 CAD (coronary artery disease) I25.10 Hypertension I10
[2024-09-25 14:06] VITALS: BP 132/80; PULSE 77; BMI 29.7
--- OUTSIDE RECORDS SUMMARY | 2024-09-25 17:32 | XMS_ITS | Patient Health Record ---
Author Organization [facility] Address [address] [place] [address] Care Team Providers Care Employment Supervisor Name Role Phone Etienne Page MD Primary Care Provider Johann Green [phone] Allergies Allergen (clinical drug ingredient) Drug/Non Drug Allergy documented on EMR Reaction Allergy Type Onset Date Status lisinopril Lisinopril Unknown Drug Allergy Activ e Results Component Value Reference Range Notes Pathology (Not yet reviewed by provider) Interpretation: Performing Lab:[facility], [address] [place] [id number] Notes/Report: Name: Paige Mccoy Age/Sex: 68/F : 1955 Unit#: [id number] Attend Dr: Johann Candelario MD Re04/04/24 Status : [facility] Location: [facility] Disch: SPEC : [id number] RECD : 04/04/24 STATUS: MEL FINN NUM: [id number] ADALI: 04/04/[address] [facility] [address]: Johann Candelario MD ENTERED: 04/04/2411 34 SP TYPE: Surgical OTHR DR: Etienne Page MD ORDERED: HE Stain/6, Gross Micro L4, Special st. 2, AB/PAS Addendum Addendum 1 Entered: 04/09/24 Additional level wit h AB/PAS on A is negative for intestinal metaplasia. Control stains appropriately. Addendum Signed ____ __(signature on file) Danni Norwood 04/09/241227 Diagnosis A. Esophagogastric j unction, at [...] Paige Mccoy Age/Sex: 68/F : 1955 Unit#: [id number] Attend Dr: Johann Candelario MD Re04/04/24 Status : [facility] Location: [facility] Disch: SPEC : [id number] RECD : 04/04/24 STATUS: MEL FINN NUM: [id number] ADALI: 04/04/[address] [facility] [address]: Johann Candelario MD ENTERED: 04/04/24- [...] microscopic examination, 3 pieces in cassette B. [facility] Special studies orde red and performed: AB/PAS stains on A1. Copies To: Etienne Page MD [facility] Primary Care,[place] [address] [place], [place] [id number] Johann Candelario MD [facility] [address] [place] [address] Signed (si gnature on file) Danni Cayden [...] Status Risk Notes Problem Colon cancer screening (000963091) Colon cancer screening (Z12.11) Active confirmed Problem Diverticular disease of colon (213582504) Diverticulosis of large intestine without perforation or abscess without bleeding (K57.30) Active confirmed Problem Dysphagia (24788922) Dysphagia (R13.10) Active confirmed Problem Stricture of esophagus (01532206) Esophageal obstruction (K22.2) Active confirmed Problem Gastroesophageal reflux disease (387708650) GERD (gastroesophageal reflux disease) (K21.9) Active confirmed Encounters Encounter Location Date Provider Diagnosis [facility] [place] [address] [place] [phone] 04/04/2024 Johann Candelario Colon cancer screeni ng Z12.11 ; Diverticulosis of large intestine without perforation or abscess without bleeding K57.30 ; Other hemorrhoids K64.8 ; Esophageal obstruction K22.2 ; Hiatal hernia K44.9 and Dysphagia R13.10 [facility] [address] [place] [address] 12/14/2023 Johann Candelario Colon cancer screeni ng [...] diet, eat smaller meals, and to use xfsy-wcg-ujft ter acid suppression such as a H2-lawanda [...] diet, eat smaller meals, and to use erbh-jlf-uzww ter acid suppression such as a H2-lawanda [...] diet, eat smaller meals, and to use rgst-jeh-uccg ter acid suppression such as a H2-lawanda [...] Insured Coverage Start Date Coverage End Date [facility] Medicare Advantage Plan [address] [address] [place] [address] [id number] AMELIE MCCOY Self - patient is the insured Medical (General) History Medical History History ICD Code Hypertension Urinary incontinence Hypercholesterolemia Psoriasis 2 colonoscopies at age 49 and 59 at [facility]- -? polyps Denies [place],DM,CVA,Lung disease,renal dise ase Surgical History Surgery Date(Month/Year) appendectomy 2 bladder suspensions
--- OUTSIDE RECORDS SUMMARY | 2024-09-25 17:33 | XMS_ITS ---
Author Organization [facility] Address [address] [place] [address] Care Team Providers Care Hide Splitter Name Role Phone Etienne Page MD Primary Care Provider Johann Green Unavailable [phone] Allergies Allergen (clinical drug ingredient) Drug/Non Drug [...] Status Risk Notes Problem Colon cancer screening (108677005) Colon cancer screening (Z12.11) Active confirmed Problem Gastroesophageal reflux disease (004721389) GERD (gastroesopha geal reflux disease) (K21.9) Active confirmed Problem Dysphagia (34331173) Dysphagia (R13.10) Active confirmed Encounters Encounter Location Date Provider Diagnosis [facility] [address] [place] [address] 12/14/2023 Johann Candelario Colon cancer screening Z12.11 [...] diet, eat smaller meals, and to use gwfv-fuh-kibpc er acid suppression such as a H2-lawanda [...] diet, eat smaller meals, and to use zbgh-pza-itexl er acid suppression such as a H2-lawanda [...] diet, eat smaller meals, and to use aqon-ahp-rwvnj er acid suppression such as a H2-lawanda [...] * THERON MCCOYADOB: [birth year] (68 yo F)Acc No.[id number]:12/14/2023 Progress Notes Patient:?AMELIE MCCOY Provider:?Johann Candelario MD :1955???Age:68 Y???Sex:Female D ate:12/14/2023 Address:[address] [place], [place] [address] Pcp:Etienne Page MD Subjective: * Chief Complaints: [...] past year??Never (0 point),?Points?1,?Interpretation?Negative.?Miscellaneous:?Marital status: . 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 ???Nonsmoker; occ alcohol. * Medications:?TakingCo Q [...] diet, eat smaller meals, and to use epia-sex-pcrjwtn acid suppression such as a H2-lawanda or [...] Procedure Codes:?3017F COLOR ECTAL CA SCREEN DOC [id number] TOBACCO NON-TIPEY9423 BP SCR NOT PRFRM REC REASON NOS * Preventive Medicine:? ??Counseling:?Care goal follow-up plan:?Above Normal BMI Follow-up?Giving encouragement to exercise,?BMI management provided?Yes.? ??Urinary Incontinence:?Urinary Incontinence?Assessment:?Present,?Plan of care documented:?Yes,?Type of plan of care:?Lifestyle interventions.? * Follow Up:?prn * * Sign off status: Completed true * Provider:?Johann Candelario MD Date:? 024 Generated for Enmanuel whitaker/Estuardo/Juvenal on:?09/25/2024 05:32 PM EDT History and Physical Notes * HPI [...]
--- OUTSIDE RECORDS SUMMARY | 2024-09-25 17:33 | XMS_ITS ---
Author Organization [facility] Address [address] [place] [address] Care Team Providers Care Pad Making Machine Operator Name Role Phone Etienne Page MD Primary Care Provider Johann Green Unavailable [phone] REASON FOR VISIT screening,dysphagia,gerd Problems Problem Type SNOMED Code ICD Code Onset Dates Problem Status W/U Status Risk Notes Problem Diverticular disease of colon (773018528) Diverticulosis of large intestine without perforation or abscess without bleeding (K57.30) Active confirmed Problem Stricture of esophagus (57462220) Esophageal obstruction (K22.2) Active confirmed Encounters Encounter Location Date Provider Diagnosis [facility] [place] [address], [place] [phone] 04/04/2024 Johann Candelario Colon cancer scree edmundo [...] * THERON MCCOYADOB: [birth year] (69 yo F)Acc No.[id number]:04/04/2024 EGD and COL/MAC Patient:?KARISSA MCCOY Provider:?Johann Candelario MD :1955???Age:68 Y???Sex:Female D ate:04/04/2024 Address:[address] [place] [address] , [facility] Pcp:Etienne Page MD Subjective: * Chief Complaints: [...] FLW-UP 10 YRS DOCD, Modifiers: 1P , 98966 ESOPH ENDOSCOPY, DILATION, 66310 UPPER GI ENDOSCOPY, BIOPSY, Modifiers: 59 * * The named appointment provid er may or may not be the originator of this progress note, and it is not deemed complete until electronically signed by the appointment provider. Sign off status: Pending * Provider:?Johann Candelario MD Date:? 024 Generated for Enmanuel whitaker/Estuardo/eTransmitting on:?09/25/2024 05:32 PM EDT
== END 2024-09-25 14:28 | disposition home or self-care (01) ==
PROVIDERS: PCP Internal Medicine; Visit Provider Internal Medicine Cardiovascular Disease
DX: R00.2 Palpitations (principal); I25.10 Atherosclerotic heart disease of native coronary artery without angina pectoris; I10 Essential (primary) hypertension
CPT/HCPCS: 99214; G2211

== ENCOUNTER → 2024-09-25 14:02 | Outpatient (BNVA) | payer MEDICARE, SELFPAY | PROVIDERS: PCP Internal Medicine; Visit Provider Internal Medicine Cardiovascular Disease | DX: I25.10 Atherosclerotic heart disease of native coronary artery without angina pectoris (principal); I10 Essential (primary) hypertension; R00.2 Palpitations | CPT/HCPCS: 99212 ==

== ENCOUNTER → 2024-11-07 09:01 | Outpatient (REF) | payer MEDICARE, SELFPAY ==
--- NOTE | 2024-11-07 09:05 | CA_ITS ---
Transthoracic Echocardiogram Patient (Last, First, Middle): Amelie Chahal, Gender: Female Date of : 1955 Age: 69 Procedure Date: 11/07/2024 Procedure Type: Transthoracic Echocardiogram Location: OP Height: 162.56 cm Weight: 78.02 kg BSA: 1.83 m2 Heart Rate: bpm BP: 142 / 78 mmHg Armhole Presser: TO Referring MD: Ritesh Sanders MD Symptoms: R00.2 - Palpitations Study Quality: Adequate ECG Rhythm: Sinus Conclusions: - The left ventricular systolic function is normal. The calculated ejection fraction is 59% by biplane method. - There is mild septal asymmetric hypertrophy. - No obvious valvular pathology seen on this study. Findings Left Ventricle Normal left ventricular cavity size. The left ventricular systolic function is normal. The calculated ejection fraction is 59% by biplane method. There is no evidence of regional wall motion abnormalities. Diastolic function is normal for age. There is mild septal asymmetric hypertrophy. Right Ventricle Normal right ventricular cavity size and systolic function. Atria The left atrium is moderately dilated. The right atrium is normal in size. Aortic Valve There is a normal trileaflet aortic valve. There is no aortic valve stenosis. There is trace (trivial) aortic valve regurgitation. Mitral Valve The mitral valve appears normal. There is trace mitral valve regurgitation. There is no mitral valve stenosis. Pulmonic Valve There is trace pulmonic valve regurgitation. Tricuspid Valve There is mild tricuspid valve regurgitation. There is no evidence of pulmonary hypertension. Great Vessels Small plaque is seen in the sino tubular ridge. Top normal ascending aortic size at 3.8 cm. Venous The inferior vena cava is normal in size and collapses greater than 50% with inspiration. Pericardium/Pleural There is no evidence of pericardial effusion. Prior Study Comparison No significant change compared to prior study dated: 09/26/2023. Recommendations, Care & Conclusions No obvious valvular pathology seen on this study. Measurements 2D Linear Measurements IVSd: 1.20 0.6-0.9/0.6-1.0 cm LVIDd: 4.49 3.9-5.3/4.2-5.9 cm LVIDd Index: 2.45 2.4-3.2/2.2-3.1 cm/m2 LVIDs: 3.08 2.0-3.6 cm LVPWd: 0.94 0.7-1.1 cm LA Diam: 3.70 2.7-3.8/3.0-4.0 cm LAIDs Index: 2.02 1.5-2.3 cm/m2 LV Mass: 208.95 67-162/88-224 g LV Mass Index: 114.18 43-95/49-115 g/m2 LVOT Diam: 2.30 3.0+(-)1.3 cm 2D Systolic Function EF 4C: 59.60 >55% EF 2C: 60.90 >55% EF BiP: 59.10 >55% Mitral Valve MV Pk E: 0.47 MV PK A: 0.41 MV Decel Time: 305.00 E/A: 1.20 E'Lateral: 5.44 E'Medial: 4.46 E/E' Med: 10.60 E/E' Lat: 8.70 PHT: 89.00 MVA PHT: 2.47 Decel [place]: 1.55 Aortic Valve AoV Pk Rodrick: 1.07 AoV Mn Rodrick: 0.74 AoV VTI: 0.28 AoV Pk Grad: 5.00 Aov Mn Grad: 3.00 REJI Cont.VTI: 3.33 LVOT LVOT Pk Rodrick: 0.79 LVOT Mn Rodrick: 0.57 LVOT VTI: 0.23 LVOT Pk Grad: 2.00 LVOT Mn Grad: 1.00 LVOT Diam: 2.30 LVOT Area: 4.15 Diastolic Function MV Pk E: 0.47 MV Pk A: 0.41 E/A: 1.20 E'Medial: 4.46 E/E' Med: 10.60 E' Laterial: 5.44 E/E' Lat: 8.70 Right Ventricle TAPSE (mm): 20.00 TVS' Rodrick: 11.50 Tricuspid Valve TR Pk Rodrick: 2.26 TR Pk Grad: 20.00 RA Press: 3.00 RVSP: 23.00 Great Vessels Aorta Sinus of Valsalva: 3.51 2.0-3.[address] [place]: 2.54 1.7-3.4 cm Ao Asc: 3.80 2.1-3.4 cm Updated in Other Vendor System with Status of Final Luis Samano MD electronically signed on 11/09/2024 1:59:37 PM with status of Final
--- OUTSIDE RECORDS SUMMARY | 2024-11-07 09:32 | XMS_ITS ---
Author Organization [facility] Address [address] [place] [address] Care Team Providers Care Heat Reader Name Role Phone Etienne Page MD Primary Care Provider Johann Green Unavailable [phone] Allergies Allergen (clinical drug ingredient) Drug/Non Drug [...] Status Risk Notes Problem Colon cancer screening (205952179) Colon cancer screening (Z12.11) Active confirmed Problem Gastroesophageal reflux disease (001616423) GERD (gastroesopha geal reflux disease) (K21.9) Active confirmed Problem Dysphagia (13433919) Dysphagia (R13.10) Active confirmed Encounters Encounter Location Date Provider Diagnosis [facility] [address] [place] [address] 12/14/2023 Johann Candelario Colon cancer screening Z12.11 [...] diet, eat smaller meals, and to use kisi-ueo-sjgdm er acid suppression such as a H2-lawanda [...] diet, eat smaller meals, and to use cbaf-kys-lzrmd er acid suppression such as a H2-lawanda [...] diet, eat smaller meals, and to use okqe-bbo-ghufs er acid suppression such as a H2-lawanda [...] * THERON MCCOYADOB: [birth year] (68 yo F)Acc No.[id number]:12/14/2023 Progress Notes Patient:?AMELIE MCCOY Provider:?Johann Candelario MD :1955???Age:68 Y???Sex:Female D ate:12/14/2023 Address:[address] [place], [place] [id number] Pcp:Etienne Page MD Subjective: * Chief Complaints: [...] past year??Never (0 point),?Points?1,?Interpretation?Negative.?Miscellaneous:?Marital status: . 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 ???Nonsmoker; occ alcohol. * Medications:?TakingCo Q [...] diet, eat smaller meals, and to use fzqb-tdl-rjsccqx acid suppression such as a H2-lawanda or [...] Procedure Codes:?3017F COLOR ECTAL CA SCREEN DOC [id number] TOBACCO NON-DMDIQ5208 BP SCR NOT PRFRM REC REASON NOS * Preventive Medicine:? ??Counseling:?Care goal follow-up plan:?Above Normal BMI Follow-up?Giving encouragement to exercise,?BMI management provided?Yes.? ??Urinary Incontinence:?Urinary Incontinence?Assessment:?Present,?Plan of care documented:?Yes,?Type of plan of care:?Lifestyle interventions.? * Follow Up:?prn * * Sign off status: Completed true * Provider:?Johann Candelario MD Date:? 024 Generated for Enmanuel whitaker/Estuardo/Juvenal on:?11/07/2024 09:31 AM EDT History and Physical Notes * [...]
--- OUTSIDE RECORDS SUMMARY | 2024-11-07 09:32 | XMS_ITS ---
Author Organization [facility] Address [address] [place] [address] Care Team Providers Care Sales Service Supervisor Name Role Phone Etienne Page MD Primary Care Provider Johann Green Unavailable [phone] REASON FOR VISIT screening,dysphagia,gerd Problems Problem Type SNOMED Code ICD Code Onset Dates Problem Status W/U Status Risk Notes Problem Diverticular disease of colon (094546983) Diverticulosis of large intestine without perforation or abscess without bleeding (K57.30) Active confirmed Problem Stricture of esophagus (77599158) Esophageal obstruction (K22.2) Active confirmed Encounters Encounter Location Date Provider Diagnosis [facility] [place] [address] [place], [place] [phone] 04/04/2024 Johann Candelario Colon cancer scree edmundo [...] * THERON MCCOYADOB: [birth year] (69 yo F)Acc No.[id number]:04/04/2024 EGD and COL/MAC Patient:?KARISSA MCCOY Provider:?Johann Candelario MD :1955???Age:68 Y???Sex:Female D ate:04/04/2024 Address:[address] [place] [address] , [facility] Pcp:Etienne Page MD Subjective: * Chief Complaints: [...] FLW-UP 10 YRS DOCD, Modifiers: 1P , 27910 ESOPH ENDOSCOPY, DILATION, 93400 UPPER GI ENDOSCOPY, BIOPSY, Modifiers: 59 * * The named appointment provid er may or may not be the originator of this progress note, and it is not deemed complete until electronically signed by the appointment provider. Sign off status: Pending * Provider:?Johann Candelario MD Date:? 024 Generated for Enmanuel whitaker/Estuardo/eTransmitting on:?11/07/2024 09:31 AM EDT
--- OUTSIDE RECORDS SUMMARY | 2024-11-07 09:32 | XMS_ITS | Patient Health Record ---
Author Organization [facility] Address [address] [place] [address] Care Team Providers Care Machine Hamper Maker Name Role Phone Etienne Page MD Primary Care Provider Johann Green [phone] Allergies Allergen (clinical drug ingredient) Drug/Non Drug Allergy documented on EMR Reaction Allergy Type Onset Date Status lisinopril Lisinopril Unknown Drug Allergy Activ e Results Component Value Reference Range Notes Pathology (Not yet reviewed by provider) Interpretation: Performing Lab:[facility], [address] [place] [id number] Notes/Report: Name: Paige Mccoy Age/Sex: 68/F : 1955 Unit#: [id number] Attend Dr: Johann Candelario MD Re04/04/24 Status : [facility] Location: [facility] Disch: SPEC : [id number] RECD : 04/04/24 STATUS: MEL FINN NUM: [id number] ADALI: 04/04/[address] [facility] [address]: Johann Candelario MD ENTERED: 04/04/2411 34 SP TYPE: Surgical OTHR DR: Etienne Page MD ORDERED: HE Stain/6, Gross Micro L4, Special st. 2, AB/PAS Addendum Addendum 1 Entered: 04/09/24 Additional level wit h AB/PAS on A is negative for intestinal metaplasia. Control stains appropriately. Addendum Signed ____ __(signature on file) Danni Cayden 04/09/241227 Diagnosis A. Esophagogastric j unction, at [...] Paige Mccoy Age/Sex: 68/F : 1955 Unit#: [id number] Attend Dr: Johann Candelario MD Re04/04/24 Status : [facility] Location: [facility] Disch: SPEC : [id number] RECD : 04/04/24 STATUS: MEL FINN NUM: [id number] ADALI: 04/04/[address] [facility] [address]: Johann Candelario MD ENTERED: 04/04/24- [...] microscopic examination, 3 pieces in cassette [facility]. [facility] Special studies orde red and performed: AB/PAS stains on A1. Copies To: Etienne Page MD [facility] Primary Care,[place] [address] [place], [place] [id number] Johann Candelario MD [facility] [address] [place] [address] Signed (si gnature on file) Danni [place] 04/05/24 1626 END OF REPORT Reason For [...] Status Risk Notes Problem Colon cancer screening (056401584) Colon cancer screening (Z12.11) Active confirmed Problem Diverticular disease of colon (859332523) Diverticulosis of large intestine without perforation or abscess without bleeding (K57.30) Active confirmed Problem Dysphagia (89886949) Dysphagia (R13.10) Active confirmed Problem Stricture of esophagus (99686543) Esophageal obstruction (K22.2) Active confirmed Problem Gastroesophageal reflux disease (159325566) GERD (gastroesophageal reflux disease) (K21.9) Active confirmed Encounters Encounter Location Date Provider Diagnosis [facility] Out[place] [address] [place] [phone] 04/04/2024 Johann Candelario Colon cancer screeni ng Z12.11 ; Diverticulosis of large intestine without perforation or abscess without bleeding K57.30 ; Other hemorrhoids K64.8 ; Esophageal obstruction K22.2 ; Hiatal hernia K44.9 and Dysphagia R13.10 [facility] [address] [place] [address] 12/14/2023 Johann Candelario Colon cancer screeni ng [...] diet, eat smaller meals, and to use thzu-exq-bqzr ter acid suppression such as a H2-lawanda [...] diet, eat smaller meals, and to use zuxm-ncu-hixn ter acid suppression such as a H2-lawanda [...] diet, eat smaller meals, and to use lzzv-pyp-pjgx ter acid suppression such as a H2-lawanda [...] Insured Coverage Start Date Coverage End Date [facility] Medicare Advantage Plan [address] [address] [place] [address] [id number] AMELIE MCCOY Self - patient is the insured Medical (General) History Medical History History ICD Code Hypertension Urinary incontinence Hypercholesterolemia Psoriasis 2 colonoscopies at age 49 and 59 at [facility]- -? polyps Denies [place],DM,CVA,Lung disease,renal dise ase Surgical History Surgery Date(Month/Year) appendectomy 2 bladder suspensions
== END ==
LOC: HO.CARD 09:01
PROVIDERS: Visit Provider Internal Medicine Cardiovascular Disease
DX: R00.2 Palpitations (principal)
CPT/HCPCS: 93242; 93306

== ENCOUNTER → 2024-11-07 09:05 | Outpatient (BNV) | payer MEDICARE, SELFPAY | PROVIDERS: Visit Provider Internal Medicine | DX: I42.2 Other hypertrophic cardiomyopathy (principal); I51.7 Cardiomegaly; I36.1 Nonrheumatic tricuspid (valve) insufficiency | CPT/HCPCS: 93306 ==

== ENCOUNTER 2024-12-05 11:14 | Outpatient (AMB) | payer MEDICARE, SELFPAY ==
[2024-12-05 11:19] VITALS: BP 118/68; PULSE 78; BMI 29.3
--- NOTE | 2024-12-05 11:19 | MHC.OFFVIS ---
Vital Signs 12/05/24 11:19 Height 5 ft 5 in Weight 176 lb BMI 29.3 BP 118/68 Blood Pressure Location Lt brachial Position Sitting Pulse 78 Pulse Source Pulse Oximeter Intake Visit Reasons: 2m follow up Allergies GUY Inhibitors Allergy (Intermediate, Verified 09/21/24 10:24) cough Medication List - Last Reconciled 12/05/24 by Ritesh Sanders MD albuterol sulfate 90 mcg/actuation inhalation PRN aspirin 81 mg PO DAILY atorvastatin 20 mg PO DAILY coenzyme Q10 (Ultra CoQ10) 150 mg PO DAILY hydrochlorothiazide 25 mg PO DAILY ketoconazole 2% 1 appl topical 2XW metoprolol succinate ER 12.5 mg (1/2 x 25 mg) PO DAILY omega-3 fatty acids (Fish Oil Concentrate) 1,000 mg PO DAILY spironolactone 12.5 mg (1/2 x 25 mg) PO DAILY triamcinolone acetonide 0.5% 1 appl topical DAILY HPI Comments Details: Amelie comes for follow-up patient continues to have exertional shortness of breath. However she says that she was prescribed inhalers at was too high for core. With the insurance companies. She continues to have intermittent episodes of chest discomfort with a not clearly exertional in nature. She had episodes of palpitations in the past which have not been as bothersome. Holter monitor showed frequent PACs and PVCs short runs. Echocardiogram showed normal LV ejection fraction. She says a blood pressure remains labile with systolic blood pressure many times in 140. Sometimes a blood pressure is in the mid 110s and says she feels weak and tired at that time. She takes all her medications. Her most recent LDL was well optimized. [facility] Medical History Psoriasis GERD (gastroesophageal reflux disease) Obesity CAD (coronary artery disease) Hyperlipidemia Hypertension Surgical History History of colonoscopy (~04/04/24) History of cystocele History of appendectomy History of cystoscopy H/O basal cell carcinoma excision Family History Father No problems noted. Mother Stomach cancer Social History Housing: Condominium Alcohol intake: current Alcohol intake frequency: holidays/special occasions only Patient Tobacco Use Status: Former Tobacco user e-Cigarette/Vaping Use: Never Used Second Hand Smoke Exposure: Yes service: No Current occupational status: employed Current occupational exposures/hazards: No Cognitive needs: No Hearing needs: No Vision needs: Yes Review of Systems Const Denies weakness ENT Reports no additional complaints and Denies dizziness Card Reports no additional complaints, Denies chest pain, Denies chest pain with activity, Denies syncope, Denies rapid heart rate, Denies pedal edema, Denies edema, Denies leg edema, Denies lightheadedness, Denies palpitations, Denies dyspnea, Denies dyspnea on exertion and Denies orthopnea Resp Reports no additional complaints, Denies cough, Denies dyspnea and Denies dyspnea on exertion GI Denies hematochezia and Denies change in stool character Musc Denies abnormal gait, Denies muscle cramps, Denies muscle weakness, Denies numbness, Denies radiating pain into limb and Denies tingling Neuro Denies abnormal gait, Denies dizziness, Denies syncope, Denies numbness, Denies tingling and Denies weakness Endo Denies palpitations Physical Exam Vital Signs: Last Vital Signs Pulse 78 12/05/24 11:19 BP 118/68 12/05/24 11:19 BMI result Body Mass Index 29.3 Const General: cooperative, comfortable, no acute distress, alert, awake and well groomed Nutritional Appearance: overweight Orientation/consciousness: patient oriented x3 Limitations: no limitations Neck Neck: Yes trachea midline, Yes supple and Yes no JVD Resp Effort & Inspection: normal respiratory effort Auscultation: clear to auscultation bilaterally Cardio Jugular venous distension: no JVD Palpation: normal PMI Rate: regular rate Rhythm: regular rhythm Heart sounds: S1 normal heart sound present, S2 normal heart sound present and Other heart sounds present ( S4 present) GI Auscultation: normal bowel sounds Skin General skin exam: no rashes or lesions noted Neuro General: patient oriented x3 and no focal motor deficits Extrem General: Yes no clubbing, cyanosis or edema Psych Appearance: grossly normal Assessment & Plan Assessment & Plan (1) Cardiac arrhythmia: Code(s): I49.9 - Cardiac arrhythmia, unspecified Category: Medical Plan: Cardiac arrhythmias with frequent PACs and PVCs in this elderly woman could be symptomatic. She does have short episodes of SVT. We discussed about having prolonged episodes and having a own EKG device to see if she has any prolonged episode that will require alternative treatment including ablation. If she has increasing symptoms can further increase metoprolol to 25 mg daily. Reduction in his stimulant use especially caffeine use was discussed. Stress mitigation strategies were discussed. Advised to call me with worsening symptoms. (2) CAD (coronary artery disease): Comment: Nonobstructive CAD with 30% lesion in the LAD and circumflex artery by coronary CTA, February 2021 Code(s): I25.10 - Atherosclerotic heart disease of [place] coronary artery without angina pectoris Category: Medical Plan: CAD with nonobstructive coronary disease. Continue low-dose aspirin therapy. Continue current statin dose with well optimized LDL on current medications. Continue aggressive blood pressure control. (3) Hypertension: Code(s): I10 - Essential (primary) hypertension Category: Medical Plan: Elevated blood pressure with somewhat labile nature blood pressure and poor tolerance to lowering of her blood pressure with symptoms of fatigue and tiredness. Discussed about managing this. Advised to continue monitor blood pressure at home maintain a log. Low-salt diet was discussed. Continue current therapy and she is currently not interested in uptitrate therapy. Advised to call me with any worsening blood pressure control at home. Will follow up in the clinic in 1 year's time, sooner p.r.n.. Thank you for allowing me to partake in her care Coding Level of Care Code Est Pt Level 4 (94020) Complex EM visit Add On G2211 Diagnoses Cardiac arrhythmia I49.9 CAD (coronary artery disease) I25.10 Hypertension I10
--- OUTSIDE RECORDS SUMMARY | 2024-12-05 12:11 | XMS_ITS | Patient Health Record ---
Author Organization [facility] Address [address] [place] [address] Care Team Providers Care Warrant Clerk Name Role Phone Etienne Page MD Primary Care Provider Johann Green [phone] Allergies Allergen (clinical drug ingredient) Drug/Non Drug Allergy documented on EMR Reaction Allergy Type Onset Date Status lisinopril Lisinopril Unknown Drug Allergy Activ e Results Component Value Reference Range Notes Pathology (Not yet reviewed by provider) Interpretation: Performing Lab:[facility], [address] [place] [phone] Notes/Report: Name: Paige Mccoy Age/Sex: 68/F : 1955 Unit#: [id number] Attend Dr: Johann Candelario MD Re04/04/24 Status : [facility] Location: [facility] Disch: SPEC : [id number] RECD : 04/04/24 STATUS: MEL FINN NUM: [id number] ADALI: 04/04/24 [facility] DR: Johann Candelario MD ENTERED: 04/04/2411 [...] Paige Mccoy Age/Sex: 68/F : 1955 Unit#: [id number] Attend Dr: Johann Candelario MD Re04/04/24 Status : [facility] Location: [facility] Disch: SPEC : [id number] RECD : 04/04/24 STATUS: MEL FINN NUM: [id number] ADALI: 04/04/24 [facility] DR: Johann Candelario MD ENTERED: 04/04/24- [...] microscopic examination, 3 pieces in cassette B. [facility] Special studies orde red and performed: AB/PAS stains on A1. Copies To: Etienne Page MD [facility] Primary Care,[place] [address] [place], [place] [id number] Johann Candelario MD [facility] [address] [place] [address] Signed (si gnature on file) Danni Cayden [...] Status Risk Notes Problem Colon cancer screening (386022122) Colon cancer screening (Z12.11) Active confirmed Problem Diverticular disease of colon (182151632) Diverticulosis of large intestine without perforation or abscess without bleeding (K57.30) Active confirmed Problem Dysphagia (68456145) Dysphagia (R13.10) Active confirmed Problem Esophageal obstruction (K22.2) Active confirmed Problem Gastroesophageal reflux disease (296572590) GERD (gastroesophageal reflux disease) (K21.9) Active confirmed Encounters Encounter Location Date Provider Diagnosis [facility] [address], [place] [id number] 04/04/2024 Johann Candelario Colon cancer screeni ng Z12.11 ; Diverticulosis of large intestine without perforation or abscess without bleeding K57.30 ; Other hemorrhoids K64.8 ; Esophageal obstruction K22.2 ; Hiatal hernia K44.9 and Dysphagia R13.10 [facility] [address] [place] [address] 12/14/2023 Johann Candelario Colon cancer screeni ng [...] diet, eat smaller meals, and to use affs-hbe-hbjo ter acid suppression such as a H2-lawanda [...] diet, eat smaller meals, and to use zabk-jfv-qiwj ter acid suppression such as a H2-lawanda [...] diet, eat smaller meals, and to use yivi-zza-apry ter acid suppression such as a H2-lawanda [...] Insured Coverage Start Date Coverage End Date [facility] Medicare Advantage Plan [address] [address] [place] [address] [id number] AMELIE MCCOY Self - patient is the insured Medical (General) History Medical History History ICD Code Hypertension Urinary incontinence Hypercholesterolemia Psoriasis 2 colonoscopies at age 49 and 59 at [facility]? polyps Denies [place],DM,CVA,Lung disease,renal dise ase Surgical History Surgery Date(Month/Year) appendectomy 2 bladder suspensions
== END 2024-12-05 11:35 | disposition home or self-care (01) ==
PROVIDERS: Visit Provider Internal Medicine Cardiovascular Disease
DX: I49.9 Cardiac arrhythmia, unspecified (principal); I25.10 Atherosclerotic heart disease of native coronary artery without angina pectoris; I10 Essential (primary) hypertension
CPT/HCPCS: 99214; G2211

== ENCOUNTER → 2024-12-05 11:14 | Outpatient (BNVA) | payer MEDICARE, SELFPAY | PROVIDERS: Visit Provider Internal Medicine Cardiovascular Disease | DX: I49.9 Cardiac arrhythmia, unspecified (principal); I25.10 Atherosclerotic heart disease of native coronary artery without angina pectoris; I10 Essential (primary) hypertension | CPT/HCPCS: 99212 ==

== ENCOUNTER 2025-02-27 08:50 | Outpatient (REF) | payer MEDICARE, SELFPAY ==
--- OUTSIDE RECORDS SUMMARY | 2024-04-04 04:30 | XMS_ITS ---
Author Organization [facility] Address [address] [place] [address] Care Team Providers Care Soccer Ball Assembler Name Role Phone Etienne Page MD Primary Care Provider Johann Green Unavailable [phone] REASON FOR VISIT screening,dysphagia,gerd Problems Problem Type SNOMED Code ICD Code Onset Dates Problem Status W/U Status Risk Notes Problem Diverticulosis o f large intestine without perforation or abscess without bleeding (K57.30) Active confirmed Problem Stricture of esophagus (50692115) Esophageal obstruction (K22.2) Active confirmed Encounters Encounter Location Date Provider Diagnosis [facility] Outpatient [address] [place], [place] [phone] 04/04/2024 Johann Candelario Colon cancer scree edmundo [...] Of Treatment No Information Progress Notes * STEVE MCCOY: [birth year] (69 yo F)Acc No.[id number]:04/04/2024 EGD and COL/MAC Patient: KARISSA MARTINES Provider: Per Candelario MD :1955 A ge:68 Y S ex:Female Date:04/04/2024 Address:[address] [place] [address] , [facility] Pcp:Etienne Page MD Subjective: * Chief Complaints: [...] FLW-UP 10 YRS DOCD, Modifiers: 1P , 47903 ESOPH ENDOSCOPY, DILATION, 33919 UPPER GI ENDOSCOPY, BIOPSY, Modifiers: 59 * * The named appointment provid er may or may not be the originator of this progress note, and it is not deemed complete until electronically signed by the appointment provider. Sign off status: Pending * Provider: Per Candelario MD Date: 1 Generated for Enmanuel whitaker/Estuardo/Carlyransmitting on: 0 02/27/2025 09:18 AM EDT
--- OUTSIDE RECORDS SUMMARY | 2025-02-27 09:18 | XMS_ITS | Patient Health Record ---
Author Organization [facility] Address [address] [place] [address] Care Team Providers Care Nurse Research Name Role Phone Etienne Page MD Primary Care Provider Unavaila Rohith Damian Unavailable [phone] Reason For Referral No Information Medications Medication SIG (Take, Route, Frequency, Duration) Notes Start Date End Date Status amLODIPine Besylate 5 MG 1 tablet Orally Once a day; Duration: 30 day(s) Active hydroCHLOROthiazide 25 MG 1 tablet Orall y Once a day; Duration: 30 day(s) Active Tazorac 0.05 % 1 application a thin film to affected area in the evening Externally Once a day Active Fish Oil as directed Active Desonide 0.05 % 1 application a thin film to affected area Externally Twice a day Active Ranitidine HCl 150 MG 1 tablet Orally Tw ice a day; Duration: 30 day(s) Active Loratadine 10 MG 1 tablet Orally Once a day; Duration: 30 day(s) Active Problems Problem Type SNOMED Code ICD Code Onset Dates Problem Status W/U Status Risk Notes Problem Bursitis (48537567) Bursitis (727.3) Active confirmed Problem Hallux valgus (199839994) Hallux Valgus (735.0) Active confirmed Problem Metatarsalgia (86746490) Metatarsalgia (726.70) Active confirmed Plan Of Treatment No Information Insurance Providers Payer Name Payer Address Payer Phone Subscriber Number Group Number Insured Name Patient Relationship to Insured Coverage Start Date Coverage End Date [facility] [address] [place] [address] [id number] Amelie Chahal Self - patient is the insured Medical (General) History Medical History History ICD Code back, hip, knee pain hypertension psoriasis/eczema chicken pox vascular grafts Surgical History Surgery Date(Month/Year) skin cancer 2004 appendectomy 2005
--- OUTSIDE RECORDS SUMMARY | 2025-02-27 09:18 | XMS_ITS | Patient Health Record ---
Author Organization [facility] Address [address] [place] [address] Care Team Providers Care Sheet Rock Installation Helper Name Role Phone Etienne Page MD Primary Care Provider Johann Green [phone] Allergies Allergen (clinical drug ingredient) Drug/Non Drug Allergy documented on EMR Reaction Allergy Type Onset Date Status lisinopril Lisinopril Unknown Drug Allergy Activ e Results Component Value Reference Range Notes Pathology (Not yet reviewed by provider) Interpretation: Performing Lab:[facility], [address] [place] [phone] Notes/Report: Reason For Referral No Information Medications Medication [...] Status Risk Notes Problem Colon cancer screening (981649797) Colon cancer screening (Z12.11) Active confirmed Problem Diverticulosis o f large intestine without perforation or abscess without bleeding (K57.30) Active confirmed Problem Dysphagia (04986647) Dysphagia (R13.10) Active confirmed Problem Stricture of esophagus (11069934) Esophageal obstruction (K22.2) Active confirmed Problem Gastroesophageal reflux disease (352446911) GERD (gastroesophageal reflux disease) (K21.9) Active confirmed Encounters Encounter Location Date Provider Diagnosis [facility] [place] [address] [place] [phone] 04/04/2024 Johann Candelario Colon cancer scree edmundo [...] Insured Coverage Start Date Coverage End Date [facility] Medicare Advantage Plan [address] [address] [place] [address] [id number] KARISSA MCCOY Self - patient is the insured Medical (General) History Medical History History ICD Code Hypertension Urinary incontinence Hypercholesterolemia Psoriasis 2 colonoscopies at age 49 and 59 at [facility]- -? polyps Denies [place],DM,CVA,Lung disease,renal dise ase Surgical History Surgery Date(Month/Year) appendectomy 2 bladder suspensions
== END 2025-02-27 08:51 | disposition home or self-care (01) ==
LOC: HO.MAMMO 08:50
DX: Z12.31 Encounter for screening mammogram for malignant neoplasm of breast (principal)
CPT/HCPCS: 77063; 77067

== ENCOUNTER → 2025-02-27 09:00 | Outpatient (BNV) | payer MEDICARE, SELFPAY | PROVIDERS: Visit Provider Radiology Body Imaging | DX: Z12.31 Encounter for screening mammogram for malignant neoplasm of breast (principal) | CPT/HCPCS: 77063; 77067 ==

== ENCOUNTER 2025-03-29 09:32 | Emergency (ER) | payer MEDICARE, SELFPAY ==
--- OUTSIDE RECORDS SUMMARY | 2024-04-04 04:30 | XMS_ITS ---
Author Organization [facility] Address [address] [place] [address] Care Team Providers Care Seater Grinder Name Role Phone Etienne Page MD Primary Care Provider Johann Green Unavailable [phone] REASON FOR VISIT screening,dysphagia,gerd Problems Problem Type SNOMED Code ICD Code Onset Dates Problem Status W/U Status Risk Notes Problem Diverticular disease of colon (445851148) Diverticulosis of large intestine without perforation or abscess without bleeding (K57.30) Active confirmed Problem Stricture of esophagus (42613459) Esophageal obstruction (K22.2) Active confirmed Encounters Encounter Location Date Provider Diagnosis [facility] Outpatient [address], [place] [id number] 04/04/2024 Johann Candelario Colon cancer scree edmundo [...] Information Progress Notes * THERON MCCOYADOB: [birth year] (69 yo F)Acc No.[id number]:04/04/2024 EGD and COL/MAC Patient: KARISSA MARTINES Provider: Per Candelario MD :1955 A ge:68 Y S ex:Female Date:04/04/2024 Address:[address] [place] [address] , [facility] Pcp:Etienne Page MD Subjective: * Chief Complaints: * 1 . Screening,dysphagia,gerd. * Medical History: Objective: * Vitals: Assessment: * Assessment: 1. C olon cancer screening - Z12.11 (Primary) 2 . D iverticulosis of large intestine without perforation or abscess without bleeding - K57.30 3 . O ther hemorrhoids - K64.8 4 . E sophageal obstruction - K22.2 5 . H iatal hernia - K44.9 6 . D ysphagia - R13.10 Plan: * Treatment: * Procedure Codes: G 0121 COLOREC CNCR SCR;COLNSCPY NO HI RSK, 0529F INTRVL 3+YRS PTS CLNSCP DOCD, Modifiers: 8P , 0528F RCMND FLW-UP 10 YRS DOCD, Modifiers: 1P , 54494 ESOPH ENDOSCOPY, DILATION, 46103 UPPER GI ENDOSCOPY, BIOPSY, Modifiers: 59 * * The named appointment provid er may or may not be the originator of this progress note, and it is not deemed complete until electronically signed by the appointment provider. Sign off status: Pending * Provider: Per Candelario MD Date: 1 Generated for Enmanuel whitaker/Estuardo/eTransmitting on: 0 03/29/2025 12:33 PM EDT
--- NOTE | ~2025-03-29 | CT_ITS ---
EXAMINATION: CT HEAD AND FACIAL BONES WITHOUT CONTRAST CLINICAL INFORMATION: Fall with head strike. COMPARISON: 02/21/2020 TECHNIQUE: Contiguous axial imaging was performed from the skull base to vertex, as well as the maxillofacial bones/mandible without intravenous administration of contrast. Multiplanar reformatted imaging was constructed from the axial data set. This CT examination was performed using dose optimization techniques as appropriate, variously including the following: *Automated exposure control *Adjustment of mA and/or kV according to patient size (this includes techniques or standardized protocols for targeted exams where dose is matched to indication/reason for exam; i.e. extremities or head) *Use of iterative reconstruction technique CT HEAD: There is no evidence of intracranial hemorrhage or extra-axial fluid collection. There is no mass effect, or edema. No CT evidence of acute territorial infarct. Ventricles, sulci, and cisterns are normal in size and configuration for patient age. No hydrocephalus. No midline shift. Negative hyperdense MCA sign. Negative insular ribbon sign. No significant white matter abnormalities. Partial empty sella. Mild atheromatous calcification of the carotid siphons and V4 segment vertebral arteries bilaterally. Globes and orbital contents image normally. No extracranial soft tissue abnormalities. The calvarium and skull base are intact without fracture. CT MAXILLOFACIAL BONES: The mandible is intact without fracture. The TM joints are normally oriented, with mild degenerative changes. The nasal bones, nasal process, maxilla, orbits, zygomatic arches, pterygoid plates, and sphenoid bone are intact without fracture. Mild left nasal septal deviation, with a mild leftward spur. Paranasal sinuses demonstrate mucous retention cysts in both maxillary sinuses, unchanged. Sinuses are otherwise normally pneumatized throughout. No paranasal sinus fractures. The mastoids and tympanic cavities are normally aerated. Imaged maxillofacial/neck soft tissues demonstrate mild right preseptal soft tissue swelling. This extends over the right frontal scalp region. CT/CT facial bones wo IV con IMPRESSION: 1. There is no evidence of maxillofacial or mandibular fracture. 2. There is right preseptal soft tissue swelling that extends over the right frontal scalp. 3. There is no acute intracranial abnormality or calvarial fracture. Electronically signed by: Leonardo Crowley MD 03/29/2025 11:20 AM EDT
[2025-03-29 09:47] VITALS: BP 164/72; PULSE 60; RESP 18; TEMP 36.4; O2SAT 97
--- NOTE | 2025-03-29 11:07 | PC.NURSE ---
pt a&ox3, vss, pt states she tripped and fell down 3 steps front facing, states she currently has a headache and some nausea 3/4 on 10 headache. denies loc, states she takes 81 mg asa. pt presently states she does not want pain medications for the headache. pt awaiting provider lashae
--- NOTE | 2025-03-29 11:38 | ED.FALL ---
HPI - Fall General Chief Complaint: Fall Stated Complaint: fell on face Time Seen by Provider: 03/29/25 11:09 Source: patient Mode of arrival: ambulatory Limitations: no limitations History of Present Illness ED Provider: HPI Narrative: 69-year-old woman on aspirin presenting with a mechanical trip and fall with facial abrasion and forehead laceration, abrasion to the right knee as well, states tetanus is up-to-date, she is not on any other blood thinners. Denies chest pain shortness of breath dizziness. Has had no nausea or vomiting or visual changes. Related Data Home Medications ?Medication ?Instructions ?Recorded ?Confirmed omega-3 fatty acids 1,000 mg 1,000 mg PO DAILY 06/26/20 12/05/24 capsule (Fish Oil Concentrate) coenzyme Q10 75 mg capsule (Ultra 150 mg PO DAILY 01/08/21 12/05/24 CoQ10) albuterol sulfate 90 mcg/actuation inhalation PRN 12/05/24 12/05/24 aerosol inhaler Previous Rx's ?Medication ?Instructions ?Recorded aspirin 81 mg tablet,delayed 81 mg PO DAILY #90 tabs 01/06/21 release atorvastatin 20 mg tablet 20 mg PO DAILY #90 tabs 03/28/24 metoprolol succinate 25 mg 12.5 mg (1/2 x 25 mg) PO DAILY #45 06/11/24 tablet,extended release 24 hr tabs spironolactone 25 mg tablet 12.5 mg (1/2 x 25 mg) PO DAILY #45 07/05/24 tabs hydrochlorothiazide 25 mg tablet 25 mg PO DAILY #90 tabs 10/09/24 ketoconazole 2 % shampoo 1 appl topical 2XW #120 mL 01/01/25 triamcinolone acetonide 0.5 % 1 appl topical DAILY #60 grams 03/01/25 topical cream Allergies Allergy/AdvReac Type Severity Reaction Status Date / Time GUY Inhibitors Allergy Intermediate cough Verified 03/29/25 09:49 Review of Systems Constitutional: Constitutional: Reports as per [facility] Past Medical History Medical History Psoriasis GERD (gastroesophageal reflux disease) Obesity CAD (coronary artery disease) Hyperlipidemia Hypertension Surgical History History of colonoscopy (~04/04/24) History of cystocele History of appendectomy History of cystoscopy H/O basal cell carcinoma excision Family History Family History Father No problems noted. Mother Stomach cancer Social History Social [facility] Alcohol intake: current Alcohol intake frequency: holidays/special occasions only Patient Tobacco Use Status: Former Tobacco user Smoked in Last 30 Days: No e-Cigarette/Vaping Use: Never Used Second Hand Smoke Exposure: Yes Use of substances other than those prescribed or required for medical reasons: No Advance Directives: No Advance Directives Information Provided: Yes service: No Current occupational status: employed Current occupational exposures/hazards: No Cognitive needs: No Hearing needs: No Vision needs: Yes Physical Exam Vital Signs: Vital Signs: Last Vital Signs Temp 97.6 F 03/29/25 11:57 Pulse 60 03/29/25 11:57 Resp 18 03/29/25 11:57 BP 164/72 H 03/29/25 11:57 Pulse Ox 97 03/29/25 11:57 O2 Del Method Room Air 03/29/25 11:57 BMI result Body Mass Index 30.0 Const: Other: Gen: ?Overall well-appearing patient HEENT: PERRLA, EOMI, no oral trauma Neck: Supple, no LAD CV: RRR, no obvious murmurs appreciated Resp: ?No wheezing rales rhonchi no stridor moving air well Abd: ?Bowel sounds are present, no tenderness no rebound no rigidity MSK: FROM, strength 5/5 all extremities Skin: 1 cm forehead laceration, facial abrasion in the infraorbital area around right [place], as well as right knee superficial abrasion Neuro: ?Alert and oriented x3, moving upper and lower extremities symmetrically, no obvious facial asymmetry noted Procedures Laceration Laceration 1: Site: face (Forehead) Size (cm): 1 Description: linear Depth: simple, single layer Pre-repair: irrigated extensively Skin layer closed with: skin adhesive and steri-strips Medical Decision Making Medical Decision Making MDM Narrative: Patient evaluated after nonsyncopal fall, tetanus up-to-date, not on blood thinners, had CT of the face and brain which has been reassuring, I cleaned out her laceration and fixed with Dermabond and Steri-Strips, see my discharge instructions regarding further abrasion care, she has no evidence for fractures of the wrists, humeri, chest wall, back pelvis or hips Differential Diagnosis Differential Diagnoses: The differential diagnosis associated with the presentation includes (See above) Radiology Impression Discussion of test interpretation with radiology: I have reviewed the radiologist's reading. (No acute findings) Prescription Management I considered prescription management with: Pain Medication and Antibiotic Discharge Plan Discharge Clinical Impression: Forehead laceration, Abrasion of face Patient Disposition: Home, Self-Care Instructions: Laceration (ED) Additional Instructions: Evaluated after a fall, you had CT of the brain and face, all of which did not reveal injury to the bone or brain, you have laceration to the forehead that was repaired with skin glue and Dermabond Steri-Strips, leave the Steri-Strips in place, you can get them wet, as the edges people off you can cut the edges, keep the other areas clean with soap and water and apply bacitracin ointment as we have discussed Any other issues or concerns come back to the ER You reported that your tetanus is up-to-date Prescriptions: No Action aspirin 81 mg tablet,delayed release (DR/EC) 81 mg PO DAILY Qty: 90 3RF atorvastatin 20 mg tablet 20 mg PO DAILY Qty: 90 3RF metoprolol succinate 25 mg tablet extended release 24 hr 12.5 mg PO DAILY Qty: 45 3RF spironolactone 25 mg tablet 12.5 mg PO DAILY Qty: 45 3RF hydrochlorothiazide 25 mg tablet 25 mg PO DAILY Qty: 90 2RF ketoconazole 2 % shampoo 1 appl topical 2XW Qty: 120 2RF triamcinolone acetonide 0.5 % cream 1 appl topical DAILY Qty: 60 3RF omega-3 fatty acids [Fish Oil Concentrate] 1,000 mg capsule 1,000 mg PO DAILY albuterol sulfate 90 mcg/actuation HFA aerosol inhaler inhalation PRN Ultra CoQ10 75 mg capsule 150 mg PO DAILY Interventions: ED Discharge Assessment Last Done: 03/29/25 11:57 Discharge Date/Time: 03/29/25 11:57 Print Language: Latvian
[2025-03-29 11:57] VITALS: BP 164/72; PULSE 60; RESP 18; TEMP 36.4; O2SAT 97
--- OUTSIDE RECORDS SUMMARY | 2025-03-29 12:33 | XMS_ITS | Patient Health Record ---
Author Organization [facility] Address [address] [place] [address] Care Team Providers Care Vault Maker Name Role Phone Etienne Page MD Primary Care Provider Johann Green [phone] Allergies Allergen (clinical drug ingredient) Drug/Non Drug Allergy documented on EMR Reaction Allergy Type Onset Date Status lisinopril Lisinopril Unknown Drug Allergy Activ e Results Component Value Reference Range Notes Pathology (Not yet reviewed by provider) Interpretation: Performing Lab:[facility], [address] [place] [phone] Notes/Report: Reason For Referral No Information Medications [...] Status Risk Notes Problem Colon cancer screening (014280804) Colon cancer screening (Z12.11) Active confirmed Problem Diverticular disease of colon (801284916) Diverticulosis of large intestine without perforation or abscess without bleeding (K57.30) Active confirmed Problem Dysphagia (37873646) Dysphagia (R13.10) Active confirmed Problem Stricture of esophagus (61939654) Esophageal obstruction (K22.2) Active confirmed Problem Gastroesophageal reflux disease (469003826) GERD (gastroesophageal reflux disease) (K21.9) Active confirmed Encounters Encounter Location Date Provider Diagnosis [facility] [place] [address] [place] [phone] 04/04/2024 Johann Candelario Colon cancer scree edmundo [...] Insured Coverage Start Date Coverage End Date [facility] Medicare Advantage Plan [address] [address] [place] [address] [id number] KARISSA MCCOY Self - patient is the insured Medical (General) History Medical History History ICD Code Hypertension Urinary incontinence Hypercholesterolemia Psoriasis 2 [place] at age 49 [address] [facility]? polyps Denies [place],DM,CVA,Lung disease,renal dise ase Surgical History Surgery Date(Month/Year) appendectomy 2 bladder suspensions
--- OUTSIDE RECORDS SUMMARY | 2025-03-29 12:33 | XMS_ITS | Patient Health Record ---
Author Organization [facility] Address [address] [facility] [place] [address] Care Team Providers Care Weight Loss Counselor Name Role Phone Etienne Page MD Primary Care Provider Unavaila Rohith Damian Unavailable [phone] Reason For Referral No Information Medications Medication [...] Status W/U Status Risk Notes Problem Bursitis (05353499) Bursitis (727.3) Active confirmed Problem Hallux valgus (806601526) Hallux Valgus (735.0) Active confirmed Problem Metatarsalgia (10578874) Metatarsalgia (726.70) Active confirmed Plan Of Treatment No Information Insurance Providers Payer Name Payer Address Payer Phone Subscriber Number Group Number Insured Name Patient Relationship to Insured Coverage Start Date Coverage End Date [facility] [address] [place] [address] [id number] Amelie Chahal Self - patient is the insured Medical (General) History Medical History History ICD Code back, hip, knee pain hypertension psoriasis/eczema chicken pox vascular grafts Surgical History Surgery Date(Month/Year) skin cancer 2004 appendectomy 2005
== END 2025-03-29 11:57 | disposition home or self-care (01) ==
PROVIDERS: Emergency Provider Emergency Medicine
DX: S01.81XA Laceration without foreign body of other part of head, initial encounter (principal); S80.211A Abrasion, right knee, initial encounter; R51.9 Headache, unspecified; X58.XXXA Exposure to other specified factors, initial encounter; Y93.89 Activity, other specified; Y92.89 Other specified places as the place of occurrence of the external cause; Y99.8 Other external cause status; Z79.899 Other long term (current) drug therapy
CPT/HCPCS: 12051; 70450; 70486; 99284

== ENCOUNTER → 2025-03-29 09:56 | Outpatient (BNV) | payer MEDICARE, SELFPAY | PROVIDERS: Emergency Provider Emergency Medicine; Visit Provider Radiology Diagnostic Radiology | DX: S00.81XA Abrasion of other part of head, initial encounter (principal); S01.81XA Laceration without foreign body of other part of head, initial encounter; W01.0XXA Fall on same level from slipping, tripping and stumbling without subsequent striking against object, initial encounter | CPT/HCPCS: 70450; 70486 ==

== ENCOUNTER 2025-03-30 09:10 | Outpatient (REF) | payer MEDICARE, SELFPAY ==
--- OUTSIDE RECORDS SUMMARY | 2024-04-04 04:30 | XMS_ITS ---
Author Organization [facility] Address [address] [place] [address] Care Team Providers Care Charging Crane Operator Name Role Phone Etienne Page MD Primary Care Provider Johann Green Unavailable [phone] REASON FOR VISIT screening,dysphagia,gerd Problems Problem Type SNOMED Code ICD Code Onset Dates Problem Status W/U Status Risk Notes Problem Diverticular disease of colon (384337228) Diverticulosis of large intestine without perforation or abscess without bleeding (K57.30) Active confirmed Problem Stricture of esophagus (01773229) Esophageal obstruction (K22.2) Active confirmed Encounters Encounter Location Date Provider Diagnosis [facility] Outpatient [address] [place], [place] [phone] 04/04/2024 Johann Candelario Colon cancer scree edmundo [...] * THERON MCCOYADOB: [birth year] (69 yo F)Acc No.[id number]:04/04/2024 EGD and COL/MAC Patient: KARISSA MARTINES Provider: Per Candelario MD :1955 A ge:68 Y S ex:Female Date:04/04/2024 Address:[address] [place] [address] , [facility] Pcp:Etienne Page MD Subjective: * Chief Complaints: [...] FLW-UP 10 YRS DOCD, Modifiers: 1P , 20285 ESOPH ENDOSCOPY, DILATION, 26345 UPPER GI ENDOSCOPY, BIOPSY, Modifiers: 59 * * The named appointment provid er may or may not be the originator of this progress note, and it is not deemed complete until electronically signed by the appointment provider. Sign off status: Pending * Provider: Per Candelario MD Date: 1 Generated for Enmanuel whitaker/Estuardo/eTransmitting on: 0 03/30/2025 09:12 AM EDT
--- OUTSIDE RECORDS SUMMARY | 2025-03-30 09:13 | XMS_ITS | Patient Health Record ---
Author Organization [facility] Address [address] [place] [address] Care Team Providers Care Life Tester [employer] Name Role Phone Etienne Page MD Primary Care Provider Unavaila Rohith Damian Unavailable [phone] Reason For Referral No Information Medications Medication [...] Status W/U Status Risk Notes Problem Bursitis (25098015) Bursitis (727.3) Active confirmed Problem Hallux valgus (403627957) Hallux Valgus (735.0) Active confirmed Problem Metatarsalgia (35204444) Metatarsalgia (726.70) Active confirmed Plan Of Treatment No Information Insurance Providers Payer Name Payer Address Payer Phone Subscriber Number Group Number Insured Name Patient Relationship to Insured Coverage Start Date Coverage End Date [facility] [address] [place] [address] [phone] [id number] Amelie Chahal Self - patient is the insured Medical (General) History Medical History History ICD Code back, hip, knee pain hypertension psoriasis/eczema chicken pox vascular grafts Surgical History Surgery Date(Month/Year) skin cancer 2004 appendectomy 2005
--- OUTSIDE RECORDS SUMMARY | 2025-03-30 09:13 | XMS_ITS | Patient Health Record ---
Author Organization [facility] Address [address] [place] [address] Care Team Providers Care Financial Reporting Analyst Name Role Phone Etienne Page MD Primary Care Provider Johann Green [phone] Allergies Allergen (clinical drug ingredient) Drug/Non Drug Allergy documented on EMR Reaction Allergy Type Onset Date Status lisinopril Lisinopril Unknown Drug Allergy Activ e Results Component Value Reference Range Notes Pathology (Not yet reviewed by provider) Interpretation: Performing Lab:[facility], [address] [place] [id number] Notes/Report: Reason For Referral No Information Medications [...] Status Risk Notes Problem Colon cancer screening (555559387) Colon cancer screening (Z12.11) Active confirmed Problem Diverticular disease of colon (271735246) Diverticulosis of large intestine without perforation or abscess without bleeding (K57.30) Active confirmed Problem Dysphagia (02384266) Dysphagia (R13.10) Active confirmed Problem Stricture of esophagus (66067469) Esophageal obstruction (K22.2) Active confirmed Problem Gastroesophageal reflux disease (063445809) GERD (gastroesophageal reflux disease) (K21.9) Active confirmed Encounters Encounter Location Date Provider Diagnosis [facility] [address] [place] [phone] 04/04/2024 Johann Candelario Colon cancer scree edmundo [...] Insured Coverage Start Date Coverage End Date [facility] Medicare Advantage Plan [address] [address] [place] [address] [id number] KARISSA MCCOY Self - patient is the insured Medical (General) History Medical History History ICD Code Hypertension Urinary incontinence Hypercholesterolemia Psoriasis 2 colonoscopies at age 49 and 59 at [facility]- -? polyps Denies HI,DM,CVA,Lung disease,renal dise ase Surgical History Surgery Date(Month/Year) appendectomy 2 bladder suspensions
== END 2025-03-30 09:11 | disposition home or self-care (01) ==
LOC: HO.CT 09:10
PROVIDERS: Visit Provider Nurse Practitioner Family
DX: R91.8 Other nonspecific abnormal finding of lung field (principal); Z87.891 Personal history of nicotine dependence
CPT/HCPCS: 71250

== ENCOUNTER → 2025-03-30 09:14 | Outpatient (BNV) | payer MEDICARE, SELFPAY | PROVIDERS: Visit Provider Radiology Diagnostic Radiology | DX: R91.8 Other nonspecific abnormal finding of lung field (principal); Z87.891 Personal history of nicotine dependence | CPT/HCPCS: 71250 ==

== ENCOUNTER 2025-06-28 11:40 | Outpatient (AMB) | payer MEDICARE, SELFPAY ==
--- OUTSIDE RECORDS SUMMARY | 2024-04-04 03:30 | XMS_ITS ---
Author Organization [facility] Address [address] [place] [address] Care Team Providers Care Coupon Collection Clerk Name Role Phone Etienne Page MD Primary Care Provider Johann Green Unavailable [phone] REASON FOR VISIT screening,dysphagia,gerd Problems Problem Type SNOMED Code ICD Code Onset Dates Problem Status W/U Status Risk Notes Problem Diverticular disease of colon (610459878) Diverticulosis of large intestine without perforation or abscess without bleeding (K57.30) Active confirmed Problem Stricture of esophagus (83757657) Esophageal obstruction (K22.2) Active confirmed Encounters Encounter Location Date Provider Diagnosis [facility] Outpatient [address] [place], [place] [id number] 04/04/2024 Johann Candelario Colon cancer scree edmundo Z12.11 ; Diverticulosis of large intestine without perforation or abscess without bleeding K57.30 ; Other hemorrhoids K64.8 ; Esophageal obstruction K22.2 ; Hiatal hernia K44.9 and Dysphagia R13.10 Assessments Encounter Date Diagnosis (ICD Code) Assessment Notes Treatment Notes Treatment Clinical Notes Section Notes 04/04/2024 Colon cancer screening (ICD-10 - Z12.11) 04/04/2024 Diverticulosis of large intestine without perforation or abscess without bleeding (ICD-10 - K57.30) 04/04/2024 Other hemorrhoids (ICD-10 - K64.8) 04/04/2024 Esophageal obstruction (ICD-10 - K22.2) 04/04/2024 Hiatal hernia (ICD-10 - K44.9) 04/04/2024 Dysphagia (ICD-10 - R13.10) Plan Of Treatment No Information Progress Notes * THERON MCCOYADOB: [birth year] (70 yo F)Acc No.[id number]:04/04/2024 EGD and COL/MAC Patient: KARISSA MARTINES Provider: Per Candelario MD :1955 A ge:68 Y S ex:Female Date:04/04/2024 Address:[address] [place] [address] , [facility] Pcp:Etienne Page MD Subjective: * Chief Complaints: * S creening,dysphagia,gerd Assessment: * Assessment: 1. C olon cancer screening - Z12.11 (Primary) 2 . D iverticulosis of large intestine without perforation or abscess without bleeding - K57.30 3 . O ther hemorrhoids - K64.8 4 . E sophageal obstruction - K22.2 5 . H iatal hernia - K44.9 6 . D ysphagia - R13.10 Plan: * Procedure Codes: G 0121 COLOREC CNCR SCR;COLNSCPY NO HI [id number] INTRVL 3+YRS PTS CLNSCP DOCD, Modifiers: 8P 0528F RCMND FLW-UP 10 YRS DOCD, Modifiers: 1P 44467 ESOPH ENDOSCOPY, [id number] UPPER GI ENDOSCOPY, BIOPSY, Modifiers: 59 Billing Information: * Procedure Codes: G0121 COLOREC CNCR SCR;COLNSCPY NO HI RSK. 0529F INTRVL 3+YRS PTS CLNSCP DOCD. Modifiers: 8P 0528F RCMND FLW-UP 10 YRS DOCD. Modifiers: 1P 06284 ESOPH ENDOSCOPY, DILATION. 53934 UPPER GI ENDOSCOPY, BIOPSY. Modifiers: 59 * The named appointment provid er may or may not be the originator of this progress note, and it is not deemed complete until electronically signed by the appointment provider. Sign off status: Pending * Provider: Per Candelario MD Date: 1 Generated for Enmanuel whitaker/Estuardo/eTransmitting on: 1 08/29/2024 11:43 AM EST
--- NOTE | 2025-06-28 11:43 | A.OFFVIS_ITS ---
Vital Signs 06/28/25 11:44 Height 5 ft 5 in Weight 179 lb 4 oz BMI 29.8 BP 158/82 H Blood Pressure Location Rt brachial Position Sitting Pulse 60 Pulse Source Pulse Oximeter Pulse Oximetry (%) 97 Oxygen Delivery Method Room Air Intake Visit Reasons: cough Allergies GUY Inhibitors Allergy (Intermediate, Verified 06/28/25 11:47) cough HPI HPI cough: Details: Amelie is a pleasant 70 year old female, former smoker, quit 10 years ago with 20 pack year history, with underlying CAD and HTN. At the last visit, she was prescribed Breo and Albuterol MDI PRN as PFT suggestive of small airways disease such as asthma. She continues to report occasional dry cough and chest tightness, which resolves with albuterol and has used infrequently. She did not trial Breo. She denies any visits to urgent care or hospitalizations related to respiratory distress since the last visit. Today she presents to review chest CT results. Prior CT 04/26 demonstrated a 5 mm low density subpleural nodule above the right hemidiaphragm in the right lung base in addition to multiple small, <2mm pulmonary nodules with RUL scarring. COUNTS INCLUDE 234 BEDS AT THE [facility] Medical History Psoriasis GERD (gastroesophageal reflux disease) Obesity CAD (coronary artery disease) Hyperlipidemia Hypertension Surgical History History of colonoscopy (~04/04/24) History of cystocele History of appendectomy History of cystoscopy H/O basal cell carcinoma excision Family History Father No problems noted. Mother Stomach cancer Social History [facility] Alcohol intake: current Alcohol intake frequency: holidays/special occasions only Patient Tobacco Use Status: Former Tobacco user e-Cigarette/Vaping Use: Never Used Second Hand Smoke Exposure: Yes service: No Current occupational status: employed Current occupational exposures/hazards: No Cognitive needs: No Hearing needs: No Vision needs: Yes Review of Systems Const Denies chills, Denies excessive sweating, Denies fever(s), Denies headache(s) and Denies night sweats Eyes Denies dry eyes, Denies irritation and Denies itchy eyes ENT Reports Normal hearing present, Denies headache(s), Denies nasal discharge, Denies post nasal drip and Denies sore throat Card Denies chest pain, Denies chest pain at rest, Denies chest pain with activity, Denies claudication, Denies leg edema, Denies orthopnea and Denies paroxysmal nocturnal dyspnea Resp Denies chest congestion, Denies excessive phlegm production, Denies pain on inspiration, Denies pain with cough, Denies stridor and Denies wheezing Musc Denies myalgias Neuro Reports Normal hearing present and Denies headache(s) Endo Denies excessive sweating Yaya/Lymph Denies lymphadenopathy Aller/Immun Denies itchy eyes, Denies seasonal rhinorrhea and Denies wheezing Physical Exam Vital Signs: Last Vital Signs Pulse 60 06/28/25 11:44 BP 158/82 H 06/28/25 11:44 Pulse Ox 97 06/28/25 11:44 Oxygen Delivery Method Room Air 06/28/25 11:44 BMI result Body Mass Index 29.8 Const General: cooperative, healthy appearing, comfortable, no acute distress, well developed and alert Orientation/consciousness: patient oriented x3 Limitations: no limitations HEENT Head: Yes normal to inspection, Yes normocephalic and Yes atraumatic Ears: hearing grossly normal bilaterally and external ears normal Eyes General: appearance normal, both eyes and all related structures Eyelids: Yes eyelids normal Sclerae: sclerae normal EOM: EOMs intact bilaterally Neck Neck: Yes normal visual inspection and Yes no lymphadenopathy Lymphatic: no lymphadenopathy noted Chest Chest palpation & inspection: normal inspection of the chest Resp Effort & Inspection: normal respiratory effort, able to speak in complete sentences, no audible wheezes, no cough, no stridor, not tachypneic, no tripod positioning and no use of accessory muscles Auscultation: clear to auscultation bilaterally Cardio Jugular venous distension: no JVD Rate: regular rate Rhythm: regular rhythm Skin Other: warm, dry General skin exam: no rashes or lesions noted Neuro General: patient oriented x3 Cranial nerves: Yes Normal hearing present Cognition (Neuro): normal cognition Gait exam (Neuro): Normal gait present Extrem General: Yes normal to inspection, Yes capillary refill normal, Yes no clubbing, cyanosis or edema and Yes no pedal edema Psych Appearance: grossly normal and well kempt Speech and movement: Normal speech and movement present and Clear speech present Affect: normal affect Attitude: cooperative Thought process: Normal thought process present Thought content: Normal thought content present Insight: Good insight present (Psych) Judgement: Good judgement present (Psych) Results Reviewed Results Reviewed: [address] [address] [address] Scan Report Signed Patient: Amelie Chahal MR#: [id number] : 1955 Acct:[id number] Age/Sex: 69 / F ADM Date: 03/30/25 Loc: HO.CT Attending Dr: Angelita Carter NP Ordering Physician: Angelita Carter NP Date of Service: 03/30/25 Procedure(s): CT chest wo IV con Accession Number(s): [id number] cc: Jessica Gaspar PA-C; Angelita Carter NP~ Report Number: [id number]: Total DLP = 170.00 mGy-cm Reason for Exam: Z87.891 - Personal history of nicotine dependence CLINICAL HISTORY: Z87.891 - Personal history of nicotine dependence CT chest without contrast Comparison: CT/SR - CT CHEST WITHOUT IV CONTRAST - 04/09/24 15:24 EDT Findings: Normal heart size. Moderate coronary artery calcification. Elongation of the aorta. The visualized thyroid and mediastinum are unremarkable. There is scarring at the right lung apex. There is no consolidation or pleural effusion. 3 mm right lower lobe nodule on image 25 without change. 3 mm right lower lobe nodule on image 23 without change. Several small right apical lung nodules measuring up to 4 mm in size (for example image 9), without change. No new pulmonary nodule. 17 mm cyst within the midbody of the pancreas, not previously evaluated. Additional 11 mm cyst within the proximal body of the pancreas without gross interval change. Severe atrophy of the distal pancreas. No pancreatic duct dilatation. Multiple liver cysts without change. No acute fractures. IMPRESSION: There are multiple small nodules within the right lung without change, compatible with benign nodules. This document has been electronically signed by: Kim Heller MD on 04/02/2025 16:04:03 Dictated By: Kim Heller MD Signed By: <Electronically signed by Kim Heller MD in OV> 04/02/25 1604 DD/ 1604 TD/TT: 04/02/25 1604 Senior It Recruiter: Assessment & Plan Assessment & Plan (1) Asthma: Code(s): J45.909 - Unspecified asthma, uncomplicated Category: Medical (2) Cough: Code(s): R05.9 - Cough, unspecified Category: Medical (3) Multiple pulmonary nodules: Code(s): R91.8 - Other nonspecific abnormal finding of lung field Category: Medical (4) Dyspnea on exertion: Code(s): R06.09 - Other forms of dyspnea Category: Medical Plan Reviewed chest CT which continues to demonstrate scarring at the right lung apex, and stability of pulmonary nodules, largest 4 mm in size. Will repeat in one year to assess stability. There was also incidental findings within the pancreas, PCP notified and has upcoming GI evaluation as well as abdominal CT. At this time she feels respiratory symptoms are controlled with Albuterol MDI PRN, advised to continue and if symptoms worsen she is aware to call. All questions were answered and patient is in agreement of plan. Will follow up in 6 months or sooner if needed. Orders: Orders CT chest wo IV con 10 Months R91.8 - Other nonspecific abnormal finding of lung field Coding Level of Care Code Est Pt Level 4 (57960) Diagnoses Asthma J45.909 Cough R05.9 Multiple pulmonary nodules R91.8 Dyspnea on exertion R06.09
--- OUTSIDE RECORDS SUMMARY | 2025-06-28 11:43 | XMS_ITS | Patient Health Record ---
Author Organization [facility] Address [address] [place] [address] Care Team Providers Care Probation And Patrol Agent Name Role Phone Etienne Page MD Primary Care Provider Johann Green Unavailable [phone] Allergies Allergen (clinical drug ingredient) Drug/Non Drug Allergy documented on EMR Reaction Allergy Type Onset Date Status lisinopril Lisinopril Unknown Drug Allergy Activ e Reason For Referral No Information Medications Medication SIG (Take, Route, Frequency, Duration) Notes Start Date End Date Status Aspirin Adult Low Dose 81 MG Tablet Delayed Release 1 tablet Orally Once a day; Duration: 30 day(s) Active Biotin Active Co Q 10 Active Atorvastatin Calcium 20 MG Tablet TAKE 1 TABLET BY MOUTH DAILY Oral; Duration: 90 Active Spironolactone 25 MG Tablet Oral; Duration: 90 Active Metoprolol Succinate ER 25 M G Tablet Extended Release 24 Hour Oral; Duration: 90 Active hydroCHLOROthiazide 25 MG Tablet Oral; Duration: 90 Active Triamcinolone Acetonide 0.5 % Cream External; Duration: 30 Active Social History Tobacco Use: Social History Observation Description Date Details (start date - stop date) Former Smoker NA - NA Social History Drugs/Alcohol: Social Info Question Answer Notes Alcohol Screen Did you have a drink containing alcohol in the past year? Yes How often did you have a drink containing alcohol in the past year? Monthly or less (1 point) How many drinks did you have on a typical day when you were drinking in the past year? 1 or 2 drinks (0 point) How often did you have 6 or more drinks on one occasion in the past year? Never (0 point) Points 1 Interpretation Negative Tobacco Use: Social Info Question Answer Notes Tobacco Use/Smoking Patient is a former smoker How long has it been since you last smoked? 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 Section Notes: Nonsmoker; occ alcohol Problems Problem Type SNOMED Code ICD Code Onset Dates Problem Status W/U Status Risk Notes Problem Colon cancer screening (524932949) Colon cancer screening (Z12.11) Active confirmed Problem Diverticular disease of colon (529998622) Diverticulosis of large intestine without perforation or abscess without bleeding (K57.30) Active confirmed Problem Dysphagia (57043743) Dysphagia (R13.10) Active confirmed Problem Stricture of esophagus (05657650) Esophageal obstruction (K22.2) Active confirmed Problem Gastroesophageal reflux disease (332885080) GERD (gastroesophageal reflux disease) (K21.9) Active confirmed Plan Of Treatment Pending Test Test Name Order Date Pathology 04/04/2024 Future Test Test Name Order Date UPPER GI ENDOSCOPY BALLOOON DILATION OF ESOPH 12/14/2023 COLONOSCOPY 12/14/2023 Insurance Providers Payer Name Payer Address Payer Phone Subscriber Number Group Number Insured Name Patient Relationship to Insured Coverage Start Date Coverage End Date [employer] Medicare Advantage Plan [address] [address] [place] [address] [id number] KARISSA MCCOY Self - patient is the insured Medical (General) History Medical History History ICD Code Hypertension Urinary incontinence Hypercholesterolemia Psoriasis 2 colonoscopies at age 49 and 59 at [facility]- -? polyps Denies NH,DM,CVA,Lung disease,renal dise ase Surgical History Surgery Date(Month/Year) appendectomy 2 bladder suspensions
[2025-06-28 11:44] VITALS: BP 158/82; PULSE 60; O2SAT 97; BMI 29.8
--- OUTSIDE RECORDS SUMMARY | 2025-06-28 11:44 | XMS_ITS | Patient Health Record ---
Author Organization [facility] Address [address] [place] [address] Care Team Providers Care Utility Bill Collector Name Role Phone Etienne Page MD Primary Care Provider Unavaila Rohith Damian Unavailable [phone] Reason For Referral No Information Medications Medication [...] affected area Externally Twice a day Active raNITIdine HCl 150 MG 1 tablet Orally Tw ice a day; Duration: 30 day(s) Active Loratadine 10 MG 1 tablet Orally Once a day; Duration: 30 day(s) Active Problems Problem Type SNOMED Code ICD Code Onset Dates Problem Status W/U Status Risk Notes Problem Bursitis (26178600) Bursitis (727.3) Active confirmed Problem Hallux valgus (162911927) Hallux Valgus (735.0) Active confirmed Problem Metatarsalgia (89545972) Metatarsalgia (726.70) Active confirmed Plan Of Treatment No Information Insurance Providers Payer Name Payer Address Payer Phone Subscriber Number Group Number Insured Name Patient Relationship to Insured Coverage Start Date Coverage End Date [facility] [address] [place] [address] [id number] Amelie Chahal Self - patient is the insured Medical (General) History Medical History History ICD Code back, hip, knee pain hypertension psoriasis/eczema chicken pox vascular grafts Surgical History Surgery Date(Month/Year) skin cancer 2004 appendectomy 2005
== END 2025-06-28 12:16 | disposition home or self-care (01) ==
LOC: HO.HPSW 11:41
PROVIDERS: Visit Provider Nurse Practitioner Family
DX: J45.909 Unspecified asthma, uncomplicated (principal); R05.9 Cough, unspecified; R91.8 Other nonspecific abnormal finding of lung field; R06.09 Other forms of dyspnea
CPT/HCPCS: 99214

== ENCOUNTER → 2025-06-28 11:40 | Outpatient (BNVA) | payer MEDICARE, SELFPAY | PROVIDERS: Visit Provider Nurse Practitioner Family | DX: J45.909 Unspecified asthma, uncomplicated (principal); R05.3 Chronic cough; R91.8 Other nonspecific abnormal finding of lung field; R06.09 Other forms of dyspnea; Z87.891 Personal history of nicotine dependence; J82.83 Eosinophilic asthma | CPT/HCPCS: 99212 ==